=== PATIENT | female | born 1940 | race Caucasian/White ===

== ENCOUNTER 2016-07-16 18:25 | Inpatient (IN) | payer OTHER ==
[2016-07-16 19:30] LABS: MANUAL DIFF NEEDED? NO
[2016-07-16 19:38] LABS: BASO% 0.2 % (0.0-0.8); EOS# 0.35 X1000 (0.0-0.7); EOS% 3.1 % (0.0-10.0); HEMATOCRIT 31.9 % (37.0-47.0); HEMOGLOBIN 10.5 g/dL (12.0-16.0); IMM GRAN# 0.06 X1000 (0.0-0.04); IMM GRAN% 0.5 % (0.0-0.5); LYMPH# 1.29 X1000 (1.2-3.4); LYMPH% 11.4 % (20.5-51.1); MCH 28.9 PG (27-31); MCHC 32.9 g/dL (33-37); MCV 87.9 FL (81-99); MONO# 1.62 X1000 (0.11-0.59); MONO% 14.3 % (1.7-9.3); MPV 9.4 FL (7.4-10.4); NEUT% 70.5 % (42.2-75.2); PLT 456 X1000 (130-400); RBC 3.63 XMIL (4.2-5.4)
--- NOTE | 2016-07-16 19:38 | PROVIDER DOCUMENTATION ---
HPI-Rash/Wound/ReCheck - General Chief Complaint: Post Op Complaint Stated Complaint: LT LEG POSS. BLOOD CLOT Time Seen by Provider: 07/16/16 19:06 Source: patient Allergies/Adverse Reactions: Allergies Allergy/AdvReac Type Severity Reaction Status Date / Time Iodinated Contrast Media - Allergy RASH Verified 07/16/16 19:31 Oral and [IV Dye] Home Medications: Home Medication List Medication Instructions Recorded Confirmed Last Taken Type Potassium Chloride [Klor-Con M20] 20 meq PO DAILY 07/04/16 07/16/16 07/15/16 History Tramadol [Ultram] 50 - 100 mg PO Q4H PRN PRN #30 07/13/16 07/16/16 07/09/16 Rx tablet - History of Present Illness-Dermatology Nature of Presenting Problem: Pt is a 75 yof who presents to ER with CC of LLE pain. Pt reports that she recently had a spleenectomy performed, due to complications from prior incident , and reports that she was put on Home Health until she recovers completely. Pt reports that today her home health nurse came over, and pt told her nurse about having pain in her LLE, posterior L knee. Pt's nurse told pt that her LLE looked swollen and was warm and became worried that pt may have a DVT, so she sent pt to hospital. Location: reports: lower extremity (LLE) Quality: reports: painful Severity: reports: moderate Onset/Duration: reports: unsure, this morning Timing: reports: still present Context/Associated Symptoms: reports: tender area (LLE). denies: stab wound, burn, edema, fever, headache, lesion, numbness, paresthesia, rash, sore throat Review of Systems - Adult - REVIEW OF SYSTEMS - ADULT Constitutional: denies: chills, fever, fatique, night sweats Eyes: reports: no symptoms reported Ears, Nose, Mouth & Throat: reports: no symptoms reported Cardiovascular: denies: chest pain, heart murmur, irregular heart rate, palpitations, poor circulation, syncope Respiratory: denies: cough, dyspnea on exertion, excessive sputum production, hemoptysis, pleurisy, shortness of breath, wheezing Gastrointestinal: reports: no symptoms reported Genitourinary: reports: no symptoms reported Musculoskeletal: reports: frequent leg cramps, joint pain, joint swelling, muscle aches, muscle weakness. denies: bone pain, back pain, neck pain Integumentary: reports: no symptoms reported Neurological: reports: no symptoms reported Psychiatric: reports: no symptoms reported Endocrine: reports: no symptoms reported Hematologic/Lymphatic: reports: no symptoms reported Allergic/Immunologic: reports: no symptoms reported All Other Systems: Reviewed and Negative Past History - Adult - PAST MEDICAL HISTORY-ADULT Review of Records: reports: Nursing Assessment Review, Medications Reviewed - IMMUNIZATION STATUS Childhood Immunizations: See Nurse Assessment Flu Vaccine: See Nurse Assessment Physical Exam-General - PHYSICAL EXAM-ADULT Initial Vital Signs Reviewed: Yes - CONSTITUTIONAL General Appearance: appears well, alert, moderate distress - RESPIRATORY Respiratory: chest non-tender, lungs clear, normal breath sounds. negative: respiratory distress, decreased breath sounds, accessory muscle use, crackles, rhonchi, wheezing - CARDIOVASCULAR Cardiovascular: normal peripheral pulses, regular rate, rhythm. negative: bradycardia, tachycardia, irregularly irregular - LYMPHATIC Lymphatic: no adenopathy - MUSCULOSKELETAL Back Exam: no CVA tenderness, no vertebral tenderness Extremity: calf tenderness (L), inflammation, pedal edema (+1 LLE), swelling, tenderness. negative: no pedal edema, no calf tenderness, deformity, erythema, pulse deficit - SKIN Integumentary: normal color, normal turgor, warm/dry, swelling, tenderness, warm - NEUROLOGIC Neurologic: grossly normal, no motor/sensory deficits - PSYCHIATRIC Psych/Mental Status: normal thought content, normal thought process, oriented x 3, anxious Progress - PLAN OF CARE/RESULTS Progress/Plan/Lab Results: POC: Ultrasound of LLE for possible DVT. Vital Signs - 24 hr 07/16/16 18:53 Temperature 99.5 F Pulse Rate 79 Respiratory 18 Rate Blood Pressure 147/49 O2 Sat by Pulse 98 Oximetry Orders Category Date Time Status Admit - [facility] Routine AdmDCTranf 07/16/16 20:10 Ordered Activity - Bed Rest with BRP ORDERED Care 07/16/16 20:10 Active Vital Signs Order ARRIVAL TO ROOM Care 07/16/16 20:10 Active Regular Diet Diet 07/16/16 20:10 Active CBC WITH ELECTRONIC DIFF [HEME] Stat Lab 07/16/16 19:05 Completed CMP [COMPREHENSIVE METABOLIC PANEL] [CHEM] Stat Lab 07/16/16 19:05 Received Ddimer [D-DIMER] [CHEM] Stat Lab 07/16/16 19:05 Completed Heparin 25,000 Units/D5w 250 ml Med 07/16/16 20:15 Ordered IV 12 unit/kg/hr Venous U/S Left Leg [CV] Stat Ther 07/16/16 19:10 Ordered Transfer/Admit Order [TRANSFER] Routine Transfer 07/16/16 20:11 Ordered Laboratory Tests 07/16/16 07/16/16 19:05 19:05 WBC 11.32 H RBC 3.63 L Hgb 10.5 L Hct 31.9 L MCV 87.9 MCH 28.9 MCHC 32.9 L RDW Std Deviation 13.7 Plt Count 456 H MPV 9.4 Immature Gran % (Auto) 0.5 Neut % (Auto) 70.5 Lymph % (Auto) 11.4 L [place] % (Auto) 14.3 H Eos % (Auto) 3.1 Baso % (Auto) 0.2 Immature Gran # (Auto) 0.06 H Neut # (Auto) 7.98 H Lymph # (Auto) 1.29 [place] # (Auto) 1.62 H Eos # (Auto) 0.35 Baso # (Auto) 0.02 D-Dimer 5.03 H - CONSULTS/PCP/HOSPITALIST Notification #1 *Consult/PCP/Hospitalist*: Anthony Soto (Hospitalist PA) Time Discussed: 20:16 Consult Disposition: Admit Departure - Departure Time of Disposition Order: 20:14 DIAGNOSIS: DVT (deep venous thrombosis) Qualifiers: DVT location: lower extremity Affected thrombotic vein of extremity: unspecified vein of extremity Laterality: left Chronicity: acute Qualified Code( s): I82.402 - Acute embolism and thrombosis of unspecified deep veins of left lower extremity Disposition: ADMITTED INPATIENT 09 Certified Medical Emergency: Emergent Condition: Stable Additional Instructions: ED Follow Up Instructions: You have been treated by a care provider in the Emergency Department. These instructions are being provided to you so you can have an understanding of how to care for yourself upon discharge. Upon discharge from the Emergency Department, you are responsible for making arrangements for follow-up care by a physician of your choice. Take all prescribed medications as directed. Return to the Emergency Department immediately for any new or worsening symptoms. You may call the Physician Referral phone number at [phone] to obtain a list of Physicians who are taking new patients. Referrals: Catalina Novoa CRNP [Primary Care Provider] - Attestation - Scribe Verification/Attestation Scribe:: Jose Antonio Law Acting as Scribe for:: Kale Pool Scribe documention review:: This chart was documented by a scribe and accurately reflects the service the provider performed and the decisions made by the provider.
[2016-07-16 20:15] LABS: AGAP 13; ALBUMIN 2.5 g/dL (3.5-5.0); ALKALINE PHOSPHATASE 110 U/L (32-104); BUN 8 mg/dL (8-22); CALCIUM 8.4 mg/dL (8.8-10.2); CHLORIDE 98 mmol/L (98-107); COSMO 274; GOT 25 U/L (10-30); GPT 18 U/L (10-36); POTASSIUM 3.1 mmol/L (3.5-5.1); SODIUM 138 mmol/L (136-145); TCO2 27 mmol/L (25-35); TOTAL BILIRUBIN 0.61 mg/dL (0.20-1.00)
[2016-07-16] MEDS ORDERED: HEPARIN 25,000 UNITS/D5W 250 ML IV SCH ×2 (20:15→21:45)
[2016-07-16] MEDS ORDERED: ULTRAM PO PRN (21:29)
[2016-07-16] MEDS ORDERED: ZOFRAN IV PRN (22:05)
[2016-07-16] MEDS ORDERED: TYLENOL PO PRN (22:05)
[2016-07-16] MEDS ORDERED: KLOR-CON PO ONE (22:07)
[2016-07-17 03:09] LABS: MANUAL DIFF NEEDED? NO
[2016-07-17 03:12] LABS: BASO% 0.2 % (0.0-0.8); EOS# 0.51 X1000 (0.0-0.7); EOS% 4.5 % (0.0-10.0); HEMATOCRIT 30.2 % (37.0-47.0); IMM GRAN# 0.04 X1000 (0.0-0.04); IMM GRAN% 0.4 % (0.0-0.5); LYMPH# 1.37 X1000 (1.2-3.4); LYMPH% 12.1 % (20.5-51.1); MCH 29.2 PG (27-31); MCHC 33.1 g/dL (33-37); MONO# 1.44 X1000 (0.11-0.59); MONO% 12.7 % (1.7-9.3); MPV 9.3 FL (7.4-10.4); NEUT% 70.1 % (42.2-75.2); PLT 434 X1000 (130-400); RBC 3.43 XMIL (4.2-5.4)
[2016-07-17] MEDS ORDERED: HEPARIN 25,000 UNITS/D5W 250 ML IV SCH ×2 (05:46→16:40)
[2016-07-17] MEDS: HEPARIN IV PRN ×2 (06:25→16:35)
[2016-07-17] MEDS: KLOR-CON PO SCH (08:35)
[2016-07-17 09:42] LABS: AGAP 12; BUN 8 mg/dL (8-22); CALCIUM 8.4 mg/dL (8.8-10.2); CHLORIDE 101 mmol/L (98-107); COSMO 280; POTASSIUM 3.3 mmol/L (3.5-5.1); SODIUM 140 mmol/L (136-145); TCO2 27 mmol/L (25-35)
--- NOTE | 2016-07-17 09:53 | CONSULTATION ---
DATE OF CONSULTATION: 07/16/2016 HISTORY OF PRESENT ILLNESS: Briefly, this is a patient Dr. Acosta. She is a 75-year-old female status post 1 week ago an open splenectomy to facilitate diagnosis of presumed lymphoma. She recovered well following surgery and is at rehab. She developed acute pain and swelling in the last 24 hours of left lower extremity. Prior to her presentation in the emergency department, lower extremity venous ultrasound examination showed DVT of the tibial vessels at the left lower extremity. She does have a history of DVT approximately 50 years ago peripartum, but was not on any anticoagulants prior to this surgery. Denies any chest pain, shortness of breath. PHYSICAL EXAMINATION: Vital Signs: Temperature is 99.5 degrees, pulse 79, blood pressure 147/49, oxygen saturation 98% on room air. She is 108 pounds. General: She is alert, in no acute distress. HEENT: No scleral icterus. Cardiovascular: Normal rate, regular rhythm. Abdomen: Soft, nontender, nondistended. Integument: Warm and dry. Incision is clean, dry, and intact. Extremities: Left calf is tender and slightly swollen. No significant redness. Her right leg is normal with no pain there. REVIEWED LABS: White count is 11, hematocrit is 3 (it has been stable from her previous admission), platelets 456. Creatinine is normal at 0.9. D-dimer is elevated at 5.03. Platelets are appropriate post splenectomy at 456. ASSESSMENT/PLAN: A 75-year-old female status post splenectomy. Final pathology did show a B-cell lymphoma. She admits now with her second episode of deep vein thrombosis in her left lower extremity in a perioperative setting in the setting of a recent diagnosis of lymphoma. Given the constellation of these clinical findings, recent malignancy, recent surgery and recurrent deep vein thrombosis, I have recommended her be admitted to hospitalist service and gentle titration up with therapeutic anticoagulation with a heparin drip. 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 Need to monitor hematocrit closely. We will have contacted the hospitalist service to discuss this matter with them regarding future care. Otherwise, she can eat and appears to be doing very well from a surgical standpoint, having normal bowel function.
--- NOTE | 2016-07-17 10:00 | HISTORY AND PHYSICAL ---
CHIEF COMPLAINT: Left lower extremity edema and pain. HISTORY OF PRESENTING ILLNESS: This is a 75-year-old female with a history of hypertension, who underwent a recent splenectomy about a week ago, and started developing left lower extremity swelling and edema. She was evaluated in the ER and she was found to have a DVT and due to her presenting symptoms, it was thought that she would need hospitalization for further management. At the time of my examination, she denied any headaches, visual changes, nausea, vomiting, diarrhea, fever, chills, chest pain, shortness of breath, hemoptysis, or weight changes. Complained of left lower extremity pain. PAST MEDICAL HISTORY: Includes hypertension. PAST SURGICAL HISTORY: Splenectomy, cataract surgery, back surgery. ALLERGIES: IVP dye. CURRENT MEDICATIONS: List in the MAR. SOCIAL HISTORY: Denies any history of smoking, alcohol, or illicit drug use. Lives with her and daughter. FAMILY HISTORY: No history of coronary disease. REVIEW OF SYSTEMS: Twelve point systems listed as in HPI. Other systems negative. PHYSICAL EXAMINATION: GENERAL: Cooperative, friendly female. She is resting comfortably now. VITAL SIGNS: Temperature 99.5 degrees, pulse 79, respiration 18, blood pressure 147/49, she is saturating 98%. HEENT: Atraumatic, normocephalic. Extraocular movements intact. PERRLA. NECK: Supple. CHEST: Clear to auscultation. CARDIOVASCULAR: Regular rhythm. ABDOMEN: Soft, nontender. Positive bowel sounds. EXTREMITIES: Left lower extremity edema and tenderness. NEUROLOGIC: She is awake, alert, oriented x3. : No bladder distention. SKIN: Warm. LABORATORIES AND STUDIES: Sodium 138, potassium 3.1, chloride 90, CO2 27, BUN is 8, creatinine 0.9, glucose is 105. WBC 11.32, hemoglobin 10.5, hematocrit 31.9, platelets 456,000. ASSESSMENT: This is a 75-year-old female with a history of hypertension, who underwent recent splenectomy about a week ago and developed a left lower extremity edema and tenderness. She was found to have a DVT and she will need hospitalization for further management. 1. Left lower extremity deep vein thrombosis. 2. Status post splenectomy. 3. Hypertension. 4. Mild hypokalemia. PLAN: 1. We will admit the patient to the medical floor with telemetry. 2. Start patient on a heparin drip without any bolus. 3. We will consult surgery to follow along as she had a recent splenectomy and postop care. 4. We will monitor blood pressure closely and resume antihypertensive agents. 5. We will replace her electrolytes and continue to monitor potassium. 6. We will continue to follow and reassess.
[2016-07-17] MEDS ORDERED: KLOR-CON PO ONE (16:01)
--- NOTE | 2016-07-17 17:16 | PROGRESS NOTE ---
DATE: 07/17/2016 SUBJECTIVE: The patient says she is feeling a little better. She has some mild abdominal pain and nausea and poor appetite. Her left leg is still hurting some. OBJECTIVE: Vital Signs: She is afebrile. Vital signs are stable. General: She is alert and oriented x4. No acute distress. CV: Regular rate and rhythm. Respiratory: Bilateral breath sounds. No work of breathing. GI: Soft. Minimal tenderness. Incision in the left upper quadrant is clean dry and intact. There is some mild bruising, but no erythema or drainage. Extremities: Bilateral lower extremities were examined. There is mild edema and obesity. No definite laterality is appreciated. I could not palpate any palpable cords in her popliteal fossa or calf. LABORATORY: White blood cell count 11,000, hemoglobin 10, hematocrit 30, platelet count 434. Electrolyte panel reviewed and unremarkable. ASSESSMENT AND PLAN: A 75-year-old female, status post recent open splenectomy for what is now known to be a B-cell lymphoma. She has now also developed a left lower extremity DVT I believe below the knee. The report on that study is pending. Dr. Cindi Koroma has been consulted for the lymphoma, as well as management of her DVT. This is a recurrent DVT. She had one about 50 years ago in her peripartum period. She currently is on a heparin drip and the plan is to transition her to Xarelto.
--- NOTE | 2016-07-17 17:39 | PROGRESS NOTE ---
DATE: 07/17/2016 SUBJECTIVE: This patient states that she has been having left lower extremity discomfort. She denies nausea, vomiting, diarrhea, constipation. She is not complaining of abdominal pain, just mild discomfort around the surgical scar. No fever, no chills. OBJECTIVE: Vital Signs: Temperature 98.2 degrees, pulse 94, respiratory rate 20, blood pressure 136/64, oxygen saturation 99% on room air. HEENT: Head normocephalic. No trauma. PERRLA. Neck: Supple. No JVD. No masses. Central trachea. Chest: Clear to auscultation. No wheezing. No rales. Cardiovascular: Regular rhythm and rate. No murmurs. Abdomen: Soft, nontender, positive bowel sounds. Extremity: Left lower extremity edema and mild tenderness. Neurological: This patient is alert and oriented x3. No focal neurological deficits. LABORATORY: WBC 11.3, hemoglobin 10, hematocrit 30.2, platelets 434,000. Sodium 140, potassium 3.3, chloride 101, bicarbonate 27, BUN 8, creatinine 0.9, glucose 145, calcium 8.4. ASSESSMENT AND PLAN: 1. Left lower extremity deep venous thrombosis, Hematology/Oncology has been consulted. We will continue with the anticoagulation for now. Probably we will switch prior to discharge the heparin drip to one of oral anticoagulation. 2. Spleen mass status post splenectomy done on 07/09/2016. 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 Because of this, I called Hematology/Oncology, they have evaluated this patient already. I am waiting for the report for recommendations. For now, we will continue with the same management. 3. Hypertension. The blood pressure has been stable. Continue to monitor. 4. Hypokalemia. I will replace the potassium today. She has been getting potassium daily as well. 5. Normocytic anemia. Stable. We will monitor.
--- NOTE | 2016-07-17 22:18 | Extremity Venous Study ---
PROCEDURE NAME: Venous U/S Left Leg - 07/16/2016 REFERRING PHYSICIAN: Howard Velazco M.D. and READING PHYSICIAN: Jose Acosta M.D. LIME BOILER: Jm. INDICATION: Left leg swelling. Recent history of splenectomy. FINDINGS: Deep and superficial veins of the left lower extremity were imaged throughout their course. The superficial veins were compressible and patent. The left common femoral, superficial femoral, greater saphenous, deep femoral, and popliteal veins were imaged satisfactorily. They were compressible and patent and without thrombus. However the posterior tibial and peroneal veins were noted to be containing thrombus. They were decreased in compressibility. In addition, the left lesser saphenous vein had thrombus and was noncompressible. INTERPRETATION: Acute deep vein thrombosis was present involving the left posterior tibial and peroneal veins. There is also acute superficial venous thrombosis of the lesser saphenous vein on the left. These results were called to the referring physicians.
[2016-07-18] MEDS ORDERED: HEPARIN 25,000 UNITS/D5W 250 ML IV SCH (01:20)
[2016-07-18 06:10] LABS: MANUAL DIFF NEEDED? NO
[2016-07-18 06:23] LABS: BASO% 0.2 % (0.0-0.8); EOS# 0.57 X1000 (0.0-0.7); EOS% 4.4 % (0.0-10.0); HEMOGLOBIN 10.2 g/dL (12.0-16.0); IMM GRAN# 0.06 X1000 (0.0-0.04); IMM GRAN% 0.5 % (0.0-0.5); LYMPH# 1.33 X1000 (1.2-3.4); LYMPH% 10.2 % (20.5-51.1); MCH 29.3 PG (27-31); MCHC 32.9 g/dL (33-37); MCV 89.1 FL (81-99); MONO# 1.62 X1000 (0.11-0.59); MONO% 12.4 % (1.7-9.3); MPV 9.2 FL (7.4-10.4); NEUT% 72.3 % (42.2-75.2); PLT 498 X1000 (130-400); RBC 3.48 XMIL (4.2-5.4)
[2016-07-18 06:34] LABS: AGAP 11; BUN 10 mg/dL (8-22); CALCIUM 8.2 mg/dL (8.8-10.2); CHLORIDE 101 mmol/L (98-107); COSMO 280; POTASSIUM 3.6 mmol/L (3.5-5.1); SODIUM 140 mmol/L (136-145); TCO2 28 mmol/L (25-35)
[2016-07-18] MEDS: HEPARIN 25,000 UNITS/D5W 250 ML IV SCH ×2 (10:15→23:28)
[2016-07-18] MEDS: KLOR-CON PO SCH (10:16)
[2016-07-18] MEDS ORDERED: XARELTO PO SCH (14:15)
--- NOTE | 2016-07-18 16:08 | PROGRESS NOTE ---
DATE: 07/18/2016 SUBJECTIVE: This patient states that she is feeling a little bit better. She is still complaining of left lower extremity discomfort/pain. She is not complaining of abdominal pain, just mild discomfort around the surgical scar. No fever. No chills. OBJECTIVE: Vital Signs: Temperature 99 degrees, pulse 76, respiratory rate 14, blood pressure 126/57, oxygen saturation 100% on 2 L of nasal cannula. HEENT: Head normocephalic. No trauma. PERRLA. Neck: Supple. No JVD. No masses. Central trachea. Chest: Clear to auscultation. No wheezing. No rales. Cardiovascular: RRR. No murmurs. Abdomen: Soft, nontender. Positive bowel sounds. Mild tenderness to palpation around the surgical scar that looks clean and dry. Extremities: Left lower extremity edema and mild tenderness at the level of the calf. Neurological: The patient is alert and oriented x3. No focal neurological deficits. LABORATORY: WBC 13, hemoglobin 10.2, hematocrit 31, platelets 498,000. Sodium 140, potassium 3.6, chloride 101, bicarbonate 28, BUN 10, creatinine 0.9, glucose 126, calcium 8.2. ASSESSMENT AND PLAN: 1. Left lower extremity deep vein thrombosis. She has been on heparin drip and will switch this patient to Xarelto. We will start the treatment at 7 p.m. and we will stop the heparin drip. 2. Spleen mass status post splenectomy done on 07/09/2016. We have a positive pathology result that showed diffuse large B cell lymphoma, germinal center subtype. Because of this hematology/oncology is following this patient. They will need some studies done as an outpatient like a PET scan. Once this patient is better they will monitor this patient in the clinic. 3. Hypertension. The blood pressure has been stable. Continue to monitor. 4. Hypokalemia, stable. The potassium today is normal. Continue to monitor.
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
--- NOTE | 2016-07-18 18:24 | PROGRESS NOTE ---
DATE: 07/18/2016 SUBJECTIVE: The patient says she feels okay. No significant pain. She is still sore in her abdomen. Her appetite is still low. She has not moved out of bed at all since admission. OBJECTIVE: Vital signs: She is afebrile. Vital signs are stable. General: Alert and oriented x4. No acute distress. Gastrointestinal: Soft, nondistended. Appropriately tender. Her incision is clean, dry, and intact without redness or drainage. I removed every other staple. IMAGING: Her ultrasound report shows DVT in the calf veins on the left. Her lab work is stable. ASSESSMENT AND PLAN: She is status post open splenectomy with a new diagnosis of B-cell lymphoma and now has been readmitted with a new left calf DVT. She is being transitioned from heparin drip to Xarelto tonight. I will consult physical therapy to help her with mobility. Hopefully she can be discharged tomorrow.
[2016-07-18] MEDS: XARELTO PO SCH (18:57)
[2016-07-19 04:38] VITALS: BP 125/46
[2016-07-19 06:37] LABS: MANUAL DIFF NEEDED? NO
[2016-07-19 06:44] LABS: BASO% 0.3 % (0.0-0.8); EOS# 0.73 X1000 (0.0-0.7); EOS% 6.5 % (0.0-10.0); HEMATOCRIT 31.6 % (37.0-47.0); HEMOGLOBIN 10.2 g/dL (12.0-16.0); IMM GRAN# 0.07 X1000 (0.0-0.04); IMM GRAN% 0.6 % (0.0-0.5); LYMPH# 1.21 X1000 (1.2-3.4); LYMPH% 10.8 % (20.5-51.1); MCH 29.2 PG (27-31); MCHC 32.3 g/dL (33-37); MCV 90.5 FL (81-99); MONO# 1.47 X1000 (0.11-0.59); MONO% 13.1 % (1.7-9.3); MPV 9.4 FL (7.4-10.4); NEUT% 68.7 % (42.2-75.2); PLT 514 X1000 (130-400); RBC 3.49 XMIL (4.2-5.4)
[2016-07-19 07:06] LABS: AGAP 8; BUN 11 mg/dL (8-22); CALCIUM 8.3 mg/dL (8.8-10.2); CHLORIDE 102 mmol/L (98-107); COSMO 278; POTASSIUM 3.7 mmol/L (3.5-5.1); SODIUM 139 mmol/L (136-145); TCO2 29 mmol/L (25-35)
[2016-07-19] MEDS: XARELTO PO SCH (07:12)
[2016-07-19] MEDS: KLOR-CON PO SCH (08:39)
--- NOTE | 2016-07-19 13:12 | PROGRESS NOTE ---
DATE: 07/19/2016 SUBJECTIVE: The patient is feeling better. She is eating a little and has walked with physical therapy today. She is hopeful to go home. OBJECTIVE: Vital signs: She is afebrile. Vital signs are stable. General: She is alert and oriented x4. No acute distress. Gastrointestinal: Soft, nondistended. Appropriately tender. The incisions is clean, dry, and intact. LABORATORY: White blood cell count 11,000, hemoglobin 10, platelet count 514,000. Electrolyte panel reviewed and unremarkable. ASSESSMENT AND PLAN: This is a 75-year-old female status post splenectomy with a diagnosis of B- cell lymphoma and now a newly discovered left calf DVT. She is being transition from IV heparin to p.o. anticoagulation. I believe she is set to go home with Xarelto. She is safe for discharge from a surgical standpoint and can follow up with me next week.
--- NOTE | 2016-07-19 13:29 | ECHO REPORT ---
ORDER DATE: 07/18/2016 INTERPRETING PHYSICIAN: Dr. Magdaleno Albright ECHOCARDIOGRAPHIC MEASUREMENTS: Interventricular septum: 1.0 cm. Left ventricular posterior wall: 1.0 cm. Diastolic diameter: 4.6 cm. Left atrium: 3.4 cm. Aortic root: 3.1 cm. SUMMARY OF THE 2-DIMENSIONAL IMAGIN. Aortic valve leaflets are trileaflet. Pulmonic valve was normal. Tricuspid valve was normal. There was trace pulmonary regurgitation. Mitral valve was normal. 2. Normal left ventricular cavity size. Estimated ejection fraction of 60%.. 3. There is mild mitral regurgitation. 4. Peak velocity across the aortic valve less than 2 m/sec. There is no aortic stenosis or regurgitation. There is mild tricuspid regurgitation. Peak velocity across the tricuspid valve was 3 m/sec. Pulmonary artery systolic pressure 46 mmHg. 5. There is no pericardial effusion or obvious intracardiac mass or thrombus seen.
--- NOTE | 2016-07-19 17:24 | DISCHARGE SUMMARY ---
ADMISSION DATE: 07/16/2016 DISCHARGE DATE: 07/19/2016 CONSULTATIONS: 1. Cindi Koroma M.D., Oncology. 2. Mendoza Velazco M.D., General Surgery. PERTINENT PROCEDURES: Left leg venous Dopplers showed acute DVT that was present involving the left posterior tibial and peroneal veins. Also acute superficial venous thrombosis of the lesser saphenous vein on the left. DISCHARGE DIAGNOSES: 1. Left lower extremity DVT. Patient was initially on a heparin drip. She has been transitioned to p.o. Xarelto. She will be going home with home health as well as physical therapy. 2. 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 3. Diffuse large B-cell lymphoma [facility] subtype. Patient being followed by Oncology. They would like a PET scan on an outpatient basis. 4. Hypertension stable. 5. Hypokalemia stable. HOSPITAL COURSE: Ms. Fatima is a 75-year-old, female with a history of hypertension who recently underwent a splenectomy a week ago. Also diagnosed with B-cell lymphoma by pathology. She started developing some left lower extremity swelling and edema. She was evaluated in the ED and found to have a left lower extremity deep venous thrombosis. The patient was admitted to the hospital and heparin drip without bolus was initiated. Hematology, Dr. Cindi Koroma, did see the patient. Patient will need chemotherapy. This will be done on an outpatient basis. As well she is to get a PET scan on an outpatient basis. Patient was transitioned off the heparin drip to oral Xarelto and patient will be going home on 15 mg p.o. b.i.d. for 21 days and then [address] daily [address] Acosta did consult Physical Therapy for the patient to help with her mobility. Dr. Gardner does feel that the patient is appropriate for discharge home today. 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 Rehabilitation was offered to her. 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 Patient does have home health as well as physical therapy set up. VITAL SIGNS AT TIME OF DISCHARGE: Temperature is 98.2 degrees, heart rate 77, respirations 20, blood pressure is 125/46, O2 is 100% on 2 L nasal cannula. DISCHARGE DIET: Regular with Boost supplement. DISCHARGE MEDICATIONS: 1. Klor-Con 20 mEq p.o. daily. 2. Ultram 50 to 100 mg p.o. daily. 3. Xarelto 50 mg p.o. b.i.d. for the first 21 days and then patient will start Xarelto 20 mg p.o. daily. FOLLOWUP: 1. The patient is being discharged home with home health. 2. She is to follow up with her oncologist where she will need an outpatient PET scan as well as initiation of chemotherapy. 3. She can follow up with Dr. Mendoza Velazco as indicated for postop splenectomy. 4. She can follow up with her primary care physician, KANCHAN Allen. 5. Patient has also be given instructions on her new medication, Xarelto. There is a risk for bleeding and signs to watch out for. DISCHARGE TIME: 30 minutes. Dictated by KANCHAN Foreman for Art Shah MD
== END 2016-07-19 14:15 | disposition home health service (06) | DRG 300 ==
LOC: ED 18:25 → EDIPHOLD 20:52 → 4N 20:53
PROVIDERS: ATTEND Internal Medicine
DX: I82.442 Acute embolism and thrombosis of left tibial vein (principal); C83.37 Diffuse large B-cell lymphoma, spleen; I82.492 Acute embolism and thrombosis of other specified deep vein of left lower extremity; I82.812 Embolism and thrombosis of superficial veins of left lower extremity; I10 Essential (primary) hypertension; E87.6 Hypokalemia; D64.9 Anemia, unspecified; K21.9 Gastro-esophageal reflux disease without esophagitis; Z90.81 Acquired absence of spleen; Z86.718 Personal history of other venous thrombosis and embolism; Z80.9 Family history of malignant neoplasm, unspecified; Z79.899 Other long term (current) drug therapy
CPT/HCPCS: 80048; 80053; 83615; 85025; 85379; 85730; 93306; 93971; 96374; J1644; 97110-GP; 97116-GP

== ENCOUNTER 2016-08-10 09:06 | Day surgery (SDC) ==
[2016-08-10] MEDS ORDERED: LR 1,000 ML ONE (09:43)
[2016-08-10] MEDS ORDERED: KEFZOL 1 GM/D5W 50 ML ONE (09:44)
[2016-08-10 09:53] LABS: MANUAL DIFF NEEDED? NO
[2016-08-10 09:59] LABS: BASO% 0.4 % (0.0-0.8); EOS# 0.06 X1000 (0.0-0.7); EOS% 0.7 % (0.0-10.0); HEMATOCRIT 35.8 % (37.0-47.0); HEMOGLOBIN 11.2 g/dL (12.0-16.0); LYMPH# 1.54 X1000 (1.2-3.4); LYMPH% 19.1 % (20.5-51.1); MCH 28.1 PG (27-31); MCHC 31.3 g/dL (33-37); MCV 89.9 FL (81-99); MONO# 1.25 X1000 (0.11-0.59); MONO% 15.5 % (1.7-9.3); MPV 10.2 FL (7.4-10.4); NEUT% 64.3 % (42.2-75.2); PLT 347 X1000 (130-400); RBC 3.98 XMIL (4.2-5.4)
[2016-08-10] MEDS ORDERED: HEPARIN ONE (11:05)
[2016-08-10] MEDS ORDERED: NS 250 ML ONE (11:05)
[2016-08-10] MEDS ORDERED: MARCAINE 0.25% PF/EPI 1:200,000 ONE (11:05)
[2016-08-10] MEDS ORDERED: XYLOCAINE 1%/EPI 1:100,000 ONE (11:05)
[2016-08-10 12:30] LABS: BANDS 4 % (0-1); LYMPHS 20 % (21-51); MONO 14 % (1-9)
[2016-08-10] MEDS ORDERED: DIPRIVAN 1% ONE (12:32)
[2016-08-10 12:45] LABS: FLOW CYTOMETERY SOURCE BONE MARROW; LEUKEMIA LYMPHOMA BY FLOW REFERRED FOR TESTING
[2016-08-10] MEDS ORDERED: ZOFRAN IV PRN (13:06)
[2016-08-10] MEDS ORDERED: BUPRENEX IV PRN (13:06)
[2016-08-10] MEDS ORDERED: NORCO-7.5 PO PRN (13:06)
--- NOTE | 2016-08-10 13:20 | Diag Imaging Result Document ---
PROCEDURE NAME: CHEST-PORTABLE - 08/10/2016 SINGLE FRONTAL RADIOGRAPH OF THE CHEST: COMPARISON: 05/30/2016. FINDINGS: There is a newly placed right chest port. The tip projects over the lower SVC in the expected position just superior to the atriocaval junction. There is no evidence of pneumothorax post placement. Inspiration is suboptimal. The lungs appear to be grossly clear. Cardiac silhouette and central vasculature are grossly unremarkable. IMPRESSION: Interval placement of right chest port in the expected position as described with no evidence of pneumothorax post placement.
[2016-08-10 13:26] VITALS: BP 141/60
[2016-08-10] MEDS ORDERED: XYLOCAINE-MPF 2% ONE (13:41)
--- NOTE | 2016-08-10 14:51 | OPERATIVE NOTE ---
PROCEDURE DATE: 08/10/2016 PREOPERATIVE DIAGNOSIS: Lymphoma. POSTOPERATIVE DIAGNOSIS: Lymphoma. PROCEDURE PERFORMED: Insertion of Port-A-Cath with fluoroscopic and ultrasound guidance. SURGEON: Jose Acosta MD ANESTHESIA: Local, MAC. ESTIMATED BLOOD LOSS: 5 mL. COMPLICATIONS: None apparent. SPECIMENS: None. FINDINGS: The right internal jugular vein was visualized with the Site-Rite ultrasound. It was compressible and patent and without thrombus. Fluoroscopic imaging revealed the wire passing into the right atrium and the tip of the catheter positioning to the superior vena cava-right atrial junction. TECHNIQUE: She was brought to the operating room and placed supine on the table. She was prepped and draped in the usual sterile fashion. IV sedation was induced. Lidocaine 1% was used to anesthetize the skin and subcutaneous tissues below the right clavicle, where an incision was made with a 15 blade. Dissection was carried down through the subcutaneous tissue with cautery. A pocket was created anterior to the fascia with cautery and blunt finger dissection. She was then placed in Trendelenburg. The right internal jugular vein was found with the ultrasound. The skin over the vein was anesthetized with lidocaine. An incision was made in the skin over the vein with an 11 blade. The vein was then accessed with the syringe and needle under ultrasound guidance. The wire passed through the needle into the vein and was confirmed to be in the right atrium with fluoroscopy. The subcutaneous tissues between the 2 incisions was anesthetized with lidocaine and the catheter was tunneled subcutaneously from the lower incision out through the neck incision. The sheath and dilator were then passed over the wire into the jugular vein. The wire and dilator were removed. The catheter was passed into the sheath. The sheath was removed. The tip of the catheter was positioned at the appropriate junction with fluoroscopy. The catheter was cut to size and fixed to the port. The port was anchored to the chest fascia with 2-0 Surgipro at 2 o'clock, 6 o'clock, and 10 o'clock. The port was accessed and martínez back blood easily. It was flushed with heparinized saline easily. The incisions were closed with interrupted subcutaneous 3-0 Polysorb and a running 4-0 subcuticular Monocryl and Steri-Strips. There were no apparent complications. I turned her over to Dr. Marcano for bone marrow biopsy at this point.
== END 2016-08-10 13:30 | disposition home or self-care (01) ==
LOC: OR 09:06
PROVIDERS: ATTEND Surgery
DX: C83.37 Diffuse large B-cell lymphoma, spleen (principal); D63.0 Anemia in neoplastic disease; I10 Essential (primary) hypertension; Z90.81 Acquired absence of spleen; K21.9 Gastro-esophageal reflux disease without esophagitis; Z85.828 Personal history of other malignant neoplasm of skin; Z86.718 Personal history of other venous thrombosis and embolism; Z79.899 Other long term (current) drug therapy; Z79.01 Long term (current) use of anticoagulants; Z82.49 Family history of ischemic heart disease and other diseases of the circulatory system
CPT/HCPCS: 71010; 77001; 85025; 85999; 88305; 88311; 88313; C1788; J0690; J7050; J7120

== ENCOUNTER 2016-11-19 12:21 | Inpatient (IN) ==
[2016-11-19] MEDS ORDERED: TYLENOL PO ONE (15:00)
[2016-11-19] MEDS ORDERED: BENADRYL PO ONE (15:00)
[2016-11-19] MEDS ORDERED: INVANZ 1 GM/NS 1 GM/50 ML IVPB IV ONE (15:00)
[2016-11-19] MEDS ORDERED: NS 500 ML IV ONE (15:00)
--- NOTE | 2016-11-19 15:07 | Diag Imaging Result Doc PS360 ---
EXAM: CHEST-2 VIEWS INDICATION: neutropenic fever TECHNIQUE: 2 views COMPARISON: 08/10/2016 FINDINGS: A right chest port is in stable position. There is suggestion of minimal subsegmental atelectasis at the left lung base. The lungs are grossly clear otherwise. There is no discrete pleural fluid collection or pneumothorax. The cardiomediastinal silhouette and central vasculature are grossly unremarkable. IMPRESSION: Suggestion of minimal subsegmental atelectasis at the left lung base. No definite acute pathology, otherwise. Electronically signed by Milton Scanlon 11/19/2016 3:05 PM
[2016-11-19] MEDS ORDERED: ZOFRAN IV PRN (15:21)
[2016-11-19] MEDS ORDERED: DUONEB (A & A) INH PRN (15:21)
[2016-11-19] MEDS ORDERED: ZOSYN 3.375 GM/NS 3.375 GM/50 ML IVPB IV SCH (15:30)
[2016-11-19] MEDS: DUONEB (A & A) INH SCH ×3 (16:00→22:35)
[2016-11-19 16:02] LABS: INR 1.2; PROTIME 12.7 Seconds (9.2-11.7); PTT 32.2 Seconds (22.0-36.0)
[2016-11-19 16:17] LABS: AGAP 12; ALBUMIN 3.1 g/dL (3.5-5.0); ALKALINE PHOSPHATASE 75 U/L (32-104); BUN 19 mg/dL (8-22); CALCIUM 8.7 mg/dL (8.8-10.2); CHLORIDE 100 mmol/L (98-107); COSMO 282; GOT 12 U/L (10-30); GPT 13 U/L (10-36); MAGNESIUM 1.9 mg/dL (1.5-2.7); POTASSIUM 3.4 mmol/L (3.5-5.1); SODIUM 140 mmol/L (136-145); TCO2 28 mmol/L (25-35); TOTAL BILIRUBIN 1.34 mg/dL (0.20-1.00); TOTAL PROTEIN 5.5 g/dL (6.3-8.3)
[2016-11-19 16:27] LABS: HEMATOCRIT 25.1 % (37.0-47.0); HEMOGLOBIN 8.4 g/dL (12.0-16.0); LYMPH# 0.13 X1000 (1.2-3.4); MCH 33.6 PG (27-31); MCHC 33.5 g/dL (33-37); MCV 100.4 FL (81-99); MONO# 0.13 X1000 (0.11-0.59); PLT < 6 X1000 (130-400)
[2016-11-19] MEDS ORDERED: VANCOMYCIN IV PER PHARMACY MISC SCH (16:30)
[2016-11-19 16:38] LABS: MANUAL DIFF NEEDED? NO
[2016-11-19] MEDS: NS 1,000 ML IV SCH (16:39)
[2016-11-19] MEDS: MYCOSTATIN SUSP PO SCH ×2 (16:45→22:32)
[2016-11-19] MEDS ORDERED: VANCOMYCIN 1,400 MG in NS 250 ML IV ONE ×2 (18:00→21:00)
--- NOTE | 2016-11-19 18:15 | HISTORY AND PHYSICAL ---
ONCOLOGIST: Cindi Koroma MD PRIMARY CARE PROVIDER: KANCHAN Allen CHIEF COMPLAINT: Generalized weakness, abdominal pain, and abnormal labs. HISTORY OF PRESENT ILLNESS: Ms. Fatima is a 76-year-old female with a history of diffuse B-cell lymphoma, status post splenectomy in July 2016. She has been on chemotherapy under the direction of Dr. Koroma an received her last dose on 11/12/2016. Over the past few days, she has had worsening fatigue, abdominal pain, some mild diarrhea with hematochezia, and a fever. The pain is described in the right upper and lower quadrant. She denies any vomiting, but does have some cough and has been having some yellowish nasal discharge. Fevers reached a T-max of 100.5 degrees Fahrenheit. She came in to see Dr. Koroma today who martínez blood work and saw that she was neutropenic and ultimately recommended the patient be directly admitted to our service. She is currently on the floor, hemodynamically stable, and labs are pending. PAST MEDICAL HISTORY: 1. Diffuse B-cell lymphoma. 2. Hypertension. 3. History of DVT. 4. Active chemotherapy. 5. GERD. 6. Chronic anemia. PAST SURGICAL HISTORY: She has had a splenectomy, back surgery, cataract surgery, and right breast biopsy. SOCIAL HISTORY: The patient lives with her . She has no history of tobacco, alcohol, or drug use. FAMILY HISTORY: Noncontributory at this time. REVIEW OF SYSTEMS: A 14-point review of systems was obtained and found to be negative with the exception of the HPI. HOME MEDICATIONS: Currently being compiled. ALLERGIES: IV and oral contrast dye. PHYSICAL EXAMINATION: VITAL SIGNS: Pending. GENERAL: This is a chronically ill- and weak-appearing 76-year-old female, lying in the hospital bed. No acute distress. NEUROLOGIC: The patient is awake, alert, oriented. She follows commands without focal deficits. HEENT: Head is atraumatic, normocephalic. Her pupils are equal, round, and reactive to light. Oral mucosa is dry. Trachea is midline. No JVD. No carotid bruits. CHEST: Clear to auscultation bilaterally. CARDIOVASCULAR: Regular rate and rhythm. S1 and S2 are noted. GASTROINTESTINAL: Right upper quadrant tenderness to palpation. Belly is soft with hypoactive bowel sounds. No distention or rigidity. EXTREMITIES: Trace edema bilaterally. Pulses palpable, but diminished. DIAGNOSTIC DATA: Pending. ASSESSMENT AND PLAN: 1. Neutropenic fever: We are getting a repeat set of labs. In the mean time, we will order blood cultures, urine cultures, sputum cultures, and start the patient on Merrem. We will order a chest x-ray, abdomen and pelvis CT, complete blood work, and urinalysis. 2. Abdominal pain with mild hematochezia: Unclear of the significance, but we are going to check a CT. Unfortunately, we cannot do this with contrast as she is allergic to both oral and IV. We are checking a complete metabolic profile, and continue merrem. If she has any type of surgical indication we will consult Dr. Acosta. 3. Hypertension, stable. All of her oral medications are on hold. We will treat as needed if necessary. 4. Diffuse B-cell lymphoma: Will defer any management to Dr. Koroma's team.. 5. Deep vein thrombosis prophylaxis: We will put a sequential compression device on the unaffected leg without the history of deep vein thrombosis. No anticoagulation as she had some gastrointestinal bleeding, and no extremity sequential compression device on the leg that has a history of recent deep vein thrombosis. 6. Further recommendations to follow. Dictated by KANCHAN Paulino for Eber Becerra MD cc: KANCHAN Paulino MD Heather Shah, MD MTDD
[2016-11-19] MEDS: MERREM 1 GM in NS 50 ML IV SCH (18:52)
[2016-11-20] MEDS: MERREM 1 GM in NS 50 ML IV SCH ×3 (01:03→16:38)
--- NOTE | 2016-11-20 03:43 | PROGRESS NOTE ---
DATE: 11/19/2016 ADDENDUM REPORT After discussing the case I am going to put her on meropenem 1 g q.8 hours. We will not start the vancomycin. Her labs came back. She has 0 neutrophils, total white count is 260, she has 6 platelets, so we will defer to Dr. Koroma whether we need to consider. She is not having any bleeding or bruising that I can recognize. I am not sure if we need to transfuse any platelets at this point. We will get a CT of her abdomen and pelvis. cc: Eber Becerra MD
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
[2016-11-20] MEDS: DUONEB (A & A) INH SCH ×6 (03:45→23:25)
[2016-11-20] MEDS: NS 1,000 ML IV SCH ×2 (05:58→10:20)
[2016-11-20 07:37] LABS: HEMATOCRIT 20.4 % (37.0-47.0); HEMOGLOBIN 6.7 g/dL (12.0-16.0); MCH 33.2 PG (27-31); MCHC 32.8 g/dL (33-37); RBC 2.02 XMIL (4.2-5.4)
[2016-11-20 07:55] LABS: AGAP 8; BUN 15 mg/dL (8-22); CALCIUM 8.4 mg/dL (8.8-10.2); CHLORIDE 105 mmol/L (98-107); COSMO 288; POTASSIUM 2.9 mmol/L (3.5-5.1); SODIUM 144 mmol/L (136-145); TCO2 31 mmol/L (25-35)
--- NOTE | 2016-11-20 08:13 | Diag Imaging Result Doc PS360 ---
EXAM: ABDOMEN/PELVIS W/O CONTRAST HISTORY: neutropenic fever, abd pain, hematochezia TECHNIQUE: CT urogram without contrast COMMENT: There is some apparent fibrosis in the left lower lobe and lingula. This was also the case at the time the previous study of 06/18/2016. Since the previous study the spleen has been resected. There is enlargement of the left adrenal gland which was also present at the time the previous study and there is enlargement of the lateral lobe of the right adrenal gland possibly due to a adenoma which was also present at the time of the previous examination. There appears to be small stones and possibly sediment within the gallbladder. No para cholecystic fluid is identified. There is some stranding in the mesenteric fat anterolaterally in the left upper quadrant which was not present previously. There is retained food particles in the stomach. There is some stool throughout the colon. The small bowel is not distended. There is some mild mesenteric panniculitis which is actually somewhat improved since the previous study. There is no evidence of hydronephrosis or stones in the kidneys. There is at least one cyst present on the right side. The appendix is normal in appearance. The small bowel is not distended. There is no significant free fluid. There is some sclerosis around the left sacroiliac joint particularly on the iliac side, this has not changed appreciably since 05/30/2016. There are some spondylotic changes in the lumbar spine. IMPRESSION: Interval splenectomy. Mild mesenteric panniculitis which apparently is stable. Nonspecific inflammatory changes in the mesenteric fat in the left upper quadrant which may be a result of the splenectomy. Electronically signed by Brian Hidalgo 11/20/2016 8:11 AM
[2016-11-20] MEDS: MYCOSTATIN SUSP PO SCH ×2 (08:27→23:15)
[2016-11-20] MEDS ORDERED: POTASSIUM CHLORIDE 40 MEQ/SWI 40 MEQ/100 ML IVPB IV ONE (08:30)
--- NOTE | 2016-11-20 11:03 | PROGRESS NOTE ---
DATE: 11/20/2016 SUBJECTIVE: This patient states that she is feeling much better. She is not complaining of any specific pain. No nausea, no vomiting, no diarrhea. Last bowel movement was yesterday and apparently she saw some blood on it. OBJECTIVE: Vital Signs: Temperature 98.8 degrees, pulse 96, respiratory rate 14, blood pressure 112/62, oxygen saturation 93 on room air. HEENT: Head normocephalic. No trauma. PERRLA. Neck: Supple. No JVD. No masses. Central trachea. Abdomen: Mild pain at the level of the right upper and epigastric area. Extremities: No edema. No clubbing. No cyanosis. Neurological examination: The patient is alert and oriented x3. No focal deficits. LABORATORY: WBC 0.6, hemoglobin 6.7, hematocrit 20.4, platelets 36. Sodium 144, potassium 2.9, chloride 105, bicarbonate 31, BUN 15, creatinine 0.6, glucose 104, calcium 8.4. ASSESSMENT AND PLAN: 1. Febrile neutropenia. CT of the abdomen done yesterday showed instead about interval splenomegaly, mild mesenteric panniculitis which apparently was stable. Nonspecific inflammatory changes in the mesenteric fat in the left upper quadrant, which may be result of the splenomegaly. Today this patient is feeling much better. We will continue with the same management for now pending Dr. Koroma's recommendation. 2. 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 Hematology/Oncology is following this patient. 3. History of hypertension, aware. 4. Lower gastrointestinal bleed. As per the patient, she has been having this kind of problem. Yesterday, she had a bowel movement and apparently she saw some blood on it. She states that she never had problems with this before, but after the chemotherapy and radiotherapy she started having some blood in the stool probably related to hemorrhoids. I will ask for gastroenterology evaluation. 5. Severe anemia. I will transfuse today 1 packet of red blood cells. 6. Hypokalemia. I will replace the potassium. 7. Gastroesophageal reflux disease. I will put this patient on pantoprazole. cc: Art Shah MD
[2016-11-20] MEDS: GRANIX SUBQ SCH (13:28)
--- NOTE | 2016-11-20 14:46 | CONSULTATION ---
DATE OF CONSULTATION: 11/20/2016 REASON FOR REFERRAL: Rectal bleeding, abdominal pain. HISTORY OF PRESENT ILLNESS: This is a 76-year-old, white female, who was diagnosed with B-cell lymphoma in June status post splenectomy. She has been following with Dr. Cindi Koroma for chemotherapy. Last chemotherapy treatment was on 11/12/2016. Patient states over the last several days she had been feeling increased fatigue, abdominal pain, some mild diarrhea versus constipation, and has noticed some blood when she wipes. She has also reported a fever. She had followed with Dr. Koroma and was admitted for neutropenia, pancytopenia. We were asked to see in consultation for her rectal bleeding. Patient states since her chemotherapy was started back in June she has had off and on issues with bright red blood when she wipes. She had reported some rectal pain and irritation. She does have some problems with constipation at times and she usually takes Colace 2 every day. She usually has a bowel movement daily. She complains of rectal irritation and soreness. From our records her last colonoscopy was in 2005 that showed colon polyps and hemorrhoids. PAST MEDICAL HISTORY: For B-cell lymphoma, hypertension, history of DVT, GERD, chronic anemia. PAST SURGICAL HISTORY: Splenectomy, back surgery, cataract surgery, right breast biopsy. ALLERGIES: To IV dye, causing a rash. HOME MEDICATIONS: 1. Xarelto 15 mg daily. 2. Potassium daily. 3. Magnolia 7.5 every 6 hours as needed. 4. Colace 100 mg twice daily. 5. Zofran 4 mg every hour 8 hours as needed. 6. Omeprazole 20 mg daily. 7. Zyrtec D daily. SOCIAL HISTORY: Lives with her . No reported tobacco or alcohol use. REVIEW OF SYSTEMS: Per HPI. PHYSICAL EXAMINATION: Vital Signs: Temperature 98.7 degrees, pulse 82, respiration 18, blood pressure 133/65. General: Patient is awake and alert, in no acute distress. HEENT: Normocephalic, atraumatic. Pupils equal, round, reactive to light. Sclerae nonicteric. Respiratory: Lung sounds essentially clear. Abdomen: Some pain in the epigastric area. She has a scar from splenectomy. DIAGNOSTIC RESULTS: Laboratory: Hematology; white count 0.63, hemoglobin 6.7, hematocrit 20.4, MCV 101.0, platelets 36,000. Chemistry; sodium 144, potassium 2.9, chloride 105, CO2 31, BUN 15, creatinine 0.6, glucose 104, total bilirubin 1.34, AST 12, ALT 13, alkaline phosphatase 75, total protein 5.5, albumin 3.1. ASSESSMENT: 1. Febrile neutropenia, following with Dr. Koroma. 2. Diffuse large B-cell lymphoma status post splenectomy. 3. Rectal bleeding. She has noticed blood when she wipes since her chemotherapy. She does have a history of hemorrhoids. She does report occasional constipation. Continue stool softeners. 4. Severe anemia. She is receiving packed red blood cells. PLAN: Continue supportive care. Continue to monitor H/H and monitor for active bleeding. Her last colonoscopy by our record was in 2005. She did have history of polyps and hemorrhoids. We will wait until her blood levels have improved before proceding with colonoscopy. It can be done as an oupatient unless needed urgently. I have discussed this case with Dr. Waller. Other plans will be made by him. We will continue to follow and further plans to be made as needed. Thank you for this consultation. Dictated by KANCHAN Oliver for Angelito Waller MD cc: KANCHAN Wilkins MD [facility]
[2016-11-21] MEDS: NS 1,000 ML IV SCH ×2 (01:09→13:49)
[2016-11-21] MEDS: MERREM 1 GM in NS 50 ML IV SCH ×3 (01:09→16:21)
[2016-11-21] MEDS: DUONEB (A & A) INH SCH ×6 (03:39→23:10)
[2016-11-21] MEDS ORDERED: VANCOMYCIN 1,200 MG in NS 250 ML IV ONE (06:00)
[2016-11-21] MEDS: PROTONIX PO SCH (06:15)
[2016-11-21 06:59] LABS: MCHC 33.3 g/dL (33-37); MPV 12.7 FL (7.4-10.4); RBC 2.5 XMIL (4.2-5.4)
[2016-11-21 07:48] LABS: AGAP 8; BUN 11 mg/dL (8-22); CALCIUM 7.9 mg/dL (8.8-10.2); CHLORIDE 107 mmol/L (98-107); COSMO 287; POTASSIUM 3.3 mmol/L (3.5-5.1); SODIUM 144 mmol/L (136-145); TCO2 29 mmol/L (25-35)
[2016-11-21] MEDS ORDERED: POTASSIUM CHLORIDE 40 MEQ/SWI 40 MEQ/100 ML IVPB IV ONE (08:10)
[2016-11-21] MEDS: MYCOSTATIN SUSP PO SCH ×2 (08:38→23:22)
[2016-11-21] MEDS: VANCOMYCIN 1,200 MG in NS 250 ML IV SCH (09:13)
[2016-11-21] MEDS: GRANIX SUBQ SCH (10:21)
[2016-11-21 12:41] LABS: BASO% 0.3 % (0.0-0.8); EOS# 0.02 X1000 (0.0-0.7); EOS% 0.5 % (0.0-10.0); HEMATOCRIT 24.4 % (37.0-47.0); HEMOGLOBIN 8.1 g/dL (12.0-16.0); LYMPH# 0.86 X1000 (1.2-3.4); LYMPH% 22.5 % (20.5-51.1); MANUAL DIFF NEEDED? YES; MCHC 33.2 g/dL (33-37); MCV 96.4 FL (81-99); MONO# 0.69 X1000 (0.11-0.59); MONO% 18.1 % (1.7-9.3); MPV 10.2 FL (7.4-10.4); NEUT% 58.6 % (42.2-75.2); PLT 79 X1000 (130-400); RBC 2.53 XMIL (4.2-5.4)
[2016-11-21 13:25] LABS: LYMPHS 34 % (21-51); MONO 10 % (1-9); NRBC 2 % (0-0)
--- NOTE | 2016-11-21 14:57 | PROGRESS NOTE ---
DATE: 11/21/2016 SUBJECTIVE: Patient states she does not feel well. She is tired and fatigued. She has received packed red blood cells and platelets. OBJECTIVE: Vital Signs: Temperature 98.6 degrees, pulse 95, respiration 14, blood pressure 158/64. LABORATORY: Hematology: White count 3.82, hemoglobin 8.1, hematocrit 24.4, MCV 96.4, platelets 79,000. Yesterday her platelets were 36. On admission her platelets were 6. Chemistry: Sodium 144, potassium 3.3, chloride 107, CO2 29, BUN 11, creatinine 0.6, glucose 111, calcium 7.9. ASSESSMENT AND PLAN: 1. B-cell lymphoma status post splenectomy, followed by Dr. Koroma. 2. Febrile neutropenia. Dr. Koroma has seen in the hospital. 3. Rectal bleeding. She reports having bleeding when she wipes off and on since her chemotherapy. She does have a history of hemorrhoids. Her last colonoscopy was in 2005 that showed polyps and hemorrhoids. 4. Anemia. She has received packed red blood cells and platelets. We will continue supportive care, monitor hemoglobin and hematocrit, monitor for active bleeding. Her last colonoscopy was in 2005 that showed colon polyps and hemorrhoids. She will need to have repeat colonoscopy when she is stable enough to go through colon preparation and sedation. This may need to be done as an outpatient. 5. We will continue to follow along in the hospital and further plans will be made as needed. I have discussed this case with Dr. Waller. Dictated by KANCHAN Oliver for Angelito Waller MD cc: KANCHAN Wilkins MD [facility]
--- NOTE | 2016-11-21 15:24 | PROGRESS NOTE ---
DATE: 11/21/2016 SUBJECTIVE: This patient states that she is feeling about the same. She is not complaining of any specific pain right now. She feels weak. Gastroenterology Department evaluated this patient. They are not going to do any kind of procedure at this moment since this patient's hemoglobin, hematocrit, and platelets are unstable. Probably, they will do everything as an outpatient. OBJECTIVE: Vital Signs: Temperature 98.6 degrees, pulse 88, respiratory rate 14, blood pressure 158/64, oxygen saturation 94% on room air. HEENT: Head normocephalic. No trauma. PERRLA. Neck supple. No JVD. No masses. Central trachea. Chest clear to auscultation. No wheezing. No rales. Abdomen: Mild pain at the level of the right upper and epigastric area. Extremities: No edema. No clubbing. No cyanosis. Neurologic: The patient is alert, oriented x3. No focal deficits. LABORATORY: WBC 2.2, hemoglobin 8, hematocrit 24, platelet 20,000. Sodium 144, potassium 3.3, chloride 107, bicarbonate 29. BUN 11, creatinine 0.6, glucose 111. Calcium 7.9. Magnesium 1.8. ASSESSMENT AND PLAN: 1. Febrile neutropenia. CT of the abdomen done 2 days ago showed splenomegaly, mild mesenteric panniculitis which apparently was stable, nonspecific inflammatory changes in the mesenteric fat in the left upper quadrant which may be the result of the splenomegaly. 2. 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 Hematology/Oncology is following this patient. I will continue following their recommendations. 3. History of hypertension, aware. Continue to monitor. 4. Lower gastrointestinal bleed likely related to hemorrhoids. Slip Tender on board. Once this patient is more stable, probably they will scope this patient as an outpatient. 5. Severe anemia. Hemoglobin and hematocrit are stable. Continue to monitor. 6. Thrombocytopenia. I will transfuse this patient today. 7. Hypokalemia. I will replace the potassium. 8. Gastroesophageal reflux disease. Continue with proton pump inhibitor. cc: Art Shah MD
--- NOTE | 2016-11-21 15:49 | PROGRESS NOTE ---
DATE: 11/21/2016 SUBJECTIVE: Ms. Fatima reports that she is having issues with sleeping. She reports this has been going on for some time. She is also reporting some burning in her feet. OBJECTIVE: Vital Signs: Temperature is 98.6 degrees, heart rate 95, respirations 16, blood pressure 158/64, O2 saturation is 94% on room air. LABORATORY STUDIES: White blood cells are 2.25. Hemoglobin is 8.1, platelet count 20,000. Sodium 144, potassium 3.3, chloride 107, CO2 is 29. BUN is 11, creatinine 0.6, glucose 111. PHYSICAL EXAMINATION: CV: S1-S2 heard. No murmurs, gallops, rubs appreciated. Regular rate and rhythm. Respiratory: Clear to auscultation. Gastrointestinal: Abdomen is soft , nontender, nondistended. Positive bowel sounds. Musculoskeletal: No bony abnormalities. Extremities: Pedal edema bilaterally. ASSESSMENT AND PLAN: 1. Neutropenic fever, improving. Afebrile since her admission, so for about 48 hours. The patient did not have a differential CBC ordered today. We will order the differential to see where her ANC count is. I will continue Granix as long as she continues to be neutropenic. Patient is no longer neutropenic. I will discontinue Granix. 2. Diffuse large B-cell lymphoma, status post 5 cycles R chop. 3. Thrombocytopenia. Patient is receiving platelets today. 4. Continue to monitor and transfuse p.r.n. 5. Hypokalemia. The patient is receiving repletion. Continue to monitor. 6. Insomnia, new problem. 7. Patient has a history of some depression/anxiety. She is not particularly interested in anything too strong. I talked with the patient and we trial a low dose of Ativan at night. Make alterations as needed. Dictated by DALILA Duncan for Cindi Koroma MD cc: Cindi Koroma MD I have seen and examined the patient and agree with above A/P MTDD
--- NOTE | 2016-11-21 16:24 | CONSULTATION ---
DATE OF CONSULTATION: 11/20/2016 REASON FOR CONSULTATION: Lymphoma, patient known. HISTORY OF PRESENT ILLNESS: Ms. Fatima is a 76-year-old female who is known to us as we are currently treating her for diffuse large B-cell lymphoma of the spleen. The patient was actually at our office on 11/19 for lab check. She presented with complaints of fever as well as cough and green sputum production. Labs were drawn and found the patient to be neutropenic with an ANC of 0.0. Patient also had a platelet count of 6000. The patient was admitted to the hospital at that time for further evaluation and treatment. The patient has most recently completed her 5th cycle of R-CHOP which was on 11/12/2016. She did receive Neulasta on 11/13/2016. PAST MEDICAL HISTORY: 1. Hypertension. 2. History of previous DVT in the postoperative setting in the lower extremity. 3. Gastroesophageal reflux disease. 4. History of hyperkalemia. 5. Anemia. SURGICAL HISTORY: 1. L5-S1 surgery 2013. 2. Splenectomy. 3. Cataract surgery. 4. Breast biopsy on the right several years ago. SOCIAL HISTORY: Patient lives with her . Her has dementia. She denies any alcohol, tobacco or illicit drug use. FAMILY HISTORY: She has is 1 sibling who of lymphoma at the age of 62. Another sibling that of melanoma at the age of 55. She also had a cousin that at the age of 18 with bone cancer and another one at 72 with colon cancer. REVIEW OF SYSTEMS: As per the HPI. All else is negative or noncontributory. PHYSICAL EXAMINATION: Vital Signs: Temperature 98.8 degrees, heart rate 92, respirations 18, blood pressure 112/62, O2 saturation 97% on room air. General: female lying in hospital bed in no acute distress. Family at bedside. Head: Normocephalic, atraumatic. Eyes: Pupils equal, round, reactive. Ears, nose, throat, neck, and mouth: Oral mucosa appears to be normal. Trachea is midline. Cardiovascular: S1-S2 heard. No murmurs, gallops , rubs appreciated. Respiratory: Some coarse breath sounds bilaterally, but essentially clear to auscultation. Normal respiratory effort. Abdomen: Soft, nontender, nondistended. Positive bowel sounds. Musculoskeletal: No bony abnormalities. Extremities: Patient has trace edema x4. Neurologic: Patient is alert and oriented x2. No focal or motor deficits. LABORATORY STUDIES: White blood cells 0.63, hemoglobin 6.7, hematocrit 20.4, platelets 36,000. Sodium 144, potassium 2.9, chloride 105, CO2 31, BUN 15, creatinine 0.6, glucose is 104. IMAGING: Chest x-ray has subsegmental atelectasis in the left lung base. CT of the abdomen and pelvis without contrast does not show any acute findings. ASSESSMENT AND PLAN: 1. Neutropenic fever. Continue broad-spectrum IV antibiotics. Patient is currently on neutropenic precautions which should be continued as well. We will go ahead and add Granix daily. Monitor closely for fever. 2. Diffuse large B-cell lymphoma. Patient is status post 5 cycles of R-CHOP. There are no plans for her to receive any further treatment. 3. Thrombocytopenia, severe. Secondary to chemotherapy. Patient is was transfused platelets yesterday. Continue to monitor and continue to transfuse as needed. 4. Anemia, profound. Also related to treatment. Patient will receive packed red blood cells today. Continue to monitor and transfuse p.r.n. 5. History of DVT. Xarelto is currently on hold due to the patient's platelet counts. Continue to monitor platelet count and consider reinitiating later in this hospitalization as able. 6. Hypokalemia. As already been repleted at this time. Continue to monitor and continue repletion p.r.n. We want to thank you for allowing us to participate in Ms. Fatima's care while she is here at [facility]. We will continue to follow along and adjust our treatment plan per her hospital course. Dictated by DALILA Duncan for Cindi Koroma MD cc: Cindi Koroma MD I have seen and examined the patient and agree with above A/P. MTDD
[2016-11-21] MEDS: ATIVAN PO SCH (23:22)
[2016-11-22] MEDS: MERREM 1 GM in NS 50 ML IV SCH ×3 (01:09→16:42)
[2016-11-22] MEDS: DUONEB (A & A) INH SCH ×6 (03:10→22:52)
[2016-11-22] MEDS: PROTONIX PO SCH (06:53)
[2016-11-22 07:30] LABS: BASO% 0.5 % (0.0-0.8); EOS# 0.02 X1000 (0.0-0.7); EOS% 0.2 % (0.0-10.0); HEMATOCRIT 24.6 % (37.0-47.0); HEMOGLOBIN 8.3 g/dL (12.0-16.0); IMM GRAN# 0.11 X1000 (0.0-0.04); IMM GRAN% 1.3 % (0.0-0.5); LYMPH% 9.5 % (20.5-51.1); MANUAL DIFF NEEDED? YES; MCH 32.7 PG (27-31); MCHC 33.7 g/dL (33-37); MCV 96.9 FL (81-99); MONO# 1.11 X1000 (0.11-0.59); MONO% 13.1 % (1.7-9.3); MPV 11.4 FL (7.4-10.4); NEUT% 75.4 % (42.2-75.2); PLT 44 X1000 (130-400); RBC 2.54 XMIL (4.2-5.4)
[2016-11-22 07:33] LABS: AGAP 7; BUN 7 mg/dL (8-22); CALCIUM 8.7 mg/dL (8.8-10.2); CHLORIDE 106 mmol/L (98-107); COSMO 281; POTASSIUM 3.8 mmol/L (3.5-5.1); SODIUM 142 mmol/L (136-145); TCO2 29 mmol/L (25-35)
[2016-11-22 07:56] LABS: BANDS 10 % (0-1); LYMPHS 8 % (21-51); MONO 4 % (1-9); NRBC 1 % (0-0)
[2016-11-22] MEDS: NS 1,000 ML IV SCH ×4 (08:30→20:03)
[2016-11-22] MEDS: MYCOSTATIN SUSP PO SCH ×2 (08:35→21:31)
--- NOTE | 2016-11-22 13:22 | PROGRESS NOTE ---
DATE: 11/22/2016 SUBJECTIVE: Patient reports that she feels "great." She slept well last night with the addition of Ativan. VITAL SIGNS: Afebrile since 11/19/2016. All other vital signs are stable. LABORATORY: White blood cells 8.46, hemoglobin 8.3, platelets 44,000. Sodium 3.8. The patient is doing quite well. As long as she remains afebrile and her lab counts are stable in the morning, we would agree for her to be discharged home. She will need to follow up with us as an outpatient. We can arrange for that appointment through our office. Please call with any questions or concerns. Dictated by DALILA Duncan for Cindi Koroma MD cc: Cindi Koroma MD
--- NOTE | 2016-11-22 14:48 | PROGRESS NOTE ---
DATE: 11/22/2016 SUBJECTIVE: This patient states that she is feeling much better. She slept during the night. Hematology Oncology department evaluated this patient and they state if this patient is about the same tomorrow and her lab work is acceptable she has she can be discharged. I will follow with them. OBJECTIVE: Vital Signs: Temperature 99 degrees, pulse 82, respiratory rate 14, blood pressure 145/50, O2 saturation 95% on room air. HEENT: Head normocephalic. No trauma. PERRLA. Neck: Supple. No JVD. No masses. Central trachea. Chest: Clear to auscultation. No wheezing. No rales. Abdomen: Soft, mild tenderness to palpation at the level of the epigastric area. Extremities: No edema. No clubbing. No cyanosis. Neurological: The patient is alert and oriented x3. No focal deficits. LABORATORY: WBC 8.4, hemoglobin 8.3, hematocrit 24.6, platelets 44,000. Sodium 142, potassium 3.8, chloride 106, bicarbonate 29. BUN 7, creatinine 0.6, glucose 100, calcium 8.7. ASSESSMENT AND PLAN: 1. Febrile neutropenia. This is getting much better, she is not longer neutropenic. Probably will discharge this patient tomorrow. 2. 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 Hematology Oncology is following this patient closely. I will continue following their recommendations. 3. History of hypertension. Aware. Continue to monitor. 4. Lower GI bleed likely related to hemorrhoids. Gastroenterology on board. Once the patient is more stable probably they will scope this patient as an outpatient. 5. Severe anemia. Hemoglobin and hematocrit have been stable. Continue to monitor. 6. Thrombocytopenia. This patient has been transfused multiple times. Today the platelets are normal. 7. Hypokalemia. Resolved. 8. GERD. Continue with PPIs. cc: Art Shah MD
[2016-11-22] MEDS: ATIVAN PO SCH (21:31)
[2016-11-22] MEDS: VANCOMYCIN 1,200 MG in NS 250 ML IV SCH (21:31)
[2016-11-23] MEDS: MERREM 1 GM in NS 50 ML IV SCH ×3 (01:36→17:27)
[2016-11-23] MEDS: DUONEB (A & A) INH SCH ×4 (03:57→16:06)
[2016-11-23] MEDS: PROTONIX PO SCH (06:24)
[2016-11-23 07:28] LABS: BASO% 0.3 % (0.0-0.8); EOS# 0.03 X1000 (0.0-0.7); EOS% 0.3 % (0.0-10.0); HEMATOCRIT 23.9 % (37.0-47.0); HEMOGLOBIN 7.9 g/dL (12.0-16.0); IMM GRAN# 0.25 X1000 (0.0-0.04); IMM GRAN% 2.5 % (0.0-0.5); LYMPH% 10.8 % (20.5-51.1); MANUAL DIFF NEEDED? YES; MCH 32.1 PG (27-31); MCHC 33.1 g/dL (33-37); MCV 97.2 FL (81-99); MONO# 1.21 X1000 (0.11-0.59); MONO% 11.9 % (1.7-9.3); MPV 11.8 FL (7.4-10.4); NEUT% 74.2 % (42.2-75.2); PLT 43 X1000 (130-400); RBC 2.46 XMIL (4.2-5.4)
[2016-11-23 07:45] LABS: BANDS 18 % (0-1); LYMPHS 16 % (21-51); MONO 10 % (1-9); NRBC 7 % (0-0)
[2016-11-23 07:51] LABS: AGAP 12; BUN 8 mg/dL (8-22); CALCIUM 8.3 mg/dL (8.8-10.2); CHLORIDE 106 mmol/L (98-107); COSMO 286; POTASSIUM 3.5 mmol/L (3.5-5.1); SODIUM 144 mmol/L (136-145); TCO2 26 mmol/L (25-35)
[2016-11-23] MEDS: NS 1,000 ML IV SCH ×2 (08:50→17:54)
[2016-11-23] MEDS: MYCOSTATIN SUSP PO SCH (08:50)
[2016-11-23 09:35] VITALS: BP 164/62
--- NOTE | 2016-11-23 12:42 | PROGRESS NOTE ---
DATE: 11/23/2016 SUBJECTIVE: The patient states she is feeling better. She is hoping to go home today. VITAL SIGNS: Temperature 98.9 degrees, pulse 96, respirations 16, blood pressure 164/62. LABORATORY: Hematology: White count 10.14, hemoglobin 7.9, hematocrit 23.9, MCV 97.2, platelets 43,000. Chemistry: Sodium 144, potassium 3.5, chloride 106, CO2 of 26. BUN 8, creatinine 0.6, glucose 111. ASSESSMENT AND PLAN: 1. Anemia. 2. Thrombocytopenia, improving. 3. B-cell lymphoma. 4. Rectal bleeding most likely related to hemorrhoids. She has not had any more bleeding over the last several days. We will continue to follow. Her last colonoscopy was in 2005 that showed colon polyps and hemorrhoids. She most likely will need a colonoscopy, but this can be done on an outpatient basis once she is more stable to go through colon preparation and procedure. I have given her an office card to call and make an appointment once she is discharged. Patient voices understanding. Dictated by KANCHAN Oliver for Angelito Waller MD cc: KANCHAN Wilkins MD
[2016-11-23] MEDS ORDERED: HEPARIN ONE (17:45)
--- NOTE | 2016-11-24 15:12 | DISCHARGE SUMMARY ---
ADMISSION DATE: 11/19/2016 DISCHARGE DATE: 11/23/2016 DISCHARGE DIAGNOSES: 1. Febrile neutropenia. 2. 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 3. History of hypertension. 4. Lower gastrointestinal bleed likely related to hemorrhoids. 5. Severe anemia. 6. Thrombocytopenia. 7. Hypokalemia/resolved. 8. Gastroesophageal reflux disease. CONSULTATIONS: 1. Gastroenterology Department Dr. Waller. 2. Hematology/Oncology Department Dr. Cindi Koroma. HOSPITAL COURSE: A 76-year-old, female with a history of diffuse B-cell lymphoma status post splenectomy in July 2016, hypertension, history of DVT, active chemotherapy, GERD, chronic anemia. Her last chemotherapy was on 11/12/2016. She presented to the emergency department and was admitted on 11/19/2016 secondary to worsening fatigue, abdominal pain, diarrhea with hematochezia and fever. She denies any nausea, vomiting. She was neutropenic, so she was admitted with a diagnosis of febrile neutropenia. This patient was placed on antibiotics. Hematology/oncology was consulted, as well as Gastroenterology Department. Gastroenterology Department followed this patient up closely and they believed that this kind of bleed was related to her hemorrhoids. At some point that has to be checked, but since she is hospitalized with neutropenia and has history of DVT with Xarelto, they just monitored the patient. She was doing better on a daily basis. Hematology/Oncology Department put this patient on Granix daily. This patient stopped having fever and since date of admission she has been always afebrile. So, this is why we decided to discharge this patient home with followup with home health and follow up by her primary care doctor and by Dr. Koroma. Gastroenterology Department talked to the patient and she received a card; she will need to call them to set up an appointment once she is better. OBJECTIVE: Vital Signs: Temperature 98.1 degrees, pulse 101, respiratory rate 18, blood pressure 167/51, oxygen saturation 95% on room air. HEENT: Head normocephalic. No trauma. PERRLA. Neck: Supple. No JVD. No masses. Central trachea. Chest: Clear to auscultation. No wheezing. No rales. Abdomen: Soft, nontender, nondistended. No hepatosplenomegaly. Cardiovascular: RRR. No murmurs. Mild tachycardia. Extremities: No edema. No clubbing. No cyanosis. Neurological examination: The patient is alert and oriented x3. No focal neurological deficits. LABORATORY: WBC 10.1, hemoglobin 7.9, hematocrit 23.9, platelets 43. Sodium 144, potassium 3.5, chloride 106, bicarbonate 26, BUN 8, creatinine 0.6, glucose 111, calcium 8.3, magnesium 1.8. DISCHARGE MEDICATIONS: 1. Xarelto 50 mg p.o. daily, but this patient will not be restarted on Xarelto right now. She is thrombocytopenic. She will need to set up an appointment with Dr. Koroma in 1 week, repeat lab work, and hopefully they can restart the Xarelto at that time. 2. Potassium chloride 20 mg p.o. daily. 3. Docusate 100 mg p.o. b.i.d. 4. Omeprazole 20 mg p.o. daily. 5. Cetirizine pseudoephedrine 1 tablet p.o. daily. 6. Ondansetron 4 mg p.o. q. 8 hours p.r.n. 7. Nystatin suspension 5 mL p.o. b.i.d. 8. Lorazepam 0.5 mg p.o. at bedtime. 9. [place] 7.5 one tablet p.o. q. 6 hours p.r.n. cc: Art Shah MD
== END 2016-11-23 18:16 | disposition home health service (06) ==
LOC: DIRADM 12:21 → SUATTDRO 12:21 → 3N 13:40
PROVIDERS: ATTEND Internal Medicine

== ENCOUNTER 2019-04-16 12:48 | Day surgery (SDC) ==
[~2019-04-16 12:48] MED LIST: COMPAZINE PO PRN; GOLYTELY PO ONE; TYLENOL PO PRN
[2019-04-16] MEDS ORDERED: COMPAZINE PO PRN (13:43)
[2019-04-16] MEDS ORDERED: TYLENOL PO PRN (13:43)
[2019-04-16] MEDS ORDERED: GOLYTELY PO ONE (13:44)
--- NOTE | 2019-04-16 14:36 | Diag Imaging Result Doc PS360 ---
EXAM: CT ABD/PELVIS W/ORAL CONT ONLY HISTORY: ABD. PAIN, CONSTIPATION TECHNIQUE: CT abdomen and pelvis without intravenous contrast COMPARISON: 10/28/2018 FINDINGS: Trace left pleural fluid. There are calcified subcarinal lymph nodes. The gallbladder has been removed. No focal hepatic abnormality identified on this noncontrasted study. The spleen has likely been removed. No inflammation about the pancreas. There are stable adrenal nodules/thickening. No aortic aneurysm. No renal stone. No hydronephrosis. Right renal nodules are unchanged and may be cysts. There is stool throughout the colon. There are scattered colonic diverticula. No bowel obstruction. No inflammation about the cecum. No abscess. Urinary bladder is distended and is normal. Normal uterus. IMPRESSION: 1.Cholecystectomy and splenectomy 2.Constipation 3.Colonic diverticulosis 4.Stable adrenal glands and kidneys This exam was performed using automated exposure control, adjustment of mA or kV according to patient size, and/or use of iterative reconstruction technique. Electronically signed by Ha Guan 04/16/2019 2:34 PM
[2019-04-16] MEDS ORDERED: PATIENT'S OWN MED PO SCH ×2 (15:30→19:30)
[2019-04-16] MEDS: PAXIL PO SCH (16:55)
[2019-04-16] MEDS: TAPAZOLE PO SCH (16:55)
[2019-04-16] MEDS: KLOR-CON PO SCH (16:56)
[2019-04-16] MEDS: ZOFRAN ODT PO SCH (16:56)
[2019-04-16] MEDS: VITAMIN D PO SCH (16:56)
[2019-04-16] MEDS: LEVAQUIN PO SCH (16:56)
[2019-04-16] MEDS: VITAMIN B-12 PO SCH (16:56)
[2019-04-16] MEDS ORDERED: TYLENOL PO ONE (20:17)
[2019-04-16] MEDS ORDERED: BENADRYL PO ONE (20:19)
[2019-04-16] MEDS: ZYLOPRIM PO SCH (20:57)
[2019-04-16] MEDS: ZOVIRAX PO SCH (20:58)
[2019-04-16] MEDS ORDERED: REMERON PO SCH (21:00)
[2019-04-16] MEDS: NS 500 ML IV SCH (21:03)
[2019-04-17] MEDS ORDERED: GOLYTELY PO ONE (04:00)
[2019-04-17 07:24] VITALS: BP 109/49
[2019-04-17] MEDS: ZOVIRAX PO SCH (11:20)
[2019-04-17] MEDS: VITAMIN D PO SCH (11:20)
[2019-04-17] MEDS: KLOR-CON PO SCH (11:20)
[2019-04-17] MEDS: ZYLOPRIM PO SCH (11:20)
[2019-04-17] MEDS: PAXIL PO SCH (11:21)
[2019-04-17] MEDS: VITAMIN B-12 PO SCH (11:21)
[2019-04-17] MEDS: ZOFRAN ODT PO SCH (11:21)
[2019-04-17] MEDS: TAPAZOLE PO SCH (11:21)
[2019-04-17] MEDS: LEVAQUIN PO SCH (11:22)
[2019-04-17] MEDS: NS 500 ML IV SCH (11:22)
== END 2019-04-17 11:45 | disposition home or self-care (01) ==
LOC: P.MEDSURG 12:48 → OPS 12:48 → INTOOBSV 12:48 → OPS 04-17 11:45
PROVIDERS: ATTEND Internal Medicine

== ENCOUNTER 2019-05-07 11:20 | Inpatient (IN) ==
--- NOTE | 2019-05-07 12:33 | Diag Imaging Result Doc PS360 ---
EXAM: CT HEAD/C-SPINE W/O CONTRAST INDICATION: fall/head injury TECHNIQUE: This exam was performed using automated exposure control, adjustment of mA or kV according to patient size, and/or use of iterative reconstruction technique. COMPARISON: CT head dated 04/25/2016 FINDINGS: Head: There is patchy low attenuation in the periventricular and subcortical white matter suggesting advanced microangiopathy. However, it is approximately stable. There is no definite acute infarct given the limited sensitivity of CT versus MRI. There is right maxillary, right ethmoid, and milder left ethmoid and left sphenoid sinus mucosal thickening suggesting sinusitis. The surrounding soft tissues are essentially unremarkable, otherwise. The calvaria is intact. C-spine: There is multilevel mild to moderate degenerative disc disease throughout the cervical spine with small marginal osteophyte formation and loss of disc space height. This is causing varying degrees of mild and moderate central canal and neuroforaminal narrowing at several levels. Otherwise, there is no discrete fracture, subluxation, or intrinsic osseous lesion. The surrounding soft tissues are essentially unremarkable. IMPRESSION: 1.Stable extensive chronic white matter changes but no evidence of acute intracranial pathology. 2.Multilevel degenerative arthropathy as described. No evidence of fracture or other definite acute C-spine injury. Electronically signed by Milton Scanlon 05/07/2019 12:31 PM
--- NOTE | 2019-05-07 12:35 | Diag Imaging Result Doc PS360 ---
EXAM: CHEST-1 VIEW HISTORY: possible sepsis TECHNIQUE: Single view COMPARISON: 01/30/2019 FINDINGS: The lungs are well expanded. The heart is not enlarged. There is a left-sided PICC line. Tip overlies the mid to distal superior vena cava. The vessels are not distended. There are no infiltrates. No effusion identified. IMPRESSION: No pneumonia Electronically signed by Ha Guan 05/07/2019 12:33 PM
[2019-05-07 12:39] LABS: INR 1.14; PROTIME 14.8 Seconds (11.0-16.0)
[2019-05-07 12:40] LABS: PTT 38.9 Seconds (22.3-41.8)
[2019-05-07] MEDS ORDERED: VANCOMYCIN 1 GM/NS 1 GM/250 ML IVPB IV ONE (12:44)
[2019-05-07] MEDS ORDERED: TAZIDIME 1 GM in NS 50 ML IV ONE (12:44)
[2019-05-07] MEDS ORDERED: NS 1,000 ML IV ONE ×2 (12:44→15:47)
[2019-05-07] MEDS ORDERED: DIFLUCAN 400 MG/NS 400 MG/200 ML IVPB IV ONE (12:45)
[2019-05-07 13:04] LABS: HEMATOCRIT 24.7 % (37.0-47.0); HEMOGLOBIN 7.9 g/dL (12.0-16.0); LYMPH# 0.16 X1000 (1.2-3.4); LYMPH% 94.1 % (20.5-51.1); MCH 26.8 PG (27-31); MCV 83.7 FL (81-99); NEUT# 0.01 X1000 (1.4-6.5); NEUT% 5.9 % (42.2-75.2); PLT 16 X1000 (130-400); RBC 2.95 XMIL (4.2-5.4); RDW 15.3 % (11.5-14.5); WBC < 0.20 X1000 (4.8-10.8)
[2019-05-07 13:22] LABS: LYMPHS 100 % (21-51)
[2019-05-07 13:23] LABS: HYPOCHROM 1+; POIKILOCYTOSIS 1+
[2019-05-07 13:42] LABS: ALB/GLOB RATIO 1.2; CALCIUM 8.9 mg/dL (8.8-10.2); CREATININE 0.9 mg/dL (0.5-0.9); TOTAL BILIRUBIN 0.55 mg/dL (0.20-1.00); TOTAL PROTEIN 5.6 g/dL (6.3-8.3)
--- NOTE | 2019-05-07 14:52 | PROVIDER DOCUMENTATION ---
This chart was entered by Jess Francisco Scribe, acting as scribe for Boris Ro MD. HPI-Head Injury - General Chief Complaint: Head Injury Stated Complaint: fall/ head injury Time Seen by Provider: 05/07/19 12:12 Source: patient, family (sister) Allergies/Adverse Reactions: Patient Allergies Allergy/AdvReac Type Severity Reaction Status Date / Time Iodinated Contrast Media Allergy RASH Verified 05/07/19 12:08 [IV Dye] Home Medications: Home Medication List Medication Instructions Recorded Confirmed Last Taken Type Cholecalciferol (Vitamin D3) 5,000 units PO DAILY 05/01/18 05/07/19 05/07/19 History [Vitamin D3] Ondansetron [Zofran] 8 mg PO TID 03/24/19 05/07/19 05/06/19 History Allopurinol [Zyloprim] 1 tab PO BID 04/16/19 05/07/19 05/07/19 History Levofloxacin 1 tab PO DAILY 04/16/19 05/07/19 05/07/19 History Methimazole [Tapazole] 1.5 tab PO DAILY 04/16/19 05/07/19 05/07/19 History Mirtazapine [Remeron] 30 mg PO HS 04/16/19 05/07/19 Unknown History Paroxetine [Paxil] 20 mg PO DAILY 04/16/19 05/07/19 05/07/19 History Potassium Chloride 1 tab PO DAILY 04/16/19 05/07/19 05/07/19 History Prochlorperazine [Compazine] 10 mg PO TID PRN PRN 04/16/19 05/07/19 Unknown History Venetoclax [Venclexta] 4 tab PO DAILY 04/16/19 05/07/19 05/07/19 History - History of Present Illness-Head Injury Nature of Presenting Problem: Patient is a 78 year old female who presents to the ED after having a head injury. Sister states patient fell last night hitting the right side of her face. Sister reports patient does not know why she fell. History of acute leukemia and receives chemo. Last chemo was May 01. Denies abdominal pain, nausea, and vomiting. Sister states patient is currently on Levaquin to prevent infection of PICC line. Head Injury Location: reports: other (right side face) Quality of Pain: reports: aching Severity: reports: mild Onset/Duration: reports: last night Timing: reports: still present Method of Injury: reports: fell Locality of Occurance: Home Similar Symptoms Previously?: Yes Recently seen or treated by another doctor?: Yes Review of Systems - Adult - REVIEW OF SYSTEMS - ADULT Constitutional: reports: no symptoms reported Eyes: reports: no symptoms reported Ears, Nose, Mouth & Throat: reports: no symptoms reported Cardiovascular: reports: no symptoms reported Respiratory: reports: no symptoms reported Gastrointestinal: reports: no symptoms reported. denies: abdominal pain, nausea, vomiting Genitourinary: reports: no symptoms reported Musculoskeletal: reports: no symptoms reported Integumentary: reports: no symptoms reported Neurological: reports: see HPI, other (head injury). denies: headache/migraines Psychiatric: reports: no symptoms reported Endocrine: reports: no symptoms reported Hematologic/Lymphatic: reports: no symptoms reported Allergic/Immunologic: reports: no symptoms reported All Other Systems: Reviewed and Negative Past History - Adult - PAST MEDICAL HISTORY-ADULT Review of Records: reports: Old Records Reviewed, Nursing Assessment Review, Medications Reviewed, Social history reviewed & non-contributory. Major Childhood Illnesses: reports: denies history Cardiovascular: reports: HTN Respiratory: reports: denies history Gastrointestinal: reports: denies history Obstetrical/Gynecological: reports: denies history Genitourinary: reports: denies history Musculoskeletal: reports: denies history Neurological: reports: denies history Endocrine/Immune: reports: cancer, thyroid disorder Other Conditions: reports: denies history - PRIOR SURGERIES/PROCEDURES Surgical/Procedure History: reports: reviewed, not pertinent, cholecystectomy - IMMUNIZATION STATUS Childhood Immunizations: See Nurse Assessment Flu Vaccine: See Nurse Assessment - FAMILY HISTORY Family History: reviewed, not pertinent - SOCIAL HISTORY Smoking: denies Substance Use: denies Physical Exam- Neurological - Physical Exam-Neuro Initial Vital Signs Reviewed: Yes General Appearance: alert, no apparent distress. negative: lethargic HENMT: dental decay, other (thrush present to tongue. dry mucous membranes). negative: moist mucous membranes, angioedema Head Injury: no evidence of injury. negative: active bleeding, ecchymosis, lacerations Respiratory: chest non-tender, lungs clear, normal breath sounds. negative: crackles, stridor, wheezing Cardiovascular: tachycardia. negative: regular rate, rhythm, systolic murmur Abdominal Exam: normal bowel sounds, non tender, soft. negative: rigid Extremity: non-tender, other (PICC line present to left medial upper arm). 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 negative: facial droop Neurologic: grossly normal. negative: aphasia, facial droop Integumentary: normal color, normal turgor, warm/dry. negative: ecchymosis, laceration(s) Psych/Mental Status: normal mood/affect, oriented x 3. negative: anxious Progress - PLAN OF CARE/RESULTS Progress/Plan/Lab Results: Vital Signs - 8 hr 05/07/19 11:24 Temperature 98.9 F Pulse Rate 121 H Respiratory Rate 22 Blood Pressure 108/53 O2 Sat by Pulse Oximetry 99 05/07/19 12:58 Influenza Screen - Final Nasopharyngeal 05/07/19 12:56 Group A Strep Rapid Antigen - Final Throat Laboratory Results - last 24 hr 05/07/19 05/07/19 05/07/19 12:20 12:20 12:20 WBC < 0.20 L RBC 2.95 L Hgb 7.9 L Hct 24.7 L MCV 83.7 MCH 26.8 L MCHC 32.0 L RDW Std Deviation 15.3 H Plt Count 16 L* MPV Not Reportable Immature Gran % (Auto) 0.0 Neut % (Auto) 5.9 L Lymph % (Auto) 94.1 H Person % (Auto) 0.0 L Eos % (Auto) 0.0 Baso % (Auto) 0.0 Immature Gran # (Auto) 0.00 Neut # (Auto) 0.01 L* Lymph # (Auto) 0.16 L Person # (Auto) 0.00 L Eos # (Auto) 0.00 Baso # (Auto) 0.00 Segmented Neutrophils Not Reportable Lymphocytes 100 H Hypochromia 1+ Poikilocytosis 1+ PT INR PTT (Actin FS) Sodium 139 Potassium 4.0 Chloride 98 Carbon Dioxide 25 Anion Gap 16 BUN 24 H Creatinine 0.9 Estimated GFR/1.73 m2 60 BUN/Creatinine Ratio 27 Glucose 224 H Calculated Osmolality 289 Calcium 8.9 Total Bilirubin 0.55 AST 12 ALT 13 Alkaline Phosphatase 142 H Creatine Kinase 18 L Troponin T Total Protein 5.6 L Albumin 3.0 L Globulin 2.6 Albumin/Globulin Ratio 1.2 Plasma Lactate 1.9 05/07/19 05/07/19 12:20 12:20 WBC RBC Hgb Hct MCV MCH MCHC RDW Std Deviation Plt Count MPV Immature Gran % (Auto) Neut % (Auto) Lymph % (Auto) Person % (Auto) Eos % (Auto) Baso % (Auto) Immature Gran # (Auto) Neut # (Auto) Lymph # (Auto) Person # (Auto) Eos # (Auto) Baso # (Auto) Segmented Neutrophils Lymphocytes Hypochromia Poikilocytosis PT 14.8 INR 1.14 PTT (Actin FS) 38.9 Sodium Potassium Chloride Carbon Dioxide Anion Gap BUN Creatinine Estimated GFR/1.73 m2 BUN/Creatinine Ratio Glucose Calculated Osmolality Calcium Total Bilirubin AST ALT Alkaline Phosphatase Creatine Kinase Troponin T 0.028 Total Protein Albumin Globulin Albumin/Globulin Ratio Plasma Lactate Orders Category Date Time Status Cardiac Monitoring DIRECTED Care 05/07/19 11:29 Active IV Insertion ORDERED Care 05/07/19 11:29 Active Notify MD of + Sepsis Screen NOW Care 05/07/19 11:29 Active Notify Physician As Ordered Care 05/07/19 11:29 Active CHEST-1 VIEW [RAD] Stat Exams 05/07/19 11:[address] HEAD/C-SPINE W/O CONTRAST [CT] Stat Exams 05/07/19 11:42 Completed BLOOD CULTURE [BLDCUL] Stat Lab 05/07/19 12:55 Received CBC WITH DIFF [HEME] Stat Lab 05/07/19 12:20 Completed CK PROFILE [SP CHEM] Stat Lab 05/07/19 12:20 Completed COMPREHENSIVE METABOLIC PANEL [CHEM] Stat Lab 05/07/19 12:20 Completed DIRECT STREP Stat Lab 05/07/19 12:56 Completed INFLUENZA SCREEN A/B Stat Lab 05/07/19 12:58 Completed LACTATE, PLASMA [CHEM] Lab 05/07/19 14:30 Uncollected LACTATE, PLASMA [CHEM] Lab 05/07/19 17:30 Uncollected LACTATE, PLASMA [CHEM] Q3H Lab 05/07/19 12:20 Completed PROTIME WITH INR [COAG] Stat Lab 05/07/19 12:20 Completed PTT [COAG] Stat Lab 05/07/19 12:20 Completed TROPONIN T Stat Lab 05/07/19 12:20 Completed URINALYSIS W/POSS RFLX CULT [URINALYSIS] Stat Lab 05/07/19 11:29 Uncollected 0.9% Sodium Chloride Inj [Ns] 1,000 ml Med 05/07/19 12:44 Discontinued IV 999 mls/hr CefTAZIDIME [Tazidime] 1 gm Med 05/07/19 12:44 Discontinued 0.9% Sodium Chloride Inj [Ns] 50 ml IV NOW Fluconazole 400 mg/Ns [Diflucan 400 mg/Ns] Med 05/07/19 12:45 Discontinued 400 mg in 200 ml IV NOW Vancomycin 1 gm/Ns Med 05/07/19 12:44 Discontinued 1 gm in 250 ml IV NOW Oxygen Device Stat Oth 05/07/19 11:29 Active Result Diagrams: 05/07/19 12:20 05/07/19 12:20 - REASSESSMENT Reassessment #1 Time Reassessed: 14:45 Status: improving (States feels better after IVF. Patient with neutopenia, weakness, and 2 SIRS criteria with thrush and a sore throat. Will treat for sepsis in neutropenic patient with Vanc/Fortaz and add Fulconazole d/t thrush) - XRAY 1 XRAY Study: Chest Impression: See EMR Report (Signed EXAM: CHEST-1 VIEW HISTORY: possible sepsis TECHNIQUE: Single view COMPARISON: 01/30/2019 FINDINGS: The lungs are well expanded. The heart is not enlarged. There is a left-sided PICC line. Tip overlies the mid to distal superior vena cava. The vessels are not distended. There are no infiltrates. No effusion identified. IMPRESSION: No pneumonia Electronically signed by Ha Guan 05/07/2019 12:33 PM 05/07/19 1233 Interpreting Physician: Ha Guan MD Dictated Date/Time: 05/07/19 1232 cc: Boris Ro MD; None,PCP) - CT/MRI 1 CT Study: Cervical Spine, Head Impression: See EMR Report (Signed EXAM: CT HEAD/C-SPINE W/O CONTRAST INDICATION: fall/head injury TECHNIQUE: This exam was performed using automated exposure control, adjustment of mA or kV according to patient size, and/or use of iterative reconstruction technique. COMPARISON: CT head dated 04/25/2016 FINDINGS: Head: There is patchy low attenuation in the periventricular and subcortical white matter suggesting advanced microangiopathy. However, it is approximately stable. There is no definite acute infarct given the limited sensitivity of CT versus MRI. There is right maxillary, right ethmoid, and milder left ethmoid and left sphenoid sinus mucosal thickening suggesting sinusitis. The surrounding soft tissues are essentially unremarkable, otherwise. The calvaria is intact. C-spine: There is multilevel mild to moderate degenerative disc disease throughout the cervical spine with small marginal osteophyte formation and loss of disc space height. This is causing varying degrees of mild and moderate central canal and neuroforaminal narrowing at several levels. Otherwise, there is no discrete fracture, subluxation, or intrinsic osseous lesion. The surrounding soft tissues are essentially unremarkable. IMPRESSION: 1.Stable extensive chronic white matter changes but no evidence of acute intracranial pathology. 2.Multilevel degenerative arthropathy as described. No evidence of fracture or other definite acute C-spine injury. Electronically signed by Milton Scanlon 05/07/2019 12:31 PM 05/07/19 1231 Interpreting Physician: Milton Scanlon MD Dictated Date/Time: 05/07/19 1224 cc: Boris Ro MD; None,PCP) - CONSULTS/PCP/HOSPITALIST Notification #1 *Consult/PCP/Hospitalist*: KANCHAN Mckee for Hospitalist paged [phone] Time Discussed: 14:43 Reason/Comments: Dr. Ro consulted with Rylee about patient Consult Disposition: Will see in ED, Admit Departure - Departure Date of Disposition Decision: 05/07/19 Time of Disposition Decision: 14:44 DIAGNOSIS: Malignant neutropenia, Weakness, Thrush of mouth and esophagus, Subacute leukemia Sepsis without acute organ dysfunction Qualifiers: Sepsis type: sepsis due to unspecified organism Qualified Code(s): A41.9 - Sepsis, unspecified organism Disposition: ADMITTED INPATIENT 09 Certified Medical Emergency: Emergent Condition: Fair Referrals and Follow-Ups: None,PCP [Primary Care Provider] - - Critical Care Note This patient required my direct & personal management of CC.: Yes Total Time (mins): 40 Critical Care Statement: This patient required my direct personal management to treat or rule out processes, the absence of which, could potentiallly result in sudden, clinically significant life or limb threatening deterioration. Attestation - Physician/ EMILY Attestation Patient care was provided by Advanced Practice Provider:: No The physician spent face to face time with patient:: Yes Advanced Practice Provider documentation review:: Supervising physician onsite and consulted in the evaluation and care of this patient. The physician did have a face to face encounter with the patient. This chart was documented by the indicated scribe, (Jess Francisco Scribe) and accurately reflects the services I performed and decisions made by me, Boris Ro MD, as attested by the provider's signature.
[2019-05-07] MEDS ORDERED: COMPAZINE PO PRN (15:00)
[2019-05-07] MEDS ORDERED: VANCOMYCIN IV PER PHARMACY MISC SCH (15:00)
[2019-05-07] MEDS ORDERED: NS 500 ML IV ONE (15:07)
[2019-05-07] MEDS: MYCELEX TROCHE PO SCH ×3 (16:28→20:08)
[2019-05-07] MEDS: TYLENOL PO PRN ×2 (17:20→22:45)
[2019-05-07] MEDS: PROTONIX IV SCH (20:07)
[2019-05-07] MEDS: MAXIPIME 2 GM/NS 2 GM/100 ML IVPB IV SCH (20:07)
[2019-05-07] MEDS: REMERON PO SCH (20:08)
[2019-05-07] MEDS: ZYLOPRIM PO SCH (20:08)
--- NOTE | 2019-05-07 21:32 | HISTORY AND PHYSICAL ---
CHIEF COMPLAINT: Fall, head injury. HISTORY OF PRESENT ILLNESS: This is a 78-year-old female with a history of diffuse B-cell lymphoma, hypertension and gastroesophageal reflux disease. She is on active chemotherapy. presents to the emergency room with her sister. They state that the patient fell last night, hitting the right side of her face. She does not know why she fell. She was just walking across the floor and fell. She denied any loss of consciousness, any seizure activity, any vomiting, any loss of bowel or bladder control. She does report some aching to the right side of her face. She has had no change in vision. No nausea or vomiting. CT of the head and cervical spine revealed stable extensive chronic white matter changes but no evidence of acute pathology and no definite evidence of fracture or acute C-spine injury. PAST MEDICAL HISTORY: 1. Diffuse B-cell lymphoma. 2. Gastroesophageal reflux disease. 3. Hypertension. 4. Pancytopenia, chronic. PAST SURGICAL HISTORY: Splenectomy, back surgery, cataract surgery, right breast biopsy. SOCIAL HISTORY: She lives with her daughter. She denies alcohol, tobacco, or illicit drug use. FAMILY HISTORY: Positive for hypertension and coronary artery disease. ALLERGIES: Iodinated contrast media, which gives a rash. HOME MEDICATIONS: A list will be obtained by the nursing staff, and once verified, we will review and restart as appropriate. REVIEW OF SYSTEMS: Discussed with patient with pertinent positives stated in the HPI. She denied any syncope or dizziness any chest pain or palpitations, shortness of breath, cough, fevers, chills, any generalized body aches, any nausea, vomiting, diarrhea, constipation, black or bloody vomitus or stools, any hematuria, dysuria, frequency, urgency. PHYSICAL EXAMINATION: GENERAL: This is a 78-year-old female who is lying on the stretcher in the emergency room in no distress. VITAL SIGNS: Blood pressure is 108/53 with a heart rate of 121, respirations are 20, temperature is 98.9 degrees with room air saturations 99%. EYES: Pupils equal, round, react to light. EOMs are intact. Sclerae are anicteric. HEENT: Head is normocephalic, atraumatic. Mucous membranes are dry. Radha is noted to her mouth and throat. NECK: Supple with trachea midline. CARDIOVASCULAR: Regular rate and rhythm. S1 and S2 appreciated. She has no lower extremity edema. Calves are nontender with peripheral pulses palpable x4 extremities. PULMONARY: Breath sounds are clear with no increased work of breathing noted. Chest rises and falls symmetric with respiration. Chest wall is nontender to palpation. GASTROINTESTINAL: Abdomen is soft, nontender, nondistended with bowel sounds in all 4 quadrants. GENITOURINARY: No CVA or suprapubic tenderness. NEUROLOGIC: She is alert and oriented x3. SKIN: Warm and dry. LABORATORY DATA: WBC is less than 0.20, with a hemoglobin of 7.9, hematocrit 24.7, and platelets of 16,000. Neutrophil percent is 5.9. INR is 1.14. Sodium 139, potassium 4, BUN 24, creatinine 0.9 with a glucose of 224. CT of the head and C-spine as stated above. IMAGING: Chest x-ray: No pneumonia. There is a left-sided PICC line. ASSESSMENT AND PLAN: 1. Sepsis. Blood and urine cultures have been obtained. Will start IV fluids and broad spectrum antibiotics. The chest x ray is unremarkable. Will order a CT of the chest, abdomen and pelvis. 2. Neutopenic fever. The patient will be started on neutropenic precautions and broad spectrum antibiotics. Will consult and . 3. Pancytopenia. We will type and cross and give a unit of packed cells, a unit of platelets and recheck labs in the morning. 4. Oral candidiasis. The patient was given 400 mg of Diflucan in the emergency room. We will continue with 200mg IV daily. Add Mycelex troches 5 times a day. 5. AML. Aware. 6. B-cell lymphoma. She is followed by Dr. Cindi Koroma. I did speak with Dr. Koroma. We will hold her Venetoclax, and Dr. Koroma will follow while in the hospital. 7. Gastroesophageal reflux disease. Protonix IV. 8. Further treatments pending hospital course. Patient was discussed with Dr. Keating. Dictated by KANCHAN Senior for Sapphire Keating MD cc: KANCHAN Senior MD I performed a face to face encounter on the patient. I reviewed all labs and imaging on the patient. I agree with the H&P as dictated. is a 78 year old female with a history of AML and B cell lymphoma who presented to the hospital with a complaint of fever. In the ER, the patient was noted to be alert and oriented x 4. Her heart sounds were regular. Her lungs were diminished in the bases. The patient is currently neutropenic with an ANC of 0. The patient will be admitted with a diagnosis of sepsis and neutropenic fever. The initial chest x ray is negative so a CT of the chest, abdomen and pelvis will be ordered to find a source of infection. Blood, urine and sputum cultures will be obtained and the patient will be started on broad spectrum antibiotics, IV fluids, and neutropenic precautions. Will consult oncology and ID for further assistance. FANY
[2019-05-07] MEDS: NS 1,000 ML IV SCH (22:45)
[2019-05-08 00:34] LABS: URINE SOURCE CLEAN CATCH
[2019-05-08 00:36] LABS: BILIRUBIN URINE NEGATIVE (NEGATIVE); BLOOD URINE NEGATIVE (NEGATIVE); COLOR YELLOW; GLUCOSE URINE NEGATIVE (NEGATIVE); KETONE URINE NEGATIVE (NEGATIVE); LEUKOCYTES URINE NEGATIVE (NEGATIVE); NITRITE URINE NEGATIVE (NEGATIVE); PH URINE 6.5; PROTEIN URINE 30 mg/dL (NEGATIVE); SP GRAVITY URINE 1.024; TURBIDITY URINE CLEAR (CLEAR); UR EPITHELIAL CELLS <10 /HPF (<10); URINE BACTERIA NEGATIVE /HPF; URINE RBC <10 /HPF (<10); URINE WBC <10 /HPF (<10); UROBILINOGEN URINE NORMAL (NORMAL)
[2019-05-08 07:01] LABS: HEMATOCRIT 21.8 % (37.0-47.0); HEMOGLOBIN 7.2 g/dL (12.0-16.0); MCH 27.8 PG (27-31); MCV 84.2 FL (81-99); MPV 9.7 FL (7.4-10.4); PLT 105 X1000 (130-400); RBC 2.59 XMIL (4.2-5.4); RDW 14.7 % (11.5-14.5)
[2019-05-08 07:08] LABS: AGAP 11; BUN 17 mg/dL (8-22); CALCIUM 8.2 mg/dL (8.8-10.2); CHLORIDE 104 mmol/L (98-107); COSMO 278; CREATININE 0.7 mg/dL (0.5-0.9); ESTIMATED GFR > 60; GLUCOSE 113 mg/dL (70-104); POTASSIUM 3.8 mmol/L (3.5-5.1); SODIUM 138 mmol/L (136-145); TCO2 23 mmol/L (25-35)
[2019-05-08] MEDS: MAXIPIME 2 GM/NS 2 GM/100 ML IVPB IV SCH ×2 (08:44→20:05)
[2019-05-08] MEDS: PAXIL PO SCH (08:45)
[2019-05-08] MEDS: MYCELEX TROCHE PO SCH ×5 (08:45→20:07)
[2019-05-08] MEDS: ZYLOPRIM PO SCH ×2 (08:45→20:07)
[2019-05-08] MEDS: TAPAZOLE PO SCH (08:45)
[2019-05-08 08:46] LABS: HEMATOCRIT 22.6 % (37.0-47.0); HEMOGLOBIN 7.4 g/dL (12.0-16.0)
[2019-05-08] MEDS: VITAMIN D PO SCH (08:46)
[2019-05-08] MEDS: TYLENOL PO PRN ×2 (08:47→16:34)
[2019-05-08] MEDS ORDERED: KLOR-CON PO SCH (09:00)
[2019-05-08] MEDS: NS 1,000 ML IV SCH ×2 (11:09→13:18)
--- NOTE | 2019-05-08 12:02 | Diag Imaging Result Doc PS360 ---
EXAM: CT THORAX W/O CONTRAST 05/08/2019 HISTORY: pneumonia TECHNIQUE: This exam was performed using automated exposure control, adjustment of mA or kV according to patient size, and/or use of iterative reconstruction technique. COMMENT: There are no previous thoracic studies available for comparison. There is bilateral pleural fluid. There is some consolidation with air bronchograms in the left lower lobe. There are patchy opacities in the posterior costophrenic sulcus of the right lower lobe. There are subcarinal and left hilar calcified nodes. The CT density in the aorta is less than 32 Hounsfield units suggesting the possibility of anemia. The regional skeleton appears to be intact. IMPRESSION: Bronchopneumonia. Bilateral pleural effusions more so on the left than the right. Possible anemia. Electronically signed by Brian Hidalgo 05/08/2019 11:59 AM
--- NOTE | 2019-05-08 12:04 | Diag Imaging Result Doc PS360 ---
EXAM: CT ABD/PELVIS W/ORAL CONT ONLY 05/08/2019 HISTORY: neutropenic fever TECHNIQUE: This exam was performed using automated exposure control, adjustment of mA or kV according to patient size, and/or use of iterative reconstruction technique. COMMENT: The findings in the chest have been previously described. This is worse than on the previous abdominal study of 04/16/2019. There is a fairly large amount of stool present in the colon. The small bowel is not distended. There is no evidence of hydronephrosis. There are apparent cortical cysts bilaterally. No stones are demonstrated. There has been previous cholecystectomy. The aorta is not distended. There is no significant adenopathy. Pelvis: The appendix is not distended. There is diverticulosis in the sigmoid colon without evidence of diverticulitis. There is a fairly large amount of stool present in the rectum. The urinary bladder is not distended. There is no evidence of free fluid. There are no masses and there is no significant adenopathy. The regional skeleton is intact. IMPRESSION: Worsened pleural effusions and left lower lobe atelectasis versus pneumonia. Constipation. Electronically signed by Brian Hidalgo 05/08/2019 12:02 PM
[2019-05-08] MEDS: GRANIX SUBQ SCH (14:54)
[2019-05-08] MEDS: DIFLUCAN 200 MG/NS 200 MG/100 ML IVPB IV SCH (14:55)
--- NOTE | 2019-05-08 19:35 | INFECTIOUS DISEASE CONSULT REP ---
DATE: 05/08/2019 CONCLUSION: I agree with Dr. Keating the patient has neutropenic fever. Patient also has oral candidiasis. RECOMMENDATIONS: I agree with giving the patient vancomycin, cefepime and fluconazole. DISCUSSION: The patient has developed acute leukemia and she was admitted to the hospital. She was weak, febrile, anorectic and she had not had a bowel movement either. The laboratory studies thus far show a CBC with a white count of 200, hemoglobin 7.4, and platelet count 105,000. Creatinine is 0.7. GFR is greater than 60. Urinalysis showed no white cells or bacteria. Swab for influenza was negative. Blood and urine cultures are pending. CT scan of the chest showed no pneumonia. CT scan of the head showed white matter changes. PAST MEDICAL HISTORY/REVIEW OF SYSTEMS: Eyes and ears: Vision and hearing are good. Neck: No stiffness. Respiratory: No cough or shortness of breath. Cardiac: No chest pain or palpitations. GI: No nausea, vomiting, or diarrhea. : No dysuria. Neurologic: No seizures. The patient has generalized weakness. 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 PREVIOUS HOSPITALIZATIONS AND OPERATIONS: She has had labor and deliveries, laminectomy, surgery on her left leg veins, placement of a Port-A-Cath and then it subsequently was removed. The patient has had a splenectomy. 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 It was removed surgically. 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 She also had hypertension but recently her blood pressure has not been elevated. INFECTIOUS DISEASE HISTORY: Positive for pneumonia. Negative for UTI. FAMILY HISTORY: Positive for diabetes mellitus, hypertension, myocardial infarction and cancer. SOCIAL HISTORY[place] . Her daughter lives with her. She does not have any pets at home. She does not smoke cigarettes, drink alcoholic beverages or abuse drugs. PHYSICAL EXAMINATION: Vital Signs: Temperature is 100.3 degrees, pulse 90, respirations 25, blood pressure is 127/57, patient is 159 pounds. General: This is an ill-appearing elderly female. She is in no acute distress. Head/eyes/ears/nose/throat: She can hear my spoken words and see near objects. She has a white coating of her tongue. Neck: No meningismus. Lungs: Clear to auscultation. Cardiovascular: Heart rate is regular. Abdomen: Soft and nontender. Integument: The patient has some ecchymoses present. Neurologic: Patient is alert. She can move her extremities. There is no tremor. Her sensation is intact to touch. Thank you for the consult. cc: Juan Gardner MD
[2019-05-08] MEDS ORDERED: OFIRMEV 1000 MG/ISOTONIC SOLN 1,000 MG/100 ML BOTTLE IV ONE (19:44)
[2019-05-08] MEDS: MIRALAX PO SCH (20:06)
[2019-05-08] MEDS: REMERON PO SCH (20:07)
[2019-05-08] MEDS: SODIUM CHLORIDE 0.9% INJ SCH (20:08)
[2019-05-08] MEDS: PROTONIX IV SCH (20:08)
[2019-05-08] MEDS: COLACE PO SCH (21:16)
--- NOTE | 2019-05-08 21:32 | PROGRESS NOTE ---
DATE: 05/08/2019 SUBJECTIVE: The patient is resting comfortably in bed. She states that she does not feel good. OBJECTIVE: Vital Signs: Temperature 99 degrees, blood pressure 131/55, heart rate 86, respirations 18, O2 saturation 97% on room air. General: This is a chronically ill-appearing, elderly female lying in bed in no acute distress. Heart: S1, S2 normal. Regular rate and rhythm. Lungs: Clear to auscultation bilaterally. No wheezing. No rales. Abdomen: Positive bowel sounds. Soft, nontender, nondistended. Extremities: No edema. No cyanosis. No calf tenderness. Neurologic: The patient is alert and oriented x3. LABORATORY DATA: White blood cell count 0.27, hemoglobin 7.4, hematocrit 22, platelets 105,000. ANC 0. Sodium 138, potassium 3.8, chloride 104, CO2 23, BUN 17, creatinine 0.7, glucose 113. RADIOLOGIC STUDIES: CT of the chest shows bronchial pneumonia and bilateral pleural effusions. ASSESSMENT AND PLAN: 1. Bilateral lobe pneumonia. Continue with broad-spectrum antibiotics, supplemental oxygen, and bronchodilator therapy. 2. Neutropenic fever likely secondary to underlying pneumonia. Continue with treatment of the underlying infection. 3. Neutropenia. Continue with neutropenic precautions. The patient has been started on Granix by the oncologist. 4. Constipation. We will start the patient on MiraLAX. 5. Pancytopenia. Aware. Transfuse p.r.n. 6. Diffuse B cell lymphoma. Aware. cc: Sapphire Keating MD [facility]
[2019-05-08] MEDS: VANCOMYCIN 1,150 MG in NS 250 ML IV SCH (23:07)
[2019-05-09] MEDS: NS 1,000 ML IV SCH ×3 (04:02→14:24)
[2019-05-09] MEDS: TYLENOL PO PRN ×3 (04:42→13:53)
--- NOTE | 2019-05-09 06:04 | HEMO/ONC CONSULTATION ---
DATE: 05/08/2019 CONSULTATION REQUESTED BY: Hospitalist Service. REASON FOR CONSULTATION: AML, neutropenia, patient known. HISTORY OF PRESENT ILLNESS: Ms. Fatima is a 78-year-old female, who is known to us as we are currently following her and treating her for AML that is secondary to her prior chemo for her diffuse large B-cell lymphoma. The patient is currently taking Dacogen and daily Venetoclax. She actually has been complaining of a headache for the last several days. She is in our clinic earlier this week, and we advised for her to go ahead and get a head CT as she chronically has thrombocytopenia related to both her disease and treatment. However, she actually fell, striking her head and the right side of her face. She came to our office after that fall and reports that she is having difficulty ambulating. We advised her to go to the emergency department for evaluation in order to get a head CT more urgently. She was evaluated there, and a CT of the head and cervical spine revealed stable extensive chronic white matter changes, but no evidence of any acute pathology or any fractures. She did though have signs and symptoms of sepsis, as well as rather extensive oral candidiasis and presumed esophageal candidiasis, and has now been admitted to the hospital for evaluation and treatment. The patient reports that she may have had low-grade fevers possibly at home, but she cannot tell me the exact temperature. She usually is taken care of by her sister, but her sister is not at bedside; rather, another family member is who does not know all the details. The patient is arousable, but is resting comfortably. PAST MEDICAL HISTORY: 1. Diffuse large B-cell lymphoma. She previously received R-CHOP completing her last dose October of 2016. She has been in remission since that time. 2. AML, currently receiving treatment. She is taking daily Venetoclax, as well as Dacogen. She is status post 4 cycles of Dacogen with her next cycle not due until the end of April. 3. GERD. 4. Hypertension. PAST SURGICAL HISTORY: 1. Splenectomy. 2. Back surgery. 3. Cataract removal. 4. Right breast biopsy. SOCIAL HISTORY: Patient lives with her daughter. She denies any alcohol, tobacco or illicit drug use. FAMILY HISTORY: Positive for hypertension, coronary artery disease. REVIEW OF SYSTEMS: Twelve point review of systems appears to be negative, except for what is expressed above. Again, the patient is resting comfortably, but is hard to have her answer all the questions fully. PHYSICAL EXAMINATION: Vital Signs: Temperature is 99.4 currently, heart rate 78, respirations 18, blood pressure 115/52, O2 saturation 95% on room air. General: This is a female lying in the hospital bed. She is in no acute distress. Head: Head normocephalic, atraumatic. Eyes: The patient will open her eyes. Her pupils are equal, round and reactive. Ears, nose, throat, neck, mouth: Oral mucosa appears to be normal. Gross auditory acuity is intact. Cardiovascular: S1, S2 heard. Respiratory: Chest is essentially clear. She has coarse breath sounds. Gastrointestinal: Abdomen is soft and nondistended. Musculoskeletal: No obvious bony abnormalities. Extremities: Some trace edema. Neurologic: Patient is arousable and does not seem to have any focal motor deficits. LABS AND STUDIES: White blood cells today are 0.20, hemoglobin 7.4, platelet count 105 after a unit of platelets yesterday. Absolute neutrophil count was 0.[address] and cervical spine CT as per the HPI, which were both found to be negative. ASSESSMENT AND PLAN: 1. 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 Patient is now currently receiving Dacogen and Venetoclax. She is status post 4 cycles of Dacogen. We are going to go ahead and have her hold her Venetoclax for the time being. She is not due for another round of Dacogen until 05/25/2019. 2. Neutropenia, secondary to treatment as well as her underlying disease. The patient is now acutely ill. We are going to go ahead and start her on Granix 580 mcg subcutaneous daily. Monitor counts. 3. Sepsis. Continue broad-spectrum antibiotics. Follow cultures. Follow also on ordered scans. Treat any infectious etiology as it presents itself. 4. Fall with strike to the head. No evidence of any bleeding currently. She is now status post a unit of platelets, and her count has improved to 105, which is more than adequate. Continue to monitor closely. 5. Pancytopenia again secondary to treatment. Continue to transfuse p.r.n. Granix as per above. Continue neutropenic precautions as well. Thank you for consulting us. We will be available as needed over the weekend. Will resume regular followup on Saturday. We will continue to follow along closely and adjust our treatment plan per the patient's hospital course. Dictated by DALILA Duncan for Cindi Koroma MD cc: Cindi Koroma MD I have seen and examined the patient and the above note reflects my history, physical exam and assessment and plan. Cindi Koroma MD [facility]
[2019-05-09 08:07] LABS: HEMATOCRIT 18.7 % (37.0-47.0); LYMPH# 0.22 X1000 (1.2-3.4); LYMPH% 95.7 % (20.5-51.1); MCH 27.1 PG (27-31); MCHC 32.1 g/dL (33-37); MCV 84.6 FL (81-99); MONO# 0.01 X1000 (0.11-0.59); MONO% 4.3 % (1.7-9.3); PLT 51 X1000 (130-400); RBC 2.21 XMIL (4.2-5.4); RDW 15.4 % (11.5-14.5); WBC 0.23 X1000 (4.8-10.8)
[2019-05-09] MEDS ORDERED: NS 500 ML IV ONE (08:20)
[2019-05-09 08:22] LABS: AGAP 12; ALB/GLOB RATIO 0.7; ALKALINE PHOSPHATASE 128 U/L (32-104); BUN 14 mg/dL (8-22); CALCIUM 7.2 mg/dL (8.8-10.2); CHLORIDE 107 mmol/L (98-107); COSMO 279; CREATININE 0.6 mg/dL (0.5-0.9); ESTIMATED GFR > 60; GLUCOSE 112 mg/dL (70-104); GOT 13 U/L (10-30); GPT 16 U/L (10-36); POTASSIUM 3.2 mmol/L (3.5-5.1); SODIUM 139 mmol/L (136-145); TCO2 20 mmol/L (25-35); TOTAL BILIRUBIN 0.47 mg/dL (0.20-1.00); TOTAL PROTEIN 4.8 g/dL (6.3-8.3)
[2019-05-09] MEDS ORDERED: POTASSIUM CHLORIDE 60 MEQ in NS 500 ML IV ONE (08:29)
[2019-05-09] MEDS: GRANIX SUBQ SCH (08:56)
[2019-05-09] MEDS: MIRALAX PO SCH ×2 (08:56→21:33)
[2019-05-09] MEDS: MEGACE LIQUID PO SCH ×2 (08:56→21:33)
[2019-05-09] MEDS: MAXIPIME 2 GM/NS 2 GM/100 ML IVPB IV SCH ×2 (08:58→23:11)
[2019-05-09] MEDS: ZYLOPRIM PO SCH ×2 (08:58→21:33)
[2019-05-09] MEDS: TAPAZOLE PO SCH (08:59)
[2019-05-09] MEDS: COLACE PO SCH ×2 (08:59→21:32)
[2019-05-09] MEDS: VITAMIN D PO SCH (08:59)
[2019-05-09] MEDS: PAXIL PO SCH (08:59)
[2019-05-09] MEDS: MYCELEX TROCHE PO SCH ×5 (08:59→21:32)
[2019-05-09] MEDS: NORCO-5 PO PRN ×2 (12:19→21:33)
[2019-05-09] MEDS: DIFLUCAN 200 MG/NS 200 MG/100 ML IVPB IV SCH (15:16)
[2019-05-09] MEDS ORDERED: LASIX IV ONE (18:19)
[2019-05-09] MEDS ORDERED: CALMOSEPTINE OINTMENT TOP PRN (19:01)
[2019-05-09] MEDS: PROTONIX IV SCH (21:33)
[2019-05-09] MEDS: REMERON PO SCH (21:34)
[2019-05-09] MEDS: SYSTANE EYE DROPS BOTH EYES SCH (21:35)
--- NOTE | 2019-05-09 23:29 | PROGRESS NOTE ---
DATE: 05/09/2019 SUBJECTIVE: The patient is resting comfortably in bed. No acute events noted overnight. OBJECTIVE: Vital Signs: T-max 99.4 degrees, blood pressure 120/63, heart rate 80, respirations 20, O2 saturation is 98% on room air. General: This is a chronically ill- appearing elderly female lying in bed in no acute distress. Heart: S1, S2 normal. Regular rate and rhythm. Lungs: Equal air entry bilaterally. No wheezing. No rales. No rhonchi. Abdomen: Positive bowel sounds. Soft, nontender, nondistended. Extremities: No edema. No cyanosis. Neurologic: The patient is alert and oriented x3. LABORATORY DATA: White blood cell count is 0.2, hemoglobin is 6, hematocrit is 18, platelets 51,000. Sodium is 139, potassium is 3.2, chloride is 107, CO2 is 20, BUN is 14, creatinine is 0.6, glucose is 112, albumin is 2. ASSESSMENT AND PLAN: 1. Bilateral lobe pneumonia. Continue with broad-spectrum antibiotics. Infectious Disease is following. 2. Neutropenic fever. Continue with neutropenic precautions and antibiotic therapy to treat the underlying infection. The patient is also on Granix. 3. Pancytopenia. The patient will receive 2 units of packed red blood cells today. The patient's platelet count is acceptable. 4. Constipation. Continue on MiraLAX and Colace. 5. Severe protein calorie malnutrition. We will add Megace and Ensure. 6. Hyperthyroidism. Continue on Tapazole. 7. Diffuse large B cell lymphoma. Aware. cc: Sapphire Keating MD [facility]
[2019-05-10] MEDS: SYSTANE EYE DROPS BOTH EYES SCH ×6 (00:04→20:32)
[2019-05-10] MEDS: NORCO-5 PO PRN ×4 (04:49→21:30)
[2019-05-10 09:11] LABS: HEMATOCRIT 31.7 % (37.0-47.0); HEMOGLOBIN 10.6 g/dL (12.0-16.0); LYMPH# 0.27 X1000 (1.2-3.4); MCH 27.5 PG (27-31); MCHC 33.4 g/dL (33-37); MCV 82.1 FL (81-99); MPV 9.6 FL (7.4-10.4); RBC 3.86 XMIL (4.2-5.4); RDW 14.9 % (11.5-14.5); WBC 0.27 X1000 (4.8-10.8)
[2019-05-10 09:15] LABS: PLT 25 X1000 (130-400)
[2019-05-10 09:32] LABS: AGAP 13; BUN 19 mg/dL (8-22); CALCIUM 8.5 mg/dL (8.8-10.2); CHLORIDE 100 mmol/L (98-107); COSMO 283; CREATININE 0.7 mg/dL (0.5-0.9); ESTIMATED GFR > 60; GLUCOSE 128 mg/dL (70-104); POTASSIUM 3.5 mmol/L (3.5-5.1); SODIUM 140 mmol/L (136-145); TCO2 27 mmol/L (25-35)
[2019-05-10] MEDS: PAXIL PO SCH (09:34)
[2019-05-10] MEDS: MIRALAX PO SCH ×2 (09:34→21:30)
[2019-05-10] MEDS: GRANIX SUBQ SCH (09:34)
[2019-05-10] MEDS: VITAMIN D PO SCH (09:34)
[2019-05-10] MEDS: MAXIPIME 2 GM/NS 2 GM/100 ML IVPB IV SCH ×2 (09:34→20:33)
[2019-05-10] MEDS: MYCELEX TROCHE PO SCH ×5 (09:34→21:29)
[2019-05-10] MEDS: COLACE PO SCH ×2 (09:35→21:30)
[2019-05-10] MEDS: TAPAZOLE PO SCH (09:35)
[2019-05-10] MEDS: MEGACE LIQUID PO SCH ×2 (09:35→21:30)
[2019-05-10] MEDS: ZYLOPRIM PO SCH ×2 (09:35→21:30)
--- NOTE | 2019-05-10 10:43 | Diag Imaging Result Doc PS360 ---
EXAM: CT HEAD W/O CONTRAST 05/10/2019 HISTORY: headache/thrombocytopenia/recent fall at home TECHNIQUE: This exam was performed using automated exposure control, adjustment of mA or kV according to patient size, and/or use of iterative reconstruction technique. COMMENT: There is patchy lucency throughout the white matter of both hemispheres particularly around the atria of the lateral ventricles and frontal horns. There is no evidence of mass effect, bleed, or abnormal extra-axial fluid collection. There is marked mucosal thickening in the right maxillary and throughout multiple ethmoid air cells as well as the right sphenoid sinus. There is mild mucosal thickening in the left sphenoid sinus and right frontal sinus. Most of these findings were present on 05/07/2019. IMPRESSION: Extensive sinusitis particularly in the right maxillary and ethmoid air cells. Chronic ischemic microvascular white matter changes. No definite evidence of acute disease. Given the chronic findings, further evaluation with MRI may be desirable if clinically indicated. Electronically signed by Brian Hidalgo 05/10/2019 10:41 AM
[2019-05-10] MEDS: VANCOMYCIN 1,150 MG in NS 250 ML IV SCH (12:58)
--- NOTE | 2019-05-10 13:05 | INFECTIOUS DISEASE PROGRESS NO ---
DATE: 05/10/2019 PRESENT ILLNESS: The patient has a bibasilar pneumonia and oral candidiasis. She also is neutropenic from chemotherapy for acute leukemia. MEDICATIONS: The patient is day #3 for treatment with cefepime and vancomycin, and day #2 for treatment with fluconazole and Mycelex. PHYSICAL EXAMINATION: Vital Signs: Temperature is 98.6 degrees, pulse 83, respirations 21, blood pressure 140/68. General: This is an ill-appearing, elderly female. She is slightly lethargic, but she is in no acute distress. HEENT: The patient is losing a lot of her hair. She still has some white patches on her tongue, but not as many as she had 2 days ago. Neck: No pain with movement. Lungs: Clear to auscultation. Cardiovascular: Heart rate is regular. Abdomen: Soft and nontender. Neurologic: The patient is slightly lethargic, but she is coherent and is oriented. She can move her extremities. There is no tremor. Integument: No rash noted. IMAGING AND LABORATORY DATA: CT scan of the chest shows bilateral basilar opacity. CT scan of the head shows no acute disease. The patient's CBC shows a white count of 230, hemoglobin 6, and platelet count 51,000. Creatinine is 0.6. GFR is greater than 60. The patient's IgG level is 758, and IgA is 157. Both of these amounts are within normal limits. ASSESSMENT AND PLAN: The patient has neutropenic fever due to bibasilar pneumonia. She also has oral candidiasis. The plan is to continue her with cefepime and vancomycin, as well as PO fluconazole and Mycelex troches. COMORBIDITIES: The patient is elderly and unfortunately, she has had a lymphoma, and now she has acute leukemia. The patient also has had a splenectomy. cc: Juan Gardner MD [facility]
[2019-05-10] MEDS: DIFLUCAN 200 MG/NS 200 MG/100 ML IVPB IV SCH (15:36)
[2019-05-10] MEDS: ZOFRAN PO PRN (15:44)
[2019-05-10] MEDS: TYLENOL PO PRN (17:59)
[2019-05-10] MEDS: SODIUM CHLORIDE 0.9% INJ SCH (20:32)
[2019-05-10] MEDS: PROTONIX IV SCH (20:32)
--- NOTE | 2019-05-10 21:02 | PROGRESS NOTE ---
DATE: 05/10/2019 SUBJECTIVE: The patient is resting comfortably in bed. No acute events noted overnight. She does complain of a headache on the side where she fell. OBJECTIVE: Vital Signs: Temperature 98.4 degrees, blood pressure 142/63, heart rate 95, respirations 17, O2 saturation 95% on room air. General: This is an elderly female lying in bed in no acute distress. Heart: S1, S2 normal. Regular rate and rhythm. Lungs: Equal air entry bilaterally. No wheezing. No rales. Abdomen: Positive bowel sounds. Soft, nontender, nondistended. Extremities: 1+ edema. Neurologic: The patient is alert and oriented x3. LABS: White blood cell count 0.2, hemoglobin 10, hematocrit 31, platelets 25,000, ANC 0. Sodium 140, potassium 3.5, chloride 100, CO2 27, BUN 19, creatinine 0.7, glucose 128. Head CT reveals extensive sinusitis in the right maxillary and ethmoid air cells. ASSESSMENT AND PLAN: 1. Bilateral lobe pneumonia. Continue with broad-spectrum antibiotics as directed by Dr. Gardner. 2. Extensive acute sinusitis. Continue with antibiotic therapy. 3. Thrush. Continue on Diflucan and Mycelex troches. 4. Neutropenic fever secondary to the underlying pneumonia. Continue to treat the underlying infection. 5. Neutropenia. Continue with neutropenic precautions. The patient is on Granix. 6. Pancytopenia. The hemoglobin and hematocrit are stable today. The platelet count did drop. We will continue to monitor and transfuse as necessary. 7. Constipation. Improved. Continue with laxative therapy. 8. Severe protein-calorie malnutrition. Continue with Megace and Ensure. 9. Hypothyroidism. Continue on Tapazole. 10. Diffuse large B-cell lymphoma. Aware. 11. We will consult physical therapy. cc: Sapphire Keating MD
[2019-05-10] MEDS: REMERON PO SCH (21:30)
[2019-05-11] MEDS: SYSTANE EYE DROPS BOTH EYES SCH ×6 (05:26→21:01)
[2019-05-11 06:08] LABS: AGAP 9; BUN 25 mg/dL (8-22); CALCIUM 8.3 mg/dL (8.8-10.2); CHLORIDE 96 mmol/L (98-107); COSMO 277; CREATININE 0.6 mg/dL (0.5-0.9); ESTIMATED GFR > 60; GLUCOSE 171 mg/dL (70-104); POTASSIUM 3.4 mmol/L (3.5-5.1); SODIUM 134 mmol/L (136-145); TCO2 29 mmol/L (25-35)
[2019-05-11 06:16] LABS: HEMATOCRIT 31.7 % (37.0-47.0); HEMOGLOBIN 10.9 g/dL (12.0-16.0); LYMPH# 0.18 X1000 (1.2-3.4); LYMPH% 94.7 % (20.5-51.1); MCH 28.3 PG (27-31); MCHC 34.4 g/dL (33-37); MCV 82.3 FL (81-99); MONO# 0.01 X1000 (0.11-0.59); MONO% 5.3 % (1.7-9.3); RBC 3.85 XMIL (4.2-5.4); WBC < 0.20 X1000 (4.8-10.8)
[2019-05-11 06:17] LABS: PLT 12 X1000 (130-400)
[2019-05-11 07:16] LABS: MAGNESIUM 1.5 mg/dL (1.5-2.7)
[2019-05-11] MEDS ORDERED: SODIUM PHOSPHATE 40 MMOL in NS 250 ML IV ONE (08:37)
[2019-05-11] MEDS ORDERED: MAGNESIUM SULFATE 2 GM/S.W.I. 2 GM/50 ML IVPB IV ONE (08:37)
[2019-05-11] MEDS ORDERED: KLOR-CON PO ONE (08:38)
[2019-05-11] MEDS ORDERED: CITRATE OF MAGNESIA PO ONE (08:52)
[2019-05-11] MEDS ORDERED: FIORICET PO ONE (08:52)
[2019-05-11] MEDS: MEGACE LIQUID PO SCH ×2 (08:59→21:00)
[2019-05-11] MEDS: MIRALAX PO SCH ×2 (08:59→21:00)
[2019-05-11] MEDS: MYCELEX TROCHE PO SCH ×5 (08:59→21:02)
[2019-05-11] MEDS: GRANIX SUBQ SCH (08:59)
[2019-05-11] MEDS: COLACE PO SCH ×2 (09:00→21:01)
[2019-05-11] MEDS: TAPAZOLE PO SCH (09:00)
[2019-05-11] MEDS: PAXIL PO SCH (09:00)
[2019-05-11] MEDS: VITAMIN D PO SCH (09:01)
[2019-05-11] MEDS: ZYLOPRIM PO SCH ×2 (09:01→21:02)
[2019-05-11] MEDS: MAXIPIME 2 GM/NS 2 GM/100 ML IVPB IV SCH ×2 (09:14→21:00)
[2019-05-11] MEDS: CILOXAN OPHTH SOLN RIGHT EYE SCH ×4 (10:00→21:01)
[2019-05-11] MEDS ORDERED: NS 500 ML ONE (11:34)
--- NOTE | 2019-05-11 14:17 | INFECTIOUS DISEASE PROGRESS NO ---
DATE: 05/11/2019 PRESENT ILLNESS: The patient has a bibasilar pneumonia, oral candidiasis, and most recently conjunctivitis. The patient is pancytopenic following chemotherapy for acute leukemia. MEDICATIONS: This is day 4 of treatment with cefepime and vancomycin. The patient also is receiving Mycelex troches and IV fluconazole and ciprofloxacin eyedrops. PHYSICAL EXAMINATION: Vital Signs: Temperature is 98.8 degrees, pulse 93, respirations 18, blood pressure 138/70. General: This is an ill-appearing elderly female. She is slightly lethargic. She is in no acute distress. Head/eyes/ears/nose/throat: There is some swelling around the eyes and some injection of the eyes also. There is no drainage from the nose or ears. The patient still has some white patches on her tongue. Neck: No pain with movement. Lungs: Clear to auscultation. Cardiovascular: The heart rate is regular. Abdomen: Soft and not tender. Neurologic: The patient is lethargic. She does talk in a coherent fashion. She can move her extremities. She does not have any tremor. Integument: No rash noted. LABORATORY AND RADIOLOGY: The patient's CBC shows a white count of less than 0.2, a hemoglobin of 10.9, and a platelet count of 12,000. Creatinine is 0.6. GFR is greater than 60. Procalcitonin is 0.5 which translates into the patient likely having pneumonia. A CT scan of the head showed maxillary and ethmoid sinusitis. ASSESSMENT AND PLAN: The patient has a bibasilar pneumonia, sinusitis, oral candidiasis, and conjunctivitis. My plan is to continue the current antimicrobial agents. COMORBIDITIES: The patient is elderly. She has a lymphoma and now acute leukemia. 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 cc: Juan Gardner MD
[2019-05-11] MEDS: NORCO-5 PO PRN (15:50)
[2019-05-11] MEDS: DIFLUCAN 200 MG/NS 200 MG/100 ML IVPB IV SCH (15:58)
[2019-05-11] MEDS: PROTONIX IV SCH (21:01)
[2019-05-11] MEDS: REMERON PO SCH (21:02)
[2019-05-11] MEDS: TYLENOL PO PRN (21:12)
--- NOTE | 2019-05-11 21:30 | HEMO/ONC PROGRESS NOTE ---
DATE: 05/11/2019 SUBJECTIVE: Ms. Fatima is lying in her hospital bed. Her sister is at bedside. Ms. Fatima reports that she feels weak and does not feel well but has no other new complaints. OBJECTIVE: Vital Signs: Temperature 98.8 degrees, heart rate 93 respirations 18, blood pressure 138/70, O2 saturation 96% on room air. LABS AND STUDIES: White blood cells today are less than 0.20, hemoglobin is 10.9, platelets are 12,000. Absolute neutrophil count is 0.00. Sodium is 134, potassium 3.4, chloride 96, CO2 29, BUN 25, creatinine 0.6, glucose 171, calcium is 8.3, phosphorus 2.0, magnesium 1.5. PHYSICAL EXAMINATION: Cardiovascular: S1, S2 heard. Regular rhythm. Respiratory: Coarse breath sounds noted throughout. Normal respiratory effort. Abdomen: Soft, with normoactive bowel sounds. Extremities: She does have trace edema. Neurologic: Patient is arousable and able to answer questions. ASSESSMENT AND PLAN: 1. Acute myeloid leukemia. Patient has been receiving Dacogen and venetoclax as an outpatient. Venetoclax is on hold. Her next Dacogen is not due for a week or so, but will not be initiated until she has recovered from her acute illness. 2. Pneumonia, sinusitis and oral thrush. All these are being treated by Dr. Gardner with Infectious Disease. Discussed with the patient and her sister today that it is going to be challenging considering that her neutrophil count is 0.0 and not really improving. Continue antibiotic coverage and continue to follow cultures and monitor closely. 3. Neutropenia. This is secondary to her treatment as well as her underlying disease. We have started Granix 480 mcg subcutaneously daily. Continue. Absolute neutrophil count is still 0.00 though today. Continue neutropenic precautions. 4. Thrombocytopenia, severe. Secondary to her underlying disease. Agree with platelet transfusion. Continue to transfuse platelets for counts less than 20,000 or if there is active bleeding or high fever. Monitor closely. 5. Anemia. Secondary to underlying disease. Hemoglobin is actually pretty good today at 10.9. Continue to monitor and transfuse p.r.n. DISPOSITION: The patient is quite ill. Again, we discussed how challenging it can be to treat infection with such low white blood cell counts and low immune system. We will continue to follow closely throughout this hospitalization. We will continue to communicate too with the patient and her family. Dictated by DALILA Duncan for Cindi Koroma MD cc: Cindi Koroma MD I have seen and examined the patient. The above note reflects my history, physical examination, assessment and plan. Cindi SOARES
--- NOTE | 2019-05-11 21:34 | PROGRESS NOTE ---
DATE: 05/11/2019 SUBJECTIVE: The patient complains of redness in her right eye as well as dry eyes. She also complains of a sinus headache. OBJECTIVE: Vital Signs: Temperature 98.6 degrees, blood pressure 141/67, heart rate 86, respirations 19, O2 saturation 96% on room air. General: This is a chronically ill-appearing elderly female lying in bed in no acute distress. Heart: S1, S2 normal. Regular rate and rhythm. Lungs: Equal air entry bilaterally. No wheezing. No rales. Abdomen: Positive bowel sounds. Soft, nontender, nondistended. Extremities: No edema. No cyanosis. Neurologic: The patient is alert and oriented x4. LABORATORY DATA: White blood cell count 0.2, hemoglobin 10, hematocrit 31, platelets 12,000. Sodium 134, potassium 3.4, chloride 96, CO2 25, BUN 25, creatinine 0.6, glucose 171, phosphorus 2, magnesium 1.5. ASSESSMENT AND PLAN: 1. Bilateral lobe pneumonia. Today is day #4 of antibiotic therapy with cefepime and vancomycin. 2. Extensive acute sinusitis. Continue with antibiotic therapy. 3. Thrush. Continue on Diflucan and Mycelex troches. 4. Neutropenic fever secondary to pneumonia. Continue to treat the underlying infection. 5. Neutropenia. The patient's counts have not recovered yet. The patient is currently on Granix. Continue on neutropenic precautions. 6. Hypothyroidism. Continue on Tapazole. 7. Pancytopenia. The patient will receive a platelet transfusion today. The hemoglobin and hematocrit remain stable. 8. Constipation. Improved. Continue with laxative therapy. 9. Diffuse large B-cell lymphoma. Aware. Oncology is following. 10. Severe protein-calorie malnutrition. Continue on Megace and Ensure. cc: Sapphire Keating MD [facility]
[2019-05-12] MEDS: SYSTANE EYE DROPS BOTH EYES SCH ×5 (01:11→16:20)
[2019-05-12] MEDS: CILOXAN OPHTH SOLN RIGHT EYE SCH ×6 (01:11→21:40)
[2019-05-12] MEDS: VANCOMYCIN 1,150 MG in NS 250 ML IV SCH (02:08)
[2019-05-12] MEDS: FIORICET PO PRN ×2 (02:20→21:40)
--- NOTE | 2019-05-12 06:54 | Diag Imaging Result Doc PS360 ---
CHEST-1 VIEW - 05/12/2019 INDICATION: pneumonia COMPARISON: 05/07/2019 FINDINGS: Stable left PICC line in good position. There is worsening hazy infiltrate in the left lower lobe. Heart size and pulmonary vascularity is top normal. Lung volumes remain low. IMPRESSION: Worsening left lower lobe infiltrate compatible with bronchopneumonia or atelectasis. Electronically signed by Tyler Babin 05/12/2019 6:52 AM
[2019-05-12 08:25] LABS: HEMOGLOBIN 10.2 g/dL (12.0-16.0); LYMPH# 0.16 X1000 (1.2-3.4); LYMPH% 94.1 % (20.5-51.1); MCH 27.5 PG (27-31); MCHC 32.9 g/dL (33-37); MCV 83.6 FL (81-99); MPV 10.3 FL (7.4-10.4); NEUT# 0.01 X1000 (1.4-6.5); NEUT% 5.9 % (42.2-75.2); PLT 81 X1000 (130-400); RBC 3.71 XMIL (4.2-5.4); RDW 15.5 % (11.5-14.5); WBC < 0.20 X1000 (4.8-10.8)
[2019-05-12] MEDS: MAXIPIME 2 GM/NS 2 GM/100 ML IVPB IV SCH (08:51)
[2019-05-12] MEDS: GRANIX SUBQ SCH (08:51)
[2019-05-12] MEDS: MIRALAX PO SCH ×2 (08:55→21:42)
[2019-05-12] MEDS: TYLENOL PO PRN ×2 (08:55→18:03)
[2019-05-12] MEDS: MYCELEX TROCHE PO SCH ×5 (08:55→21:41)
[2019-05-12] MEDS: TAPAZOLE PO SCH (08:56)
[2019-05-12] MEDS: VITAMIN D PO SCH (08:56)
[2019-05-12] MEDS: PAXIL PO SCH (08:56)
[2019-05-12] MEDS: MEGACE LIQUID PO SCH ×2 (08:56→21:41)
[2019-05-12] MEDS: ZYLOPRIM PO SCH ×2 (08:57→21:41)
[2019-05-12] MEDS: COLACE PO SCH ×2 (08:57→21:41)
[2019-05-12 09:14] LABS: AGAP 11; BUN 19 mg/dL (8-22); CALCIUM 8.4 mg/dL (8.8-10.2); CHLORIDE 97 mmol/L (98-107); COSMO 276; CREATININE 0.5 mg/dL (0.5-0.9); ESTIMATED GFR > 60; GLUCOSE 125 mg/dL (70-104); PHOSPHORUS 2.6 mg/dL (2.7-4.5); POTASSIUM 4.4 mmol/L (3.5-5.1); SODIUM 136 mmol/L (136-145); TCO2 28 mmol/L (25-35)
[2019-05-12] MEDS ORDERED: STERILE WATER INJ. INJ ONE (09:15)
[2019-05-12] MEDS ORDERED: CATHFLO IV ONE (09:15)
[2019-05-12] MEDS: DIFLUCAN 200 MG/NS 200 MG/100 ML IVPB IV SCH (14:51)
[2019-05-12] MEDS: MERREM 2 GM in NS 50 ML IV SCH ×2 (14:56→22:36)
--- NOTE | 2019-05-12 20:38 | PROGRESS NOTE ---
DATE: 05/12/2019 INTERVAL HISTORY: She had a fever of 100.8. SUBJECTIVE: She is still feeling weak. Her sister is at bedside. We discussed about persistent pneumonia, persistent leukopenia, neutropenia, and I answered all of their questions. Ms. Fatima is not sure since how long she has been taking methimazole for her thyrotoxicosis. We discussed about changing antibiotics. CURRENT VITAL SIGNS: She had a fever of 100.2 recently. Pulse of 93, respiratory rate 24, blood pressure 130/60. She is saturating 96% on room air. PHYSICAL EXAMINATION: Not in any acute distress. She has significant oral thrush. Air entry decreased in left infrascapular region with inspiratory crackles. No wheeze or rhonchi. S1, S2 normal. Regular on bedside monitor. No murmur or gallop.Abdomen: Soft, nontender. No lower extremity edema. She is alert and oriented x3. LABORATORY DATA: Labs suggestive of leukopenia, normocytic anemia, thrombocytopenia, normal kidney function. Her electrolytes are within acceptable range. MICROBIOLOGY: No positive data. IMAGING: Chest x-ray suggests worsening left lower lobe infiltrate compatible with bronchopneumonia. The patient does have poor oral intake and has not been eating a lot. ASSESSMENT AND PLAN: 1. Bilateral lower lobe pneumonia. Continue intravenous vancomycin. Infectious Disease team has started the patient on intravenous meropenem as well. Culture data so far is negative. Her pneumonia is likely in the setting of her leukemia and immunosuppressed status. 2. Oral candidiasis with dysphagia with suspicion of esophageal candidiasis. Continue current dose of fluconazole. The patient has also been on megestrol to help increase the appetite. 3. Pancytopenia. Status post 3 units of red blood cells and 2 units of platelet transfusion. Thought to be likely in the setting of acute myeloid leukemia as well as chemotherapy for it. Continue the patient on filgrastim as per Oncology's recommendation. The details of her methimazole in terms of the duration have not been clear, which I will investigate further. 4. Others. Continue home allopurinol for gout prevention, [place] as needed for pain, mirtazapine for insomnia, Zofran for nausea and vomiting, pantoprazole for stress ulcer prophylaxis, paroxetine which is her home medication. 5. I will get TSH and free T4 to see if she really needs methimazole or not, which could potentially contribute to agranulocytosis. I continued to encourage her to take oral medications by mouth. I rejected alteplase order that was placed on my behalf for left arm PICC line considering she has thrombocytopenia. DISPOSITION: Continue to monitor patient under neutropenic precautions on the medical floor. Plan of care discussed with the patient and her sister at bedside. Their questions have been answered. cc: Luiz Hillman MD
--- NOTE | 2019-05-12 21:25 | INFECTIOUS DISEASE PROGRESS NO ---
DATE: 05/12/2019 PRESENT ILLNESS: The patient has a bibasilar pneumonia, oral candidiasis, and conjunctivitis. The patient is pancytopenic following chemotherapy for acute leukemia. The patient also has sinusitis. MEDICATIONS: This is the 5th day of treatment with cefepime and vancomycin. The patient also is receiving Mycelex troches, IV fluconazole and ciprofloxacin eye drops. PHYSICAL EXAMINATION: Vital Signs: Temperature is 99.5 degrees, pulse 99, respirations 22, blood pressure is 142/69. General: This is a ill-appearing elderly female. She is slightly lethargic but she is in no acute distress. Head/eyes/ears/nose/throat: She can hear my spoken words and see near objects. She still has white patches on her tongue. She is not draining anything from her nose or ears. Neck: No pain with movement. Lungs: Clear to auscultation. Cardiovascular: Heart rate is regular. Abdomen: Soft and nontender. Extremities: The patient has a PICC in the left arm. The site is not erythematous or swollen. Neurologic: The patient is lethargic, but she talks in a coherent fashion and she can move her extremities. She does not have a tremor. Integument: No rash noted. LAB AND X-RAY: CBC shows a white count of less than 0.2, hemoglobin of 10.2, and a platelet count of 81,000. Creatinine is 0.5. GFR is greater than 60. Procalcitonin is 0.5 which translates into that it is likely the patient has pneumonia. Chest x-ray shows worsening of the left lower lobe infiltrate. ASSESSMENT AND PLAN: The patient has bibasilar pneumonia, sinusitis, oral candidiasis and conjunctivitis. My plan is to continue with the current antimicrobial agents. COMORBIDITIES: The patient is elderly. She has a lymphoma and now acute leukemia. 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 cc: Juan Gardner MD
[2019-05-12] MEDS: PROTONIX IV SCH (21:40)
[2019-05-12] MEDS: REMERON PO SCH (21:41)
[2019-05-12] MEDS: MERREM 2 GM in NS 100 ML IV SCH (23:22)
--- NOTE | 2019-05-12 23:50 | HEMO/ONC PROGRESS NOTE ---
DATE: 05/12/2019 SUBJECTIVE: Ms. Fatima is lying in the hospital bed. She has new complaints. Her sister is at bedside. OBJECTIVE: Vital Signs: Temperature is 99.5 degrees, heart rate 99, respirations 22, blood pressure 142/69, O2 saturation 97% on room air. Cardiovascular: Tachycardia noted but regular rhythm. Respiratory: Coarse breath sounds noted. Abdomen: Soft, with positive bowel sounds noted. Musculoskeletal: Patient does have some trace pedal edema. Eyes: The patient's right eye with some swelling, noted erythema and matting. LABS AND STUDIES: White blood cells were less than 0.20, hemoglobin is 10.2, platelets are up to 81, absolute neutrophil count 0.01. ASSESSMENT AND PLAN: 1. Acute myelogenous leukemia. The patient has been receiving Dacogen and venetoclax. Both treatments are on hold while she is acutely ill in the hospital. Plan will be to try to reinitiate those treatments at a later date, if able. 2. Pneumonia and sinusitis, oral thrush and now what appears to be right conjunctivitis. Dr. Gardner from Infectious Disease is on board and he is managing all of her antibiotic therapies. We will continue to monitor and follow along. 3. Neutropenia. Secondary to mainly her underlying disease and also her treatment. She is on Granix 480 mcg subcutaneously daily. Her ANC is essentially still the same at 0.01 today. Continue to monitor and continue all neutropenic precautions. 4. Thrombocytopenia. This is improved after receiving transfusion yesterday. 5. Anemia. Hemoglobin is actually remaining stable and adequate. Dictated by DALILA Duncan for Cindi Koroma MD cc: Cindi Koroma MD I have seen and examined the patient. The above note reflects my history, physical examination, assessment and plan. Cindi SOARES
[2019-05-13] MEDS: VANCOMYCIN 1,150 MG in NS 250 ML IV SCH (02:06)
[2019-05-13] MEDS: CILOXAN OPHTH SOLN RIGHT EYE SCH ×3 (02:06→09:30)
[2019-05-13] MEDS: NORCO-5 PO PRN ×2 (04:03→14:39)
[2019-05-13 07:29] LABS: NEUT# 0.01 X1000 (1.4-6.5)
[2019-05-13 08:12] LABS: FREE T4 0.81 ng/dL (0.93-1.70); TSH 1.35 uIUmL (0.27-4.20)
[2019-05-13] MEDS: MEGACE LIQUID PO SCH ×2 (08:30→21:52)
[2019-05-13] MEDS: TAPAZOLE PO SCH (08:30)
[2019-05-13] MEDS: MERREM 2 GM in NS 100 ML IV SCH ×3 (08:30→23:24)
[2019-05-13] MEDS: PAXIL PO SCH (08:31)
[2019-05-13] MEDS: VITAMIN D PO SCH (08:31)
[2019-05-13] MEDS: COLACE PO SCH ×2 (08:31→21:53)
[2019-05-13] MEDS: ZYLOPRIM PO SCH ×2 (08:31→21:53)
[2019-05-13] MEDS: MIRALAX PO SCH ×2 (08:31→21:52)
[2019-05-13] MEDS: MYCELEX TROCHE PO SCH ×5 (08:31→21:53)
[2019-05-13 09:07] LABS: HEMATOCRIT 28.4 % (37.0-47.0); HEMOGLOBIN 9.3 g/dL (12.0-16.0); LYMPH% 76.9 % (20.5-51.1); MCH 27.4 PG (27-31); MCHC 32.7 g/dL (33-37); MCV 83.8 FL (81-99); MONO# 0.02 X1000 (0.11-0.59); MONO% 15.4 % (1.7-9.3); MPV 10.6 FL (7.4-10.4); NEUT% 7.7 % (42.2-75.2); PLT 42 X1000 (130-400); RBC 3.39 XMIL (4.2-5.4); RDW 15.6 % (11.5-14.5); WBC < 0.20 X1000 (4.8-10.8)
[2019-05-13] MEDS: GRANIX SUBQ SCH (14:27)
[2019-05-13] MEDS: TOBRADEX OPH SUSP BOTH EYES SCH ×2 (14:28→21:53)
[2019-05-13] MEDS: DIFLUCAN 200 MG/NS 200 MG/100 ML IVPB IV SCH (15:57)
--- NOTE | 2019-05-13 17:44 | INFECTIOUS DISEASE PROGRESS NO ---
DATE: 05/13/2019 PRESENT ILLNESS: The patient is pancytopenic following chemotherapy for acute leukemia. She is being treated for the following infections: 1. Bibasilar pneumonia. 2. Oral candidiasis. 3. Conjunctivitis. 4. Sinusitis. MEDICATIONS: Yesterday, the patient was changed from cefepime to meropenem. She also is receiving IV vancomycin, IV fluconazole, Mycelex troches, and Cipro eyedrops. PHYSICAL EXAMINATION: Vital Signs: Temperature is 98.7 degrees, pulse 96, respirations 22, blood pressure is 125/54. General: This is an ill-appearing elderly female. She is lethargic, but she does not seem to be in any acute distress. Head/eyes/ears/nose/throat: She can hear my spoken words. The patient's vision is decreasing because of the swelling of the periorbital areas, including the eyelids, and both eyes are having clear fluid drainage. Lungs: Clear to auscultation. Cardiovascular: Heart rate is regular. Abdomen: Soft and nontender. Extremities: The patient has a PICC in the right arm. The site is not erythematous or swollen. Neurologic.: The patient is slightly lethargic, slightly lethargic but she is fully arousable. She can move her extremities to request. She is able to carry on a coherent conversation. Integument: No rash noted. LAB AND X-RAY: There is no new radiographic study. The patient's CBC shows a white blood cell count less than 0.2, hemoglobin is 9.3, and platelet count is 42,000. There is no BMP for today. ASSESSMENT AND PLAN: Patient has bibasilar pneumonia, sinusitis, oral candidiasis, and conjunctivitis. I am going to continue with meropenem and vancomycin. I am going to discontinue Cipro eyedrops and instead start the patient on TobraDex eyedrops every 6 hours in both eyes. COMORBIDITIES: The patient is elderly. She has a lymphoma and now acute leukemia, and she is receiving chemotherapy for it. She has previously had a splenectomy. cc: Juan Gardner MD
--- NOTE | 2019-05-13 20:49 | PROGRESS NOTE ---
DATE: 05/13/2019 INTERVAL HISTORY: Ms Fatima had a fever of 101.2 yesterday. Her ophthalmic eyedrops have been changed by Infectious Disease doctor. SUBJECTIVE: She is more sleepy today. She, however, follows commands. She was able to sit by the edge of the bed. She denies any new complaints. VITALS: Temperature 99.9 degrees, pulse 107, respiratory rate 22, blood pressure 140/68, saturating 96% room air. PHYSICAL EXAMINATION: Chest: She does have tachypnea today on my examination. Air entry otherwise bilaterally equal. No wheeze, rhonchi, crackles. Cardiovascular: S1, S2 normal. Regular. No murmur or gallop. Abdomen: Soft, nontender. Extremity: No lower extremity edema. Neurologic: She is alert oriented x3. Mouth: She does have prominent oral thrush. LABS: Current she continues to have pancytopenia. No positive microbiological findings. IMAGING DATA: Chest x-ray yesterday did have worsening infiltrate in the left lower lobe. ASSESSMENT AND PLAN: 1. Bilateral lower lobe pneumonia. 2. Oral candidiasis with suspected esophageal candidiasis. 3. Pancytopenia. 4. Acute myeloid leukemia. 5. History of suspected thyrotoxicosis, on methimazole. PLAN: I will continue her broad-spectrum intravenous vancomycin and intravenous meropenem as per Infectious Disease team's recommendation and follow up with chest x-ray tomorrow to evaluate for worsening pneumonia. She is also on intravenous fluconazole. She continues to have pancytopenia in the setting of her myeloid leukemia. Nephrology team is on board. I am holding her methimazole for now. The patient's condition is very sick. Plan of care discussed with the sister at bedside. Their questions have been answered. cc: MD FANY Villeda
[2019-05-13] MEDS: PROTONIX IV SCH (21:53)
[2019-05-13] MEDS: REMERON PO SCH (21:53)
--- NOTE | 2019-05-14 02:33 | EMERGENCY ROOM SUMMARY ---
SUBJECTIVE: Ms. Fatima is lying in the hospital bed. She has a family friend at bedside. OBJECTIVE: Vital Signs: Temperature 98.9 degrees, heart rate 100, respirations 20, blood pressure 155/75, O2 saturation 97% on room air, T-max has been 101.2, which was late yesterday evening. Cardiovascular: Tachycardia noted. Respiratory: Essentially clear with some coarse breath sounds. Abdomen: Soft with positive bowel sounds noted. Musculoskeletal: No obvious bony abnormalities. Extremities: She does have some trace bilateral extremity edema. Eyes: She continued to have swelling of her right eye. ASSESSMENT AND PLAN: 1. Acute myelogenous leukemia. Treatment is currently on hold. She was previously on Dacogen and venetoclax. Plan will be to reinitiate treatment once she has recovered from her acute illness. 2. Bibasilar pneumonia, sinusitis, right eye infection and oral thrush. Continue management per Dr. Gardner from Infectious Disease. 3. Neutropenia. We continue to give her Granix daily. Her ANC has not changed, it is 0.01 today. 4. Thrombocytopenia. Patient's platelets are starting to trend downward. This is expected given her underlying disease. Continue to provide platelet transfusions as needed. 5. Anemia. Patient's hemoglobin continues to remain relatively stable at 9.3. We will continue to monitor closely. Dictated by DALILA Duncan for Cindi Koroma MD cc: Cindi Koroma MD I have seen and examined the patient and the above note reflects my history, physical exam, assessment and plan. Cindi Koroma MD [facility]
[2019-05-14] MEDS: TOBRADEX OPH SUSP BOTH EYES SCH ×4 (03:09→22:20)
[2019-05-14] MEDS: VANCOMYCIN 1,150 MG in NS 250 ML IV SCH (03:10)
--- NOTE | 2019-05-14 07:21 | Diag Imaging Result Doc PS360 ---
EXAM: CHEST-PORTABLE 05/14/2019 HISTORY: dyspnea TECHNIQUE: AP portable upright at 0525 COMMENT: There is a PICC line on the left with its tip in the superior vena cava. There is retrocardiac opacity in the left lower lobe. This was also present on 05/12/2019 but is definitely worse than on 05/07/2019. IMPRESSION: Left lower lobe atelectasis versus pneumonia. Electronically signed by Brian Hidalgo 05/14/2019 7:18 AM
[2019-05-14] MEDS: MERREM 2 GM in NS 100 ML IV SCH ×3 (08:38→23:59)
[2019-05-14] MEDS: TYLENOL PO PRN ×2 (08:39→21:21)
[2019-05-14] MEDS: NORCO-5 PO PRN ×2 (08:39→18:08)
[2019-05-14] MEDS: MIRALAX PO SCH ×2 (08:40→22:09)
[2019-05-14] MEDS: PAXIL PO SCH (08:41)
[2019-05-14] MEDS: COLACE PO SCH ×2 (08:41→22:10)
[2019-05-14] MEDS: MYCELEX TROCHE PO SCH ×5 (08:41→22:09)
[2019-05-14] MEDS: MEGACE LIQUID PO SCH ×2 (08:41→22:09)
[2019-05-14] MEDS: ZYLOPRIM PO SCH ×2 (08:41→22:09)
[2019-05-14] MEDS: VITAMIN D PO SCH (08:41)
[2019-05-14 09:07] LABS: HEMATOCRIT 28.3 % (37.0-47.0); HEMOGLOBIN 9.3 g/dL (12.0-16.0); LYMPH# 0.19 X1000 (1.2-3.4); LYMPH% 82.6 % (20.5-51.1); MCH 27.4 PG (27-31); MCHC 32.9 g/dL (33-37); MCV 83.5 FL (81-99); MONO# 0.02 X1000 (0.11-0.59); MONO% 8.7 % (1.7-9.3); MPV 11.2 FL (7.4-10.4); NEUT# 0.02 X1000 (1.4-6.5); NEUT% 8.7 % (42.2-75.2); PLT 21 X1000 (130-400); RBC 3.39 XMIL (4.2-5.4); WBC 0.23 X1000 (4.8-10.8)
[2019-05-14 09:21] LABS: AGAP 10; BUN 23 mg/dL (8-22); CALCIUM 8.8 mg/dL (8.8-10.2); CHLORIDE 96 mmol/L (98-107); COSMO 274; CREATININE 0.5 mg/dL (0.5-0.9); ESTIMATED GFR > 60; GLUCOSE 130 mg/dL (70-104); MAGNESIUM 1.7 mg/dL (1.5-2.7); POTASSIUM 3.7 mmol/L (3.5-5.1); SODIUM 134 mmol/L (136-145); TCO2 28 mmol/L (25-35)
[2019-05-14] MEDS: GRANIX SUBQ SCH (09:53)
[2019-05-14] MEDS: DIFLUCAN 200 MG/NS 200 MG/100 ML IVPB IV SCH (17:26)
--- NOTE | 2019-05-14 20:31 | PROGRESS NOTE ---
DATE: 05/14/2019 INTERVAL HISTORY: No acute events overnight. She has not had any fevers in the last 24 hours. She does have a drop in her platelet count again. The chest x-ray suggests worsening left lower lobe pneumonia. We have held her methimazole. SUBJECTIVE: Ms. Fatima says she is not feeling well because she is having a lot of headache affecting the right side of her head. She appears in mild distress at the moment. Her sister is at bedside. She denies pain in the eye. Yesterday, her ear was hurting, but she is better right now. She is only complaining of temporal headache. VITALS: Temperature of 98.2 degrees, pulse 97, respiratory 17, blood pressure 146/61. She is saturating 97% on room air. PHYSICAL EXAMINATION: General: She is in mild distress. HEENT: Oral cavity is moist. She has some rhinorrhea without any nasal congestion. Her right ear examination suggests wax, but tympanic membrane appears without any perforation, pus or blood. She has significant swelling of the right-side periorbital region with surrounding erythema, which was not evident on my yesterday's examination. However, she is able to open eyes. Her vision is intact. She denies any double vision. She is able to count my fingers. She, on examination, is able to tolerate flash of light. Her pupils are bilaterally equal reacting to light. She is able to move eyeballs both sides of midline; however, the movement area is slightly restricted. She denies pain while moving her eye eyeball. There is no proptosis. Lungs: Air entry bilaterally equal. No wheeze or rhonchi. Mild crackles on left infra-axillary region. Cardiovascular: S1, S2 normal. No murmur, rub, or gallop. Slightly tachycardic. Abdomen: Soft, nontender. Extremity: No lower extremity edema. Neurologic: She is alert and oriented, but appears in distress. LABS: Suggestive of persistent pancytopenia. She does have normal electrolytes, no positive microbiological data. Her oral thrush is improved though there are still some curdy white patches affecting tongue and soft palate. ASSESSMENT AND PLAN: 1. Right facial cellulitis. I will get CT scan of her orbits to evaluate this further. On clinical examination, it looks like preorbital cellulitis; however, orbital cellulitis needs to be ruled out, though she does not have any proptosis or pain with eye movement and her pupils are equally reacting. I will keep her on broad-spectrum antibiotics. Previously, head CT had detected extensive sinusitis of right maxillary ethmoidal air cells. I will sign out to the night team about following up with the results and possibly transfer her to higher level of care for urgent ophthalmology evaluation if there is retroorbital cellulitis or abscess. 2. Bilateral lower lobe pneumonia. Continue intravenous meropenem and intravenous vancomycin and as per Infectious Disease recommendation. 3. Oral thrush and suspected esophageal candidiasis. Continue intravenous fluconazole. 4. 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 She is now developing pancytopenia secondary to acute myelogenous leukemia and chemotherapy for it. Oncology team on board. We will transfuse with a goal platelet of more than 10,000 or more than 20,000 if she was bleeding. 5. History of thyrotoxicosis. I am holding her methimazole for now and we will check a periodic TSH and free T4. DISPOSITION: I will continue to monitor patient inside the hospital. I will follow up with CT scan. If she has any evidence of orbital cellulitis, we may have to consult Ophthalmology. Previously head CT, though was without contrast, did not detect any intracranial extension of infection, which I will monitor her for. In future I may consider consulting neurology. cc: Luiz Hillman MD MTDD
[2019-05-14] MEDS: REMERON PO SCH (22:09)
[2019-05-14] MEDS: PROTONIX IV SCH (22:10)
[2019-05-14] MEDS: SODIUM CHLORIDE 0.9% INJ SCH (22:10)
[2019-05-15] MEDS: TOBRADEX OPH SUSP BOTH EYES SCH ×4 (03:15→20:47)
[2019-05-15 03:46] LABS: HEMATOCRIT 27.4 % (37.0-47.0); LYMPH# 0.19 X1000 (1.2-3.4); LYMPH% 79.2 % (20.5-51.1); MCH 27.4 PG (27-31); MCHC 32.8 g/dL (33-37); MCV 83.5 FL (81-99); MONO# 0.01 X1000 (0.11-0.59); MONO% 4.2 % (1.7-9.3); NEUT% 16.6 % (42.2-75.2); PLT 11 X1000 (130-400); RBC 3.28 XMIL (4.2-5.4); WBC 0.24 X1000 (4.8-10.8)
[2019-05-15 03:47] LABS: NEUT# 0.04 X1000 (1.4-6.5)
[2019-05-15] MEDS ORDERED: VANCOMYCIN 1,500 MG in NS 250 ML IV SCH (05:30)
--- NOTE | 2019-05-15 07:39 | Diag Imaging Result Doc PS360 ---
EXAM: CT ORBIT W/O CONTRAST INDICATION: Rule out orbital cellulitis/preorbital cellulitis TECHNIQUE: This exam was performed using automated exposure control, adjustment of mA or kV according to patient size, and/or use of iterative reconstruction technique. COMPARISON: None. FINDINGS: There is mild preseptal soft tissue edema in the right periorbital region, mainly at the lower lid.. Although nonspecific, this could certainly represent preseptal cellulitis. Although sensitivity is limited by lack of IV contrast, no definite postseptal involvement is appreciated and there is no definite abscess identified. The globes are intact. There is extensive opacification of the ethmoid air cells and the right maxillary sinus indicating sinusitis. There is moderate left maxillary, frontal, and sphenoid sinus disease as well. The mastoid air cells are clear. The surrounding bony structures are grossly intact. IMPRESSION: 1.Mild preseptal soft tissue edema suggesting possible preseptal cellulitis. However, given the limitations of an unenhanced study, no definite abscess or postseptal extension is appreciated. 2.Significant pansinusitis. Electronically signed by Milton Scanlon 05/15/2019 7:37 AM
[2019-05-15] MEDS: MERREM 2 GM in NS 100 ML IV SCH ×2 (08:51→20:46)
[2019-05-15] MEDS: MEGACE LIQUID PO SCH ×2 (08:52→20:47)
[2019-05-15] MEDS: VITAMIN D PO SCH (08:52)
[2019-05-15] MEDS: ZYLOPRIM PO SCH ×2 (08:52→20:47)
[2019-05-15] MEDS: MIRALAX PO SCH ×3 (08:52→23:18)
[2019-05-15] MEDS: COLACE PO SCH ×2 (08:52→20:47)
[2019-05-15] MEDS: MYCELEX TROCHE PO SCH ×6 (08:53→20:46)
[2019-05-15] MEDS: PAXIL PO SCH (08:53)
[2019-05-15] MEDS: GRANIX SUBQ SCH (08:53)
[2019-05-15] MEDS: NORCO-5 PO PRN ×2 (09:04→20:59)
--- NOTE | 2019-05-15 09:44 | PROGRESS NOTE ---
DATE: 05/15/2019 SUBJECTIVE: Overnight, I was informed that the night team tried several times to get the report on the orbital CT but they could not get the report on orbital CT. In the morning time, I called the nurse and asked if a fax report of her orbit CT has been available. However, the nurse states she tried as well. There was no report on her orbit CT. I called the Radiology Department and I talked with the radiologist who quickly looked at the images and suggested that she does have swelling suggestive of preseptal cellulitis but he could not see any abscess or anything like that post septally. PLAN: I will continue to manage her through IV antibiotics. I will wait for the official read. In any case, I may consider calling Ophthalmology. cc: Luiz Hillman MD
[2019-05-15] MEDS: CUBICIN 500 MG in NS 100 ML IV SCH (12:34)
--- NOTE | 2019-05-15 14:27 | PROGRESS NOTE ---
DATE: 05/15/2019 INTERVAL HISTORY: Patient continues to have fever episodes. Her temperature was 100.8 degrees yesterday evening time. SUBJECTIVE: She denies new complaints. She states she is not feeling good and she is feeling very weak. We discussed about her pancytopenia, leukemia. We also discussed about her preseptal cellulitis. Her sister is at bedside. I discussed with her extensively about exam finding. I answered all of her questions. OBJECTIVE: Vital Signs: Current temperature 99.3 degrees, pulse 98, respiratory rate 17, blood pressure 170/70, saturating 97% room air. General: She is in mild distress because of weakness. She also has some discomfort around eyes. HEENT: Oral cavity has Jell-O. I could not see any definitive white plaques. Lungs: Air entry bilaterally equal. No wheeze or rhonchi. Mild crackles in left infrascapular region. Cardiovascular: S1, S2 normal. Tachycardic, regular. No murmur, rub, or gallop on bedside telemetry unit. Abdomen: Soft, nontender. Extremities: No lower extremity edema. Skin: No rash. Neurologic: She is alert and oriented x3. Eye examination: Left pupil equal, reacting to light. No abnormality. She has erythema and edema affecting the right eyelid and right maxillary region. She has conjunctival edema as well. Her right pupil is equal, reacting to light. She is able to count fingers from about 1 meter distance from her right eye. She is able to have extraocular movements both sides of midline and above and down with the right eye, though it is slightly restricted. There is no photophobia. There is no pain on movement of the eyes. LABORATORY DATA: Suggestive of persistent leukopenia, normocytic anemia, thrombocytopenia. She does not have any electrolytes. MICROBIOLOGY: No positive data so far. IMAGING: Chest x-ray performed yesterday had left lower lobe atelectasis versus pneumonia. Orbit CT had mild preseptal soft tissue edema suggestive of possible preseptal cellulitis. No definitive abscess or postseptal extension appreciated on limited examination without contrast. She has significant pansinusitis. ASSESSMENT AND PLAN: 1. Right-sided orbital preseptal cellulitis likely secondary from severe right-sided sinusitis. Continue intravenous vancomycin, intravenous meropenem. I had a discussion with Infectious Disease if we need to change intravenous fluconazole to a broader antifungal coverage to include mucormycosis or Aspergillus. I will also consult ENT. Will appreciate both recommendations. I called the roller mill operator at his office. I initially called [facility] who suggested me to call roller mill operator's office and talk with roller mill operator on the phone, which I did, and I was suggested that considering her preseptal cellulitis, the management would remain broad-spectrum antibiotics. However, suggested that if there is worsening of status, a repeat CT scan could be performed in future. 2. Oral candidiasis and suspected esophageal candidiasis. She is on anti fungal, intravenous fluconazole. 3. 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 Now she is developing pancytopenia secondary to that, secondary to acute myeloid leukemia and chemotherapy related to it. Oncology team on board. She does have a drop in platelet count and we will transfuse her. 4. History of thyrotoxicosis, holding her methimazole for now and follow up with serial thyroid function. 5. Bilateral lower lobe pneumonia. Continue intravenous meropenem and intravenous vancomycin as per Infectious Disease recommendation. 6. Disposition. The patient's condition is sick. I will continue to monitor her in telemetry unit. Plan of care extensively discussed with the patient and her sister at bedside. All of their questions have been answered. cc: Luiz Hillman MD
[2019-05-15] MEDS ORDERED: NS 500 ML ONE (15:08)
[2019-05-15] MEDS: AMBISOME IV SCH (16:12)
[2019-05-15] MEDS: D5W IV SCH (16:12)
[2019-05-15] MEDS: D5W 50 ML IV SCH (16:12)
[2019-05-15] MEDS ORDERED: AFRIN NASAL SPRAY NAS ONE (16:20)
--- NOTE | 2019-05-15 18:38 | INFECTIOUS DISEASE PROGRESS NO ---
DATE: 05/15/2019 PRESENT ILLNESS: The patient is pancytopenic following chemotherapy for leukemia. The patient has the following infections. #1. Bibasilar pneumonia. #2. Oral candidiasis. #3. Conjunctivitis. #4. Sinusitis. Also the patient has had marked periorbital swelling and I agree with Dr. Hillman that the patient could have a orbital cellulitis or a preseptal cellulitis which may be caused by a fungus such as Aspergillus or Mucor. MEDICATIONS: Patient currently is on meropenem, IV vancomycin, IV fluconazole, Mycelex troches and TobraDex eye drops. PHYSICAL EXAMINATION: Vital Signs: Temperature is 99.3 degrees, pulse 98, respirations 17, blood pressure is 171/71. General: This is an ill-appearing elderly female. She is lethargic. She does not seem to be in any acute distress. Head/eyes/ears/nose/throat: The patient's whole right periorbital area is swollen and erythematous. The right eye is draining a clear fluid. There is some injection of the sclera. She is able to see through both eyes. Lungs: Clear to auscultation. Cardiovascular: Heart rate is regular. Abdomen: Soft and nontender. Extremities: The patient has a PICC in the right arm. The site is not erythematous, swollen or tender. Neurologic: The patient is lethargic but she is arousable and she can talk in a coherent fashion. She can move her extremities. LAB AND X-RAY: The patient's CBC today shows a white count of 240, hemoglobin 9, platelet count 11,000. The patient does not have a BMP from today. Yesterday the creatinine was 0.5, GFR was greater than 60. The patient's CT of the orbit showed possible preseptal cellulitis and pansinusitis. ASSESSMENT AND PLAN: The patient has a bibasilar pneumonia, pansinusitis, oral candidiasis and conjunctivitis. As mentioned above, I think Dr. Hillman is right to be concerned that the patient could have a orbital cellulitis or a preseptal cellulitis. Since the patient has very good coverage for most bacterial infections, I think Dr. Hillman's thought of the patient having a fungal infection causing the facial swelling and specifically the 2 fungi he was most concerned about are Aspergillus and Mucor with which I agree. Therefore, I am going to stop vancomycin and put the patient on daptomycin. I am doing this because I am going to also start the patient on AmBisome and by stopping vancomycin there will not be as much nephrotoxicity. As just mentioned, I have also starting today the patient on AmBisome. Some of the side effects of the medications including renal toxicity and electrolyte abnormalities and muscle toxicity have been explained to the patient who agrees with treatment. COMORBIDITIES: The patient is elderly. She has a lymphoma and now she is receiving chemotherapy for acute leukemia. 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 cc: Juan Gardner MD
--- NOTE | 2019-05-15 20:09 | HEMO/ONC PROGRESS NOTE ---
DATE: 05/15/2019 SUBJECTIVE: Ms. Fatima is resting in her hospital bed. She has no new complaints. OBJECTIVE: Vital Signs: Temperature 89.9, heart rate 86, respirations 15, blood pressure 135/49, O2 saturation 91% on room air. LABORATORY: White blood cells today are 0.24, hemoglobin 9.0, platelet count 11,000, ANC 0.04. PHYSICAL EXAMINATION: CV: S1, S2 heard. No murmurs, gallops, rubs appreciated. Respiratory: Some coarse breath sounds. Gastrointestinal: Abdomen is soft. Extremities: She has no edema noted. Orbital CT which was done on 05/14/2019 does show the patient to have some preseptal soft tissue edema suggesting possible preseptal cellulitis. She also has significant pansinusitis. ASSESSMENT: 1. Acute myeloid leukemia. Patient was previously on Dacogen and Venetoclax. These treatments are currently on hold. 2. Pancytopenia secondary to underlying disease as well as treatment. Continue supportive measures for now. The patient's white count has minimally improved but is trending upward at this time. Continue to provide transfusions as needed. Would like to see how things go through the weekend and follow back up on Saturday. We are hopeful that her counts will recover but it could be slightly slow process. She is on Granix daily which we will continue. Continue neutropenic precautions as well. 3. Pneumonia, sinusitis, right eye infection. Dr. Gardner is on board and is managing all the patient's antibiotics. Continue management per his recommendations. Again we would prefer to have the patient go through the weekend and see how things are on Saturday. 4. Thrombocytopenia. We go ahead and order 1 unit of platelets today. Would recommend transfusing for platelet count 15,000 or less or if there is significant bleeding noted. 5. Disposition. Again our hope is that the patient's counts will recover some and she will be able to clear some of these infections. We would prefer waiting through the weekend and see how things are on Saturday. If no improvement at that time, will discuss plans going forward. We will sign off just for the weekend. We will be available though by phone. We will follow up with regular visits on Saturday. Dictated by DALILA Duncan for Ld Pappas MD cc: Ld Pappas MD [facility] HOSPITALHansel
[2019-05-15] MEDS: PROTONIX IV SCH (20:46)
[2019-05-15] MEDS: REMERON PO SCH (20:46)
[2019-05-16] MEDS: TOBRADEX OPH SUSP BOTH EYES SCH ×4 (01:29→20:35)
[2019-05-16] MEDS: MERREM 2 GM in NS 100 ML IV SCH ×3 (04:09→20:34)
[2019-05-16] MEDS: TYLENOL PO PRN ×2 (05:18→20:35)
[2019-05-16 07:35] LABS: HEMATOCRIT 26.3 % (37.0-47.0); HEMOGLOBIN 8.4 g/dL (12.0-16.0); LYMPH# 0.21 X1000 (1.2-3.4); LYMPH% 72.4 % (20.5-51.1); MCH 26.8 PG (27-31); MCHC 31.9 g/dL (33-37); MONO# 0.02 X1000 (0.11-0.59); MONO% 6.9 % (1.7-9.3); MPV 10.9 FL (7.4-10.4); NEUT# 0.06 X1000 (1.4-6.5); NEUT% 20.7 % (42.2-75.2); PLT 52 X1000 (130-400); RBC 3.13 XMIL (4.2-5.4); RDW 16.1 % (11.5-14.5); WBC 0.29 X1000 (4.8-10.8)
[2019-05-16 07:48] LABS: AGAP 10; BUN 28 mg/dL (8-22); CALCIUM 8.8 mg/dL (8.8-10.2); CHLORIDE 97 mmol/L (98-107); COSMO 285; CREATININE 0.5 mg/dL (0.5-0.9); ESTIMATED GFR > 60; GLUCOSE 128 mg/dL (70-104); MAGNESIUM 1.9 mg/dL (1.5-2.7); POTASSIUM 3.5 mmol/L (3.5-5.1); SODIUM 139 mmol/L (136-145); TCO2 32 mmol/L (25-35)
[2019-05-16 07:49] LABS: LYMPHS 90 % (21-51); NRBC 3 % (0-0); SEGS 10 % (42-75)
[2019-05-16] MEDS: GRANIX SUBQ SCH (09:47)
[2019-05-16] MEDS: MEGACE LIQUID PO SCH (09:47)
[2019-05-16] MEDS: ZYLOPRIM PO SCH ×2 (09:47→20:34)
[2019-05-16] MEDS: COLACE PO SCH (09:47)
[2019-05-16] MEDS: MYCELEX TROCHE PO SCH ×5 (09:47→20:35)
[2019-05-16] MEDS: PAXIL PO SCH (09:48)
[2019-05-16] MEDS: MIRALAX PO SCH ×2 (09:48→20:35)
[2019-05-16] MEDS: VITAMIN D PO SCH (09:48)
[2019-05-16] MEDS: LR 1,000 ML IV SCH (12:56)
[2019-05-16] MEDS: CUBICIN 500 MG in NS 100 ML IV SCH (14:05)
[2019-05-16] MEDS: NORCO-5 PO PRN (15:38)
[2019-05-16] MEDS: AMBISOME IV SCH (16:08)
[2019-05-16] MEDS: D5W IV SCH (16:08)
[2019-05-16] MEDS: D5W 50 ML IV SCH (16:09)
--- NOTE | 2019-05-16 19:28 | PROGRESS NOTE ---
DATE: 05/16/2019 INTERVAL HISTORY: She received 1 unit of platelet transfusion yesterday, which she tolerated well and she had appropriate rise in platelet count. ENT physician was consulted considering her acute sinusitis and suspicion of mucormycosis, and a few samples from her nasal middle turbinates were taken and sent to the lab. However, according to his recommendation and review of images, suspicion of invasive aspergillosis or mucormycosis was less. I had a discussion about her clinical condition with an lvn lpn on the phone, and considering the preseptal nature of her cellulitis, conservative management with intravenous antibiotics was recommended. I was advised that in the future if her condition gets worse, then a repeat CT scan could be performed. SUBJECTIVE: Ms. Fatima was able to work with physical therapy today. She has been eating Ensure, but has had poor appetite for solid food. Her family is at bedside. VITALS: She continues to have intermittent fever with temperature of 100 yesterday, pulse 95, respiratory rate 18, blood pressure 150/50, saturating 98% on room air. PHYSICAL EXAMINATION: Not in any acute distress. She appears more comfortable today. Her right orbital cellulitis is improving. She is able to open both of her eyes. She continues to have right conjunctival edema. Pupils are bilaterally equal, reacting to light. Extraocular movements are improved on the right side. She has some epistaxis with clear watery discharge in the right nasal cavity. Continues to have candidiasis affecting tongue. No candidiasis of soft palate or pharynx that I could visualize. Air entry decreased in bilateral infrascapular region with inspiratory crackles. S1, S2 regular. No murmur rub or gallop.Abdomen: Soft, nontender. No lower extremity edema. She is alert and oriented x3. LABORATORY DATA: Suggestive of slight increase in WBC count to 0.29, platelet of 52,000, hemoglobin of 8.4. She has normal electrolytes. MICROBIOLOGY: No positive data. IMAGING: No new data. ASSESSMENT AND PLAN: 1. Right-sided orbital preseptal cellulitis, likely secondary from severe right- sided sinusitis affecting maxillary and ethmoidal air cells. Continue broad-spectrum antibiotics and antifungal. Her antifungal was changed to intravenous amphotericin B liposomal considering suspicion of invasive fungal sinusitis. ENT physician has taken a sample from her nasal cavity. I will follow up with final results of those samples. 2. Neutropenic fever and bilateral lower lobe lung pneumonia. Her antibiotics have been changed to intravenous daptomycin, intravenous meropenem, and currently she is on antifungal medication of amphotericin B. 3. Oral candidiasis and suspected esophageal candidiasis. She has been on intravenous fluconazole which has now changed to amphotericin. Also, her candidiasis has been improving. 4. History of diffuse large B-cell lymphoma, status post R-CHOP in October 2016, and then acute myeloid leukemia, for which she has been on venetoclax as well as Dacogen, and now developing pancytopenia related to myeloleukemia as well as chemotherapy for it. Hematology/Oncology team on board. I will continue her on Granix, and I will follow up with daily blood counts and will transfuse her as necessary. She is also on megestrol for appetite stimulation, which has not been working, and I will consider discontinuing it considering risk associated with DVT. I will start her on intravenous fluids considering she is on amphotericin. 5. History of hyperthyroidism: I stopped METHIMAZOLE on 05/14 considering possible side effect of agranulocytosis. DISPOSITION: I will continue to monitor patient inside the hospital. Her condition and prognosis are quite guarded at the moment. I am continuing to address them with the patient and her family at bedside. cc: MD FANY Villeda
[2019-05-16] MEDS: REMERON PO SCH (20:34)
[2019-05-17] MEDS: TOBRADEX OPH SUSP BOTH EYES SCH ×4 (01:50→20:01)
[2019-05-17] MEDS: PRILOSEC PO SCH (06:26)
[2019-05-17] MEDS: MERREM 2 GM in NS 100 ML IV SCH ×3 (06:26→21:35)
[2019-05-17 07:48] LABS: AGAP 10; BUN 27 mg/dL (8-22); CALCIUM 8.6 mg/dL (8.8-10.2); CHLORIDE 98 mmol/L (98-107); COSMO 284; CREATININE 0.5 mg/dL (0.5-0.9); ESTIMATED GFR > 60; GLUCOSE 129 mg/dL (70-104); POTASSIUM 2.9 mmol/L (3.5-5.1); SODIUM 139 mmol/L (136-145); TCO2 31 mmol/L (25-35)
[2019-05-17 07:59] LABS: FREE T4 0.75 ng/dL (0.93-1.70); TSH 0.59 uIUmL (0.27-4.20)
[2019-05-17 08:07] LABS: HEMATOCRIT 26.1 % (37.0-47.0); HEMOGLOBIN 8.5 g/dL (12.0-16.0); LYMPH# 0.23 X1000 (1.2-3.4); LYMPH% 65.7 % (20.5-51.1); MCH 27.1 PG (27-31); MCHC 32.6 g/dL (33-37); MCV 83.1 FL (81-99); MPV 11.7 FL (7.4-10.4); NEUT# 0.12 X1000 (1.4-6.5); NEUT% 34.3 % (42.2-75.2); PLT 23 X1000 (130-400); RBC 3.14 XMIL (4.2-5.4); RDW 16.3 % (11.5-14.5); WBC 0.35 X1000 (4.8-10.8)
[2019-05-17] MEDS: GRANIX SUBQ SCH (10:33)
[2019-05-17] MEDS: MYCELEX TROCHE PO SCH ×5 (10:33→20:02)
[2019-05-17] MEDS: PAXIL PO SCH (10:33)
[2019-05-17] MEDS: ZYLOPRIM PO SCH ×2 (10:33→20:02)
[2019-05-17] MEDS: VITAMIN D PO SCH (10:33)
[2019-05-17] MEDS: LR 1,000 ML IV SCH (10:34)
[2019-05-17] MEDS: MIRALAX PO SCH (10:34)
--- NOTE | 2019-05-17 11:04 | INFECTIOUS DISEASE PROGRESS NO ---
DATE: 05/17/2019 PRESENT ILLNESS: The patient is pancytopenic following chemotherapy for leukemia. She has the following infections: 1. Bibasilar pneumonia. 2. Oral candidiasis. 3. Conjunctivitis. 4. Sinusitis. 5. The patient may have a preseptal or an orbital cellulitis. MEDICATIONS: The patient has been on meropenem now for 5 days and daptomycin and AmBisone each for 2 days. Finally, the patient does have TobraDex drops put in the eyes every 6 hours. PHYSICAL EXAMINATION: Vital Signs: Temperature is 99 degrees, pulse 96, respirations 18, blood pressure 152/64. General: This is an ill-appearing elderly female. She also is lethargic. She does not appear to be in any acute distress however. HEENT: There has been a marked decrease in the periorbital swelling on the right side. The patient's right eyes shows swelling, but the patient states that it is feeling better and she can see through it. The patient has a faint white coverage of the tongue. Neck: No pain or stiffness. Lungs: Clear to auscultation. Cardiovascular: Heart rate is regular. Abdomen: Soft and nontender. Extremities: Patient has a PICC in her right arm. The site is not erythematous or bleeding. Neurologic: Patient is lethargic. She did respond to verbal stimuli. She does not have a tremor. LAB AND X-RAY: CBC shows a white count of 350, hemoglobin 12, platelet count is 0.5. GFR is greater than 60. On the CBC, the patient's white blood cell count is 350 with an absolute neutrophil count of 120. The hemoglobin is 8.5. The platelet count is 23,000. ASSESSMENT AND PLAN: The patient has pancytopenia, but it appears that that is getting better. The patient's temperature is down, which I think also is a good sign. The patient is being treated now for the following infections: Bibasilar pneumonia, pansinusitis, oral candidiasis, orbital versus preseptal cellulitis on the right side. Since the patient clinically is getting better and her CBC appears to be recovering from the chemotherapy, I think it would be reasonable to continue treatment with the following medications: Meropenem, AmBisone, and daptomycin. Also, the patient has TobraDex eyedrops put in every 6 hours. COMORBIDITIES: The patient is elderly. She has lymphoma and she is receiving chemotherapy for acute leukemia. 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 cc: Juan Gardner MD MTDD
[2019-05-17] MEDS: CUBICIN 500 MG in NS 100 ML IV SCH (12:40)
--- NOTE | 2019-05-17 14:44 | PROGRESS NOTE ---
DATE: 05/17/2019 INTERVAL HISTORY: No acute events overnight. The patient did have episode of fever with temperature of 100.9 degrees overnight. She was able to sit by the side of the bed today. I encouraged her to take oral nutrition. Her sister is at bedside. We had a discussion about IV nutrition through NG tube. I explained to them that considering her ongoing pancytopenia and thrombocytopenia NG tube could cause esophageal bleeding. I also explained to her that considering ongoing fever and already a fungal infection of mouth and suspicion of fungal infection of the sinuses IV nutrition could increase the risk of further infections. So after discussion with her, we have decided to hold on parenteral nutrition and encourage the oral intake as much as possible. VITALS: Temperature of 97.9 degrees, pulse 103, respiratory rate 18, blood pressure 140/59, saturating 95% room air. PHYSICAL EXAMINATION: Not in any acute distress. HEENT: Her right eyelid and maxillary edema and erythema is decreasing. She has epistaxis affecting right nostril. Oral cavity: She does have a candidiasis affecting tongue. The pharyngeal candidiasis seems to have resolved. Lungs: Air entry bilaterally equal. No wheeze or rhonchi. Inspiratory crackles at bilateral infrascapular region. Cardiovascular: S1, S2 normal. No murmur, rub, or gallop. Tachycardic. Abdomen: Soft, nontender. Extremity: Edema she is alert and oriented x3. Neurological: She is able to move all extremities spontaneously. Her pupils are bilaterally equal reacting to light. LABS: Suggestive of improving WBC count rather slow rate normocytic anemia, persistent thrombocytopenia. Her neutrophil count is improving. Her hypokalemia is currently being repleted. She does have acceptable range of TSH, though it has decreased. MICROBIOLOGY: No positive data. ASSESSMENT AND PLAN: 1. Right orbital preseptal cellulitis, likely secondary from severe right-sided ethmoidal and maxillary sinusitis. Continue broad-spectrum intravenous antibiotics and intravenous antifungals. ENT physician has taken some scrapings from around her middle meatus. The final reports are pending to rule out invasive fungal or mucormycosis sinusitis. 2. Neutropenic fever, bilateral lower lobe pneumonia. Continue intravenous for neutropenic fever, bilateral lower lobe pneumonia and acute sinusitis and acute preseptal cellulitis. Continue intravenous daptomycin, intravenous meropenem and intravenous amphotericin as per Infectious Disease recommendation. 3. Thyrotoxicosis. I am holding her methimazole due to concerns of it contributing to her agranulocytosis since May 14. I will monitor her thyroid function tests periodically. She may need either methimazole or propylthiouracil back depending on her blood tests and symptoms eventually. 4. 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 I will continue Granix for pancytopenia and follow up with blood counts. We will transfuse her as necessary to keep platelet count more than 10,000 or more than 20,000 with bleeding. DISPOSITION: Continue to monitor patient in medical unit. Plan of care discussed with the patient and her sister. Their questions have been answered. cc: Luiz Hillman MD
[2019-05-17] MEDS: D5W IV SCH (15:43)
[2019-05-17] MEDS: AMBISOME IV SCH (15:43)
[2019-05-17] MEDS: D5W 50 ML IV SCH (15:43)
[2019-05-17] MEDS: NORCO-5 PO PRN (18:52)
[2019-05-17] MEDS: REMERON PO SCH (20:01)
[2019-05-18] MEDS: TOBRADEX OPH SUSP BOTH EYES SCH ×4 (05:52→23:10)
[2019-05-18] MEDS: LR 1,000 ML IV SCH (06:23)
[2019-05-18] MEDS: PRILOSEC PO SCH (06:23)
[2019-05-18 07:42] LABS: HEMATOCRIT 24.3 % (37.0-47.0); HEMOGLOBIN 8.2 g/dL (12.0-16.0); IMM GRAN# 0.04 X1000 (0.0-0.04); IMM GRAN% 8.7 % (0.0-0.5); LYMPH# 0.26 X1000 (1.2-3.4); LYMPH% 56.5 % (20.5-51.1); MCH 28.4 PG (27-31); MCHC 33.7 g/dL (33-37); MCV 84.1 FL (81-99); MONO# 0.01 X1000 (0.11-0.59); MONO% 2.2 % (1.7-9.3); NEUT# 0.15 X1000 (1.4-6.5); NEUT% 32.6 % (42.2-75.2); PLT 11 X1000 (130-400); RBC 2.89 XMIL (4.2-5.4); RDW 16.3 % (11.5-14.5); WBC 0.46 X1000 (4.8-10.8)
[2019-05-18] MEDS ORDERED: NS 500 ML IV ONE (07:47)
--- NOTE | 2019-05-18 07:50 | Diag Imaging Result Doc PS360 ---
CHEST-1 VIEW - 05/18/2019 INDICATION: pneumonia COMPARISON: 05/14/2019 FINDINGS: Stable left PICC line in good position. Stable moderately low lung volumes. Stable significant retrocardiac left lower lobe atelectasis or infiltrate. Stable patchy infiltrate or atelectasis at the right lung base as well. Heart size remains normal. IMPRESSION: No change from prior. Electronically signed by Tyler Babin 05/18/2019 7:48 AM
[2019-05-18] MEDS: MERREM 2 GM in NS 100 ML IV SCH ×3 (09:12→23:03)
[2019-05-18] MEDS: ZYLOPRIM PO SCH ×2 (09:20→23:02)
[2019-05-18] MEDS: MYCELEX TROCHE PO SCH ×3 (09:20→14:07)
[2019-05-18] MEDS: VITAMIN D PO SCH (09:20)
[2019-05-18] MEDS: PAXIL PO SCH (09:20)
[2019-05-18 09:48] LABS: AGAP 11; BUN 23 mg/dL (8-22); CALCIUM 8.1 mg/dL (8.8-10.2); CHLORIDE 97 mmol/L (98-107); COSMO 278; CREATININE 0.4 mg/dL (0.5-0.9); ESTIMATED GFR > 60; GLUCOSE 116 mg/dL (70-104); MAGNESIUM 1.8 mg/dL (1.5-2.7); POTASSIUM 2.9 mmol/L (3.5-5.1); SODIUM 137 mmol/L (136-145); TCO2 29 mmol/L (25-35)
[2019-05-18] MEDS: GRANIX SUBQ SCH (10:44)
[2019-05-18] MEDS: CUBICIN 500 MG in NS 100 ML IV SCH (12:51)
[2019-05-18] MEDS: AMBISOME IV SCH (14:02)
[2019-05-18] MEDS: D5W IV SCH (14:02)
[2019-05-18] MEDS: D5W 50 ML IV SCH (14:05)
--- NOTE | 2019-05-18 16:26 | INFECTIOUS DISEASE PROGRESS NO ---
DATE: 05/18/2019 PRESENT ILLNESS: The patient is pancytopenic following chemotherapy. She has the following infections: 1. Bibasilar pneumonia. 2. Oral candidiasis. 3. Conjunctivitis. 4. Sinusitis. 5. Preseptal or orbital cellulitis. MEDICATIONS: The patient has been on meropenem now for 6 days, daptomycin, and AmBisone for 3 days with each antimicrobial agent and finally TobraDex eyedrops. PHYSICAL EXAMINATION: Vital Signs: Temperature is 99 degrees, pulse 96, respirations 16, blood pressure 124/41. General: This is an ill-appearing elderly female. She actually looks better. There is much less swelling on her face and she does not seem quite as lethargic. She still however is not eating hardly anything. Head, eyes, ears, nose, and throat: There is decreased swelling in the right periorbital area. Also the right eye is less swollen and it is draining less. She can see through it. Neck: No stiffness. Lungs: Clear to auscultation. Cardiovascular: Heart rate is regular. Abdomen: Soft and nontender. Extremities: The patient has a PICC in her right arm. The site is not purulent or bleeding. LAB AND X-RAY: Lab for today shows white count 460, hemoglobin 8.2, platelet count 11,000. Patient's creatinine is 0.4. GFR is greater than 60. The chest x-ray today shows significant retrocardiac left lower lobe atelectasis or infiltrate and stable patchy infiltrate and atelectasis in the right lung. ASSESSMENT AND PLAN: The patient's blood counts are recovering. I plan on continuing the same antimicrobial agents for her pneumonia, pansinusitis, and orbital versus preseptal cellulitis. COMORBIDITIES: The patient is elderly. She has lymphoma and she is on chemotherapy for leukemia. She previous had a splenectomy. cc: Juan Gardner MD
[2019-05-18] MEDS: NORCO-5 PO PRN (16:28)
[2019-05-18] MEDS: MYCOSTATIN SUSP PO SCH ×2 (16:28→23:15)
--- NOTE | 2019-05-18 19:04 | HEMO/ONC PROGRESS NOTE ---
DATE: 05/18/2019 Ms. Fatima is really clinically overall stable. Her white count seems to be trending upward, though very slowly. We would still encourage monitoring her throughout the holidays and seeing where she is at on 05/21/2019. We did briefly discuss patient's wishes today, and it seems like she would like to see what her counts do over the next couple days. We will be back on 05/21/2019 to review those counts. Continue to transfuse as needed. Agree with platelet transfusion today at 11,000. She will continue with Granix daily as well. Again, her ANC is up ever so slightly to 150. Dictated by DALILA Duncan for Ld Pappas MD cc: Ld Pappas MD
[2019-05-18 19:35] LABS: MPV 9.5 FL (7.4-10.4)
--- NOTE | 2019-05-18 19:55 | PROGRESS NOTE ---
DATE: 05/18/2019 INTERVAL HISTORY: No acute events overnight. SUBJECTIVE: Ms. Fatima states she is feeling the same. No new complaints. She denies any chest pain, shortness of breath or cough and denies any nausea, vomiting, abdominal pain. Her daughter is at bedside. Ms. Fatima was able to sit at the side of the bed. She is still having headache. VITALS: Temperature of 99.2 degrees, pulse 98, respiratory rate 16, blood pressure 130/52, saturating 95% on room air. PHYSICAL EXAMINATION: General: She is in mild distress because of headache. HEENT: Oral cavity is moist. She still has oral candidiasis affecting tongue. Her right orbital swelling and the conjunctival swelling has significantly improved. There is no erythema anymore. Lungs: Air entry bilaterally equal. No wheeze or rhonchi. Inspiratory crackles bilateral infrascapular region. Cardiovascular: S1, S2 normal. No murmur or gallop. Abdomen: Soft, nontender. Extremity: Mild lower extremity edema. Neurologic: She is alert and oriented x3. 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 She is only eating bites of her food. LABS: Suggestive of improvement in WBC, stable hemoglobin, thrombocytopenia for which she is receiving platelet transfusion. Electrolytes suggest hypokalemia, which is currently being repleted. She has improvement in her BUN, stable creatinine. Microbiology: No new data. No new imaging, except chest x-ray which suggests low lung volumes and bilateral lower lung infiltrate. ASSESSMENT AND PLAN: 1. Right preseptal cellulitis likely secondary from severe right-sided ethmoidal and maxillary sinusitis. Continue broad-spectrum IV antibiotics and IV antifungals. ENT physician has taken some scrapings from around her middle meatus. Follow up the report of it to rule out invasive fungal or mucormycosis sinusitis. Previously, I had contacted launch operator at [facility]'s clinic and he had recommended nonsurgical management with intravenous antibiotics. 2. Neutropenic fever, bilateral lower lobe pneumonia. Continue neutropenic precautions, broad- spectrum intravenous antibiotics including daptomycin and intravenous meropenem, intravenous amphotericin B liposomal as per Infectious Disease recommendation. 3. History of thyrotoxicosis. I am holding methimazole due to concerns of it contributing to her agranulocytosis. I will continue to recheck her thyroid function tests periodically. Outpatient records from her regular provider's office are awaited regarding her baseline thyroid disease. 4. History of diffuse large B-cell lymphoma, status post R-CHOP in October 2016; acute myeloid leukemia, currently on venetoclax and Dacogen; Heme-Onc on board. Her chemotherapy is currently on hold. Continue Granix for pancytopenia and transfuse to keep platelet count more than 10,000 or more than 20,000 if she was bleeding. DISPOSITION: She has a rather slow improvement in her blood counts. She is still at risk of developing neutropenic complications. She previously had splenectomy. Her condition is sick. I discussed plan of care with the patient and her daughter today who is at bedside. All of their questions have been answered. cc: Luiz Hillman MD MTDHansel
[2019-05-18] MEDS: POTASSIUM CHLORIDE 20 MEQ/SWI 20 MEQ/100 ML IVPB IV SCH (22:57)
[2019-05-18] MEDS: REMERON PO SCH (23:02)
[2019-05-18] MEDS: KLOR-CON PO SCH (23:03)
[2019-05-19] MEDS: KLOR-CON PO SCH (00:13)
[2019-05-19] MEDS: PRILOSEC PO SCH ×2 (00:13→06:17)
[2019-05-19] MEDS: POTASSIUM CHLORIDE 20 MEQ/SWI 20 MEQ/100 ML IVPB IV SCH (00:39)
[2019-05-19] MEDS: NORCO-5 PO PRN ×2 (01:24→09:44)
[2019-05-19] MEDS: TOBRADEX OPH SUSP BOTH EYES SCH ×4 (02:28→23:53)
[2019-05-19] MEDS: LR 1,000 ML IV SCH (05:04)
[2019-05-19 07:47] LABS: HEMATOCRIT 21.7 % (37.0-47.0); HEMOGLOBIN 7.2 g/dL (12.0-16.0); LYMPH# 0.32 X1000 (1.2-3.4); LYMPH% 54.2 % (20.5-51.1); MCH 27.4 PG (27-31); MCHC 33.2 g/dL (33-37); MCV 82.5 FL (81-99); MONO# 0.01 X1000 (0.11-0.59); MONO% 1.7 % (1.7-9.3); MPV 10.4 FL (7.4-10.4); NEUT# 0.26 X1000 (1.4-6.5); NEUT% 44.1 % (42.2-75.2); PLT 33 X1000 (130-400); RBC 2.63 XMIL (4.2-5.4); RDW 15.9 % (11.5-14.5); WBC 0.59 X1000 (4.8-10.8)
[2019-05-19] MEDS: ZYLOPRIM PO SCH ×2 (09:44→23:54)
[2019-05-19] MEDS: MERREM 2 GM in NS 100 ML IV SCH ×3 (09:44→23:51)
[2019-05-19] MEDS: PAXIL PO SCH (09:45)
[2019-05-19] MEDS: VITAMIN D PO SCH (09:45)
[2019-05-19] MEDS: MYCOSTATIN SUSP PO SCH ×4 (09:45→23:54)
[2019-05-19] MEDS: GRANIX SUBQ SCH (10:38)
[2019-05-19] MEDS: ZOFRAN PO PRN (10:38)
[2019-05-19] MEDS: CUBICIN 500 MG in NS 100 ML IV SCH (12:10)
[2019-05-19] MEDS: D5W 50 ML IV SCH (13:50)
[2019-05-19] MEDS: D5W IV SCH (13:50)
[2019-05-19] MEDS: AMBISOME IV SCH (13:50)
--- NOTE | 2019-05-19 14:25 | INFECTIOUS DISEASE PROGRESS NO ---
DATE: 05/19/2019 PRESENT ILLNESS: The patient has the following infections. 1. Bibasilar pneumonia. 2. Oral candidiasis. 3. Conjunctivitis. 4. Sinusitis. 5. Preseptal or orbital cellulitis. MEDICATIONS: The patient has been on meropenem for 7 days, daptomycin and ampicillin for 4 days, and TobraDex eye drops. PHYSICAL EXAMINATION: Vital Signs: Temperature is 98.5 degrees, pulse 89, respirations 18, blood pressure 149/64. General: This is an ill-appearing, elderly female. She is in no acute distress. HEENT: There has been almost complete resolution of the right eye infections. Most all of the swelling on the outside has gone and the right eye is less swollen. There is no erythema and there is hardly any drainage coming from the eye. Neck: No stiffness. Lungs: Clear to auscultation. Cardiovascular: Heart rate is regular. Abdomen: Soft and nontender. Extremities: The patient has a PICC in the right arm. The site is not purulent or erythematous. LAB AND X-RAY: Chest x-ray shows bilateral infiltrates/atelectasis. CBC shows a white count of 590 with an absolute neutrophil count of 260, hemoglobin 7.2, platelet count is 33,000. Creatinine is 0.4. GFR is greater than 60. ASSESSMENT AND PLAN: The patient is pancytopenic following chemotherapy for leukemia. She has the infections mentioned above, namely pneumonia, oral candidiasis, conjunctivitis, sinusitis, and preseptal or orbital cellulitis. I plan on continuing the current antimicrobial agents consisting of AmBisome, daptomycin, meropenem, nystatin swish and swallow, and TobraDex eye drops. COMORBIDITIES: The patient is elderly. She also has a lymphoma and she is receiving chemotherapy for leukemia. The patient previously had a splenectomy. cc: Juan Gardner MD
--- NOTE | 2019-05-19 15:40 | Diag Imaging Result Doc PS360 ---
CT MAXILLOFACIAL(SINUS) W/O CO - 05/19/2019 INDICATION: sinusitis TECHNIQUE: COMPARISON: 05/14/2019 FINDINGS: There is severe diffuse sinusitis. There is no change from prior. IMPRESSION: Severe diffuse sinusitis with no change in the past five days. Electronically signed by Tyler Babin 05/19/2019 3:38 PM
--- NOTE | 2019-05-19 19:05 | PROGRESS NOTE ---
DATE: 05/19/2019 SUBJECTIVE: The patient is resting comfortably. The patient has been having serosanguineous discharge from her right nostril. Also, the patient has not been eating well. OBJECTIVE: Vital Signs: Temperature 98.3, blood pressure 153/63, heart rate 90, respirations 20, O2 saturation 99% on room air. General: This is an elderly female lying in bed in no acute distress. Heart: S1, S2 normal. Regular rate and rhythm. Lungs: Equal air entry bilaterally. No wheezing. No rales. Abdomen: Positive bowel sounds. Soft, nontender, nondistended. Extremities: No edema, no cyanosis. Neurologic: The patient is alert and oriented x3. LABS: White blood cell count 0.5, hemoglobin 7.2, hematocrit 21, platelets 33. ANC 0.2. ASSESSMENT AND PLAN: 1. Bilateral lobe pneumonia. Continue with the current antibiotic regimen as directed by Dr. Gardner. 2. Severe pansinusitis. Continue with the current treatment regimen as directed by Dr. Gardner. 3. Thrush. Continue with Nystatin swish and swallow. 4. Neutropenia. Continue on Granix. The patient will remain on neutropenic precautions. 5. Pancytopenia. Continue to monitor the counts and transfuse p.r.n. 6. Acute myeloid leukemia. Aware. Oncology is following. 7. Severe protein calorie malnutrition. We will switch the patient to Marinol. Continue with Ensure. 8. Hyperthyroidism. Continue on Tapazole. 9. History of diffuse large B-cell lymphoma. Aware. 9. Orbital cellulitis. Improving. Continue on antibiotic therapy. cc: Sapphire Keating MD [facility]
[2019-05-19] MEDS: MARINOL PO SCH (23:50)
[2019-05-19] MEDS: REMERON PO SCH (23:54)
[2019-05-20] MEDS: TOBRADEX OPH SUSP BOTH EYES SCH ×4 (02:34→23:17)
[2019-05-20] MEDS: TYLENOL PO PRN (03:36)
[2019-05-20] MEDS: PRILOSEC PO SCH (06:59)
[2019-05-20 07:30] LABS: HEMATOCRIT 20.7 % (37.0-47.0); HEMOGLOBIN 6.9 g/dL (12.0-16.0); LYMPH# 0.35 X1000 (1.2-3.4); LYMPH% 45.5 % (20.5-51.1); MCH 27.6 PG (27-31); MCHC 33.3 g/dL (33-37); MCV 82.8 FL (81-99); MONO# 0.01 X1000 (0.11-0.59); MONO% 1.3 % (1.7-9.3); MPV 11.2 FL (7.4-10.4); NEUT% 53.2 % (42.2-75.2); RDW 15.9 % (11.5-14.5); WBC 0.77 X1000 (4.8-10.8)
[2019-05-20] MEDS ORDERED: NS 500 ML IV ONE ×2 (07:31→07:46)
[2019-05-20 07:42] LABS: NEUT# 0.41 X1000 (1.4-6.5); PLT 11 X1000 (130-400)
[2019-05-20 07:57] LABS: AGAP 7; ALB/GLOB RATIO 0.6; ALBUMIN 1.7 g/dL (3.5-5.0); ALKALINE PHOSPHATASE 262 U/L (32-104); BUN 18 mg/dL (8-22); CALCIUM 8.1 mg/dL (8.8-10.2); CHLORIDE 100 mmol/L (98-107); COSMO 275; CREATININE 0.5 mg/dL (0.5-0.9); ESTIMATED GFR > 60; GLUCOSE 113 mg/dL (70-104); GOT 16 U/L (10-30); GPT 25 U/L (10-36); MAGNESIUM 1.7 mg/dL (1.5-2.7); PHOSPHORUS 3.1 mg/dL (2.7-4.5); POTASSIUM 3.2 mmol/L (3.5-5.1); SODIUM 136 mmol/L (136-145); TCO2 29 mmol/L (25-35); TOTAL BILIRUBIN 0.96 mg/dL (0.20-1.00); TOTAL PROTEIN 4.6 g/dL (6.3-8.3)
[2019-05-20] MEDS: MERREM 2 GM in NS 100 ML IV SCH ×2 (08:02→23:16)
[2019-05-20 08:13] LABS: ANISOCYTOSIS 3+; HYPOCHROM 4+; LYMPHS 65 % (21-51); NRBC 2 % (0-0); POIKILOCYTOSIS 3+; POLYCHROM 1+; SEGS 35 % (42-75); TARGET CELLS 1+
[2019-05-20] MEDS ORDERED: KLOR-CON PO ONE (08:23)
[2019-05-20 08:52] LABS: FREE T4 0.76 ng/dL (0.93-1.70); TSH 0.47 uIUmL (0.27-4.20)
[2019-05-20] MEDS: VITAMIN D PO SCH (10:51)
[2019-05-20] MEDS: MYCOSTATIN SUSP PO SCH ×4 (10:51→23:03)
[2019-05-20] MEDS: PAXIL PO SCH (10:52)
[2019-05-20] MEDS: ZYLOPRIM PO SCH ×2 (10:52→23:02)
[2019-05-20] MEDS: MARINOL PO SCH ×2 (10:52→23:02)
[2019-05-20] MEDS: GRANIX SUBQ SCH (11:20)
[2019-05-20] MEDS: CUBICIN 500 MG in NS 100 ML IV SCH (13:26)
[2019-05-20] MEDS: D5W 50 ML IV SCH (13:26)
[2019-05-20] MEDS: D5W IV SCH (13:27)
[2019-05-20] MEDS: AMBISOME IV SCH (13:27)
--- NOTE | 2019-05-20 15:33 | PROGRESS NOTE ---
DATE: 05/20/2019 SUBJECTIVE: The patient is resting comfortably. She is still not eating very much. She also has swelling involving her right arm. OBJECTIVE: Vital Signs: Temperature 97.3 degrees, blood pressure 146/62, heart rate 96, respirations 18, O2 saturation 96% on room air. General: This is an elderly female lying in bed in no acute distress. Heart: S1, S2 normal. Tachycardic. Lungs: Equal air entry bilaterally. No crackles. No rales. Abdomen: Positive bowel sounds. Soft, nontender, nondistended. Extremities: No edema, no cyanosis. Neurologic: The patient is alert and oriented x3. LABS: White blood cell count 0.7, hemoglobin 6.9, hematocrit 20, platelets 11. ANC 0.41. Sodium 136, potassium 3.2, albumin 1.7. BUN 18, creatinine 0.5. ASSESSMENT AND PLAN: 1. Bilateral lobe pneumonia. Continue on the current antibiotic regimen. 2. Severe pansinusitis. Continue with antibiotic therapy as directed by Dr. Gardner. 3. Neutropenia. Continue on Granix. Continue with neutropenic precautions. 4. Pancytopenia. We will transfuse 1 unit of packed red blood cells and 1 unit of platelets today. 5. Acute myeloid leukemia. Aware. 6. Severe protein calorie malnutrition. Continue on Marinol and Ensure. 7. Hyperthyroidism. Continue on Tapazole. 8. History of diffuse large B-cell lymphoma. Aware. 9. Right upper extremity swelling. We will order a right upper extremity venous Doppler to rule out pulmonary embolism. 10. Orbital cellulitis. Improving. Continue with antibiotic therapy. cc: MD FANY Perry
[2019-05-20] MEDS ORDERED: LASIX IV ONE (17:00)
[2019-05-20] MEDS: LR 1,000 ML IV SCH (18:07)
[2019-05-20] MEDS: REMERON PO SCH (23:02)
[2019-05-20] MEDS: FIORICET PO PRN (23:03)
[2019-05-20] MEDS: ZOFRAN PO PRN (23:04)
[2019-05-21] MEDS: MERREM 2 GM in NS 100 ML IV SCH ×3 (05:41→21:04)
[2019-05-21] MEDS: LR 1,000 ML IV SCH ×2 (05:42)
[2019-05-21] MEDS: TOBRADEX OPH SUSP BOTH EYES SCH ×4 (05:42→21:06)
[2019-05-21] MEDS: PRILOSEC PO SCH (06:14)
[2019-05-21 07:30] LABS: HEMATOCRIT 25.8 % (37.0-47.0); HEMOGLOBIN 8.7 g/dL (12.0-16.0); IMM GRAN# 0.19 X1000 (0.0-0.04); IMM GRAN% 17.1 % (0.0-0.5); LYMPH# 0.45 X1000 (1.2-3.4); LYMPH% 40.5 % (20.5-51.1); MCH 27.7 PG (27-31); MCHC 33.7 g/dL (33-37); MCV 82.2 FL (81-99); MONO# 0.03 X1000 (0.11-0.59); MONO% 2.7 % (1.7-9.3); NEUT% 39.7 % (42.2-75.2); RBC 3.14 XMIL (4.2-5.4); RDW 16.1 % (11.5-14.5); WBC 1.11 X1000 (4.8-10.8)
[2019-05-21 07:32] LABS: NEUT# 0.44 X1000 (1.4-6.5); PLT 37 X1000 (130-400)
[2019-05-21 07:39] LABS: AGAP 10; BUN 18 mg/dL (8-22); CALCIUM 8.7 mg/dL (8.8-10.2); CHLORIDE 102 mmol/L (98-107); COSMO 286; CREATININE 0.5 mg/dL (0.5-0.9); ESTIMATED GFR > 60; GLUCOSE 118 mg/dL (70-104); MAGNESIUM 1.7 mg/dL (1.5-2.7); POTASSIUM 3.3 mmol/L (3.5-5.1); SODIUM 142 mmol/L (136-145); TCO2 30 mmol/L (25-35)
[2019-05-21] MEDS: VITAMIN D PO SCH (09:50)
[2019-05-21] MEDS: MYCOSTATIN SUSP PO SCH ×4 (09:50→21:08)
[2019-05-21] MEDS: GRANIX SUBQ SCH (09:50)
[2019-05-21] MEDS: PAXIL PO SCH (09:50)
[2019-05-21] MEDS: MARINOL PO SCH ×2 (09:50→21:05)
[2019-05-21] MEDS: ZYLOPRIM PO SCH ×2 (09:51→21:04)
[2019-05-21] MEDS: CUBICIN 500 MG in NS 100 ML IV SCH (12:44)
[2019-05-21] MEDS: D5W IV SCH (12:53)
[2019-05-21] MEDS: AMBISOME IV SCH (12:53)
[2019-05-21] MEDS: D5W 50 ML IV SCH (12:54)
--- NOTE | 2019-05-21 14:55 | INFECTIOUS DISEASE PROGRESS NO ---
DATE: 05/21/2019 PRESENT ILLNESS: The patient is being treated for the following infections: 1. Bibasilar pneumonia. 2. Oral candidiasis. 3. Conjunctivitis. 4. Sinusitis. 5. Preseptal or orbital cellulitis. MEDICATIONS: The patient has been on meropenem for 8 days, daptomycin. The daptomycin and AmBisome for 5 days and TobraDex eyedrops and nystatin swish and swallow. PHYSICAL EXAMINATION: Vital Signs: Temperature is 98.6 degrees, pulse 99, respirations 18, blood pressure is 163/77. General: This is an ill-appearing elderly female. She is in no acute distress. Head/eyes/ears/nose/throat: The patient's swelling about the right eye is almost completely gone. The right eye is not erythematous or draining. Neck: No pain with movement. Lungs: Clear to auscultation. Cardiovascular: Heart rate is regular. Abdomen: Soft and nontender. Extremities: The patient has a PICC in the right arm. The site is not bleeding or purulent. Neurologic: The patient is alert. She is able to talk in a coherent fashion. There is no tremor. LAB AND X-RAY: A repeat CT maxillofacial scan showed still the presence of severe sinusitis which is diffuse. The CBC shows a white count of 1110 with an absolute neutrophil count of 400, hemoglobin is 8.7, platelet count is 37,000. Creatinine 0.5, GFR is greater than 60. ASSESSMENT AND PLAN: The patient is pancytopenic following chemotherapy for leukemia. She is being treated with antimicrobial agents for bibasilar pneumonia, oral candidiasis, conjunctivitis which appears to have cleared, sinusitis, and preseptal orbital cellulitis also appears to be clearing up COMORBIDITIES: The patient is elderly. She has a lymphoma and unfortunately she has developed leukemia for which she is receiving chemotherapy. 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 cc: Juan Gardner MD
--- NOTE | 2019-05-21 18:07 | PROGRESS NOTE ---
DATE: 05/21/2019 SUBJECTIVE: The patient is resting comfortably in bed. The patient had a period of confusion yesterday. OBJECTIVE: Vital Signs: Temperature 98.4 degrees, blood pressure 165/60, heart rate 87, respirations 20, O2 saturation is 98% on room air. General: This is a chronically ill-appearing, elderly female lying in bed, in no acute distress. Heart: S1, S2. Normal. Lungs: Equal air entry bilaterally. No wheezing. No rales. Abdomen: Positive bowel sounds. Soft, nontender, nondistended. Extremities: No edema. No cyanosis. Neurologic: The patient is alert and oriented x3. LABS: White blood cell count 1.1, hemoglobin 8.7, hematocrit 25, platelets 37,000. Sodium 142, potassium 3.3, chloride 102, CO2 30, BUN 18, creatinine 0.5, glucose 118. ASSESSMENT AND PLAN: 1. Bilateral lobe pneumonia. Continue with antibiotic therapy. 2. Severe pansinusitis. Continue with the current treatment regimen. 3. Neutropenia. Unchanged. Continue on Granix and neutropenic precautions. 4. Pancytopenia. Continue to monitor closely and transfuse as needed. 5. Acute myeloid leukemia. Aware. 6. Hypertension. We will start the patient on Norvasc. 7. Severe protein calorie malnutrition. Continue to encourage the patient to eat. We will also continue on Marinol and Ensure. 8. Hyperthyroidism. Continue on Tapazole. 9. History of B-cell lymphoma. Aware. 10. Right upper extremity swelling. A venous Doppler of the right upper extremity has been ordered to rule out DVT. 11. Orbital cellulitis. Improved. Continue with antibiotic therapy and the antibiotic eye drops. cc: Sapphire Keating MD MTDD
--- NOTE | 2019-05-21 19:17 | HEMO/ONC PROGRESS NOTE ---
DATE: 05/21/2019 SUBJECTIVE: Ms. Fatima is lying in her hospital bed. Her sister is at bedside. The patient reports that she is feeling better. OBJECTIVE: Vital Signs: Temperature 98.6 degrees, heart rate 99, respirations 18, blood pressure 163/77, O2 saturation 95% on room air. LABORATORY: White blood cells are 1.11, hemoglobin 8.7, platelet count 37,000, ANC is 440. PHYSICAL EXAMINATION: Cardiovascular: S1, S2 heard. No murmurs, gallops, rubs appreciated. Respiratory: Chest is clear. Gastrointestinal: Abdomen is soft with normoactive bowel sounds. Musculoskeletal: No obvious bony abnormalities. Extremities: Some trace bilateral lower extremity edema. Head: The right eye swelling has improved. ASSESSMENT AND PLAN: 1. Acute myeloid leukemia. The patient's treatment is currently on hold. She will continue to hold until she follows back up with us in the office. We will discuss treatment plans including the possibility of transitioning to hospice when she returns to our office. The hope is that she will be able to leave here in the next 1 to 2 days. Her counts are not likely to improve much beyond their current level given her underlying disease. Clinically, she is quite improved. 2. Bilateral lobe pneumonia. She is on an antibiotic regimen per Dr. Gardner. 3. Severe pansinusitis. Again, on antibiotics per Dr. Gardner. 4. Pancytopenia. This is secondary to her underlying disease as well as previous treatment. However, her treatment has been held for some time now and the effects that we are seeing are likely just her underlying disease at this point. She is still on Granix while she is in the hospital. Continue to transfuse as needed. 5. Orbital cellulitis. This seems to be improving. DISPOSITION: From our standpoint, we would favor the patient leaving here either tomorrow or the day after. She will follow up with us in the office and we will talk about proceeding with further treatment versus hospice. She will also need lab checks regularly in our office, which we will also get set up once she is discharged. Dictated by DALILA Duncan for Cindi Koroma MD cc: Cindi Koroma MD I have seen and examined the patient and the above note reflects my history, physical exam, assessment and plan. Cindi SOARES
[2019-05-21] MEDS: FIORICET PO PRN (21:04)
[2019-05-21] MEDS: REMERON PO SCH (21:05)
[2019-05-21] MEDS: NORVASC PO SCH (21:05)
[2019-05-22] MEDS: TOBRADEX OPH SUSP BOTH EYES SCH ×4 (03:32→21:58)
--- NOTE | 2019-05-22 06:29 | Diag Imaging Result Doc PS360 ---
EXAM: CHEST-1 VIEW HISTORY: pneumonia TECHNIQUE: Single view COMPARISON: 05/18/2019 FINDINGS: Poor inspiratory effort. There are bilateral infiltrates. These are more prominent than on the prior study. Small left pleural effusion with basilar atelectasis. No change in the left-sided PICC line. IMPRESSION: Interval worsening Electronically signed by Ha Guan 05/22/2019 6:26 AM
[2019-05-22] MEDS: PRILOSEC PO SCH (06:30)
[2019-05-22] MEDS: MERREM 2 GM in NS 100 ML IV SCH ×3 (06:30→20:35)
[2019-05-22] MEDS: LR 1,000 ML IV SCH ×2 (06:30→21:58)
[2019-05-22 07:51] LABS: BASO# 0.01 X1000 (0.0-0.2); BASO% 0.8 % (0.0-0.8); HEMATOCRIT 24.2 % (37.0-47.0); LYMPH# 0.38 X1000 (1.2-3.4); LYMPH% 29.5 % (20.5-51.1); MCH 27.4 PG (27-31); MCHC 33.1 g/dL (33-37); MCV 82.9 FL (81-99); MONO# 0.03 X1000 (0.11-0.59); MONO% 2.3 % (1.7-9.3); NEUT# 0.87 X1000 (1.4-6.5); NEUT% 67.4 % (42.2-75.2); RBC 2.92 XMIL (4.2-5.4); WBC 1.29 X1000 (4.8-10.8)
[2019-05-22 07:53] LABS: PLT 11 X1000 (130-400)
[2019-05-22 08:24] LABS: AGAP 8; BUN 19 mg/dL (8-22); CHLORIDE 101 mmol/L (98-107); CK TOTAL < 7 U/L (24-173); COSMO 281; CREATININE 0.4 mg/dL (0.5-0.9); ESTIMATED GFR > 60; GLUCOSE 112 mg/dL (70-104); MAGNESIUM 1.6 mg/dL (1.5-2.7); SODIUM 139 mmol/L (136-145); TCO2 30 mmol/L (25-35)
[2019-05-22] MEDS ORDERED: NS 500 ML IV ONE (08:58)
[2019-05-22] MEDS: GRANIX SUBQ SCH (09:40)
[2019-05-22] MEDS: MYCOSTATIN SUSP PO SCH ×4 (09:40→20:35)
[2019-05-22] MEDS: ZYLOPRIM PO SCH ×2 (09:40→20:35)
[2019-05-22] MEDS: PAXIL PO SCH (09:40)
[2019-05-22] MEDS: NORVASC PO SCH ×2 (09:40→20:34)
[2019-05-22] MEDS: VITAMIN D PO SCH (09:40)
[2019-05-22] MEDS: MARINOL PO SCH ×2 (09:40→20:35)
[2019-05-22] MEDS ORDERED: MAGNESIUM SULFATE 2 GM/S.W.I. 2 GM/50 ML IVPB IV ONE (10:16)
[2019-05-22] MEDS ORDERED: KLOR-CON PO ONE (10:16)
[2019-05-22] MEDS: CUBICIN 500 MG in NS 100 ML IV SCH (11:35)
[2019-05-22] MEDS: D5W 50 ML IV SCH (13:53)
[2019-05-22] MEDS: AMBISOME IV SCH (13:54)
[2019-05-22] MEDS: D5W IV SCH (13:54)
--- NOTE | 2019-05-22 15:04 | PROGRESS NOTE ---
DATE: 05/22/2019 SUBJECTIVE: The patient is resting comfortably in bed. She states that she feels okay. She states that she has no appetite and has not really been eating at all. OBJECTIVE: Vital Signs: Temperature 99 degrees, blood pressure 130/61, heart rate 101, respirations 20, O2 saturation 94% on room air. General: This is a chronically ill-appearing elderly female lying in bed in no acute distress. Heart: S1, S2 normal. Tachycardic. Lungs: Equal air entry bilaterally. No wheezing. No rales. Abdomen: Positive bowel sounds. Soft, nontender, nondistended. Extremities: No edema, no cyanosis. Neurologic: The patient is alert and oriented x4. LABORATORY DATA: White blood cell count 1.28, ANC 0.87, platelets 11,000, hematocrit 24. Sodium 139, potassium 3, chloride 101, CO2 30, BUN 19, creatinine 0.4, glucose 112, magnesium 1.6. Chest x-ray shows interval worsening of the bilateral infiltrates. ASSESSMENT AND PLAN: 1. Bilateral lobe pneumonia. The x-ray done today shows worsening. Continue with antibiotics as directed by Dr. Gardner. 2. Severe pansinusitis. Continue with antibiotic treatments. 3. Neutropenia. Slowly improving. The patient's ANC today is 870. Continue with Granix and neutropenic precautions. 4. Pancytopenia. The patient will receive 2 units of platelets today. 5. Acute myeloid leukemia. Aware. The patient will follow up with Dr. Koroma as outpatient to discuss the treatment plan going forward. 6. Hypertension. Stable. Continue on Norvasc. 7. Severe protein calorie malnutrition. Continue on Marinol and Ensure. 8. Hyperthyroidism. Continue on Tapazole. 9. History of B-cell lymphoma. Aware. 10. Orbital cellulitis. Improved. Continue with antibiotic therapy. cc: Sapphire Keating MD [facility]
--- NOTE | 2019-05-22 15:21 | INFECTIOUS DISEASE PROGRESS NO ---
DATE: 05/22/2019 PRESENT ILLNESS: The patient has the following infections: 1. Bibasilar pneumonia. 2. Oral candidiasis. 3. Conjunctivitis. 4. Sinusitis. 5. Preseptal or orbital cellulitis. MEDICATIONS: The patient has been on meropenem for 9 days. The patient has been on daptomycin and AmBisone for 6 days. The patient also is receiving TobraDex eyedrops and nystatin swish and swallow for her oral candidiasis. PHYSICAL EXAMINATION: Vital Signs: Temperature is 99 degrees, pulse 101, respirations 20, blood pressure 130/61. General: This is an ill-appearing elderly female. She is in no acute distress. Head/eyes/ears/nose/throat: The patient's swelling of her face has gone. There is very little erythema of the conjunctiva of both eyes. There is a serosanguineous drainage coming from the patient's right nostril. Neck: There is no pain with movement. Lungs: Clear to auscultation. Cardiovascular: Heart rate is regular. Abdomen: Soft and nontender. Extremities: Patient has a PICC in the right arm. The site is not erythematous or tender. Neurologic: The patient is lethargic, but she is able to become alert and can carry on a conversation. LAB AND X-RAY: CBC shows a white count of 1290 with an absolute neutrophil count of 800. CK is less than 7. Creatinine is 0.4. GFR is greater than 60. Procalcitonin is 0.83 which translates into the patient very likely having pneumonia. Chest x-ray shows bilateral infiltrates. ASSESSMENT AND PLAN: Patient remains pancytopenic from chemotherapy, although it appears her white blood cell count, hemoglobin and platelets are coming up slowly. My plan is to continue treatment for her infections, namely pneumonia, oral candidiasis, conjunctivitis, sinusitis, and preseptal or orbital cellulitis with her current agents, which are meropenem, daptomycin, AmBisone, TobraDex eyedrops and nystatin swish and swallow. COMORBIDITIES: For this patient include that she is elderly. She has a lymphoma and unfortunately, she has developed leukemia for which she is receiving chemotherapy. 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 cc: MD FANY Goyal
[2019-05-22] MEDS: REMERON PO SCH (20:34)
[2019-05-22] MEDS: TYLENOL PO PRN (20:38)
[2019-05-23] MEDS: TOBRADEX OPH SUSP BOTH EYES SCH ×4 (01:57→21:17)
[2019-05-23] MEDS: PRILOSEC PO SCH (06:09)
[2019-05-23] MEDS: MERREM 2 GM in NS 100 ML IV SCH ×3 (06:09→21:17)
[2019-05-23 07:48] LABS: BASO# 0.01 X1000 (0.0-0.2); BASO% 0.6 % (0.0-0.8); HEMATOCRIT 23.2 % (37.0-47.0); HEMOGLOBIN 7.7 g/dL (12.0-16.0); IMM GRAN# 0.26 X1000 (0.0-0.04); IMM GRAN% 15.8 % (0.0-0.5); LYMPH# 0.36 X1000 (1.2-3.4); LYMPH% 21.8 % (20.5-51.1); MCH 27.7 PG (27-31); MCHC 33.2 g/dL (33-37); MCV 83.5 FL (81-99); MONO# 0.11 X1000 (0.11-0.59); MONO% 6.7 % (1.7-9.3); MPV 11.8 FL (7.4-10.4); NEUT# 0.91 X1000 (1.4-6.5); NEUT% 55.1 % (42.2-75.2); PLT 59 X1000 (130-400); RBC 2.78 XMIL (4.2-5.4); RDW 16.1 % (11.5-14.5); WBC 1.65 X1000 (4.8-10.8)
[2019-05-23 08:06] LABS: AGAP 10; BUN 18 mg/dL (8-22); CALCIUM 7.8 mg/dL (8.8-10.2); CHLORIDE 104 mmol/L (98-107); COSMO 285; CREATININE 0.4 mg/dL (0.5-0.9); ESTIMATED GFR > 60; GLUCOSE 103 mg/dL (70-104); POTASSIUM 2.8 mmol/L (3.5-5.1); SODIUM 142 mmol/L (136-145); TCO2 28 mmol/L (25-35)
[2019-05-23] MEDS: MYCOSTATIN SUSP PO SCH ×4 (08:27→21:17)
[2019-05-23] MEDS: PAXIL PO SCH (08:27)
[2019-05-23] MEDS: VITAMIN D PO SCH (08:27)
[2019-05-23] MEDS: MARINOL PO SCH ×2 (08:27→21:15)
[2019-05-23] MEDS: NORVASC PO SCH ×2 (08:27→21:15)
[2019-05-23] MEDS: ZYLOPRIM PO SCH ×2 (08:27→21:15)
--- NOTE | 2019-05-23 10:26 | Extremity Venous Study ---
PROCEDURE NAME: Venous U/S Right Arm - 05/21/2019 REFERRING PHYSICIAN: Dr. Keating. INTERPRETING PHYSICIAN: Dr. Centeno. DIRECTOR MICROBIOLOGY: Marija. INDICATION: The patient has swelling in the right upper extremity. FINDINGS: The right internal jugular, subclavian, axillary, brachial, basilic and cephalic veins are imaged in the right upper extremity. All are compressible. INTERPRETATION: No evidence of deep or superficial venous thrombosis in the right upper extremity in the veins identified. cc: MD Sapphire Gooden MD
[2019-05-23] MEDS: CUBICIN 500 MG in NS 100 ML IV SCH (12:23)
[2019-05-23] MEDS: D5W 50 ML IV SCH ×2 (12:27→17:11)
[2019-05-23] MEDS: D5W IV SCH (12:27)
[2019-05-23] MEDS: AMBISOME IV SCH (12:27)
[2019-05-23] MEDS: NORCO-5 PO PRN (12:54)
[2019-05-23] MEDS: LR 1,000 ML IV SCH (16:54)
[2019-05-23] MEDS ORDERED: KLOR-CON PO ONE (17:33)
--- NOTE | 2019-05-23 18:07 | PROGRESS NOTE ---
DATE: 05/23/2019 SUBJECTIVE: The patient is resting comfortably. She has no complaints at this time. OBJECTIVE: Vital signs: Temperature 98.6 degrees, blood pressure 130/51, heart rate 96, respirations 20, O2 saturation 94% on room air.General: This is a chronically ill-appearing elderly female, lying in bed in no acute distress. Heart: S1, S2, normal. Regular rate and rhythm. Lungs clear to auscultation bilaterally. Abdomen: Positive bowel sounds. Soft, nontender, nondistended. Extremities: No edema, no cyanosis. Neurologic: The patient is alert and oriented x4. LABORATORY DATA: White blood cell count 1.6, ANC 910, hemoglobin 7.7, hematocrit 23, platelets 59,000. Sodium 142, potassium 2.8, chloride 104, BUN 18, creatinine 0.4, glucose 103. ASSESSMENT AND PLAN: 1. Bilateral lobe pneumonia. Continue with antibiotic therapy. 2. Severe pansinusitis. Continue on the current antibiotic regimen. 3. Neutropenia. Slowly improving. The patient's ANC is 910 today. Continue with Granix and neutropenic precautions. 4. Pancytopenia. Continue to monitor closely and transfuse as necessary. 5. Acute myeloid leukemia. Aware. The patient will follow up with Dr. Koroma upon discharge to discuss further treatment. 6. Severe protein-calorie malnutrition. Continue on Marinol and Ensure. 7. Hyperthyroidism. Continue on Tapazole. 8. History of B-cell lymphoma. Aware. 9. Orbital cellulitis. Improved. 10. We will consult Physical Therapy. cc: Sapphire Keating MD
[2019-05-23] MEDS: REMERON PO SCH (21:15)
[2019-05-24] MEDS: MERREM 2 GM in NS 100 ML IV SCH ×3 (06:16→21:46)
[2019-05-24] MEDS: PRILOSEC PO SCH (06:17)
[2019-05-24] MEDS: TOBRADEX OPH SUSP BOTH EYES SCH ×4 (06:17→21:38)
[2019-05-24 08:05] LABS: EOS# 0.01 X1000 (0.0-0.7); EOS% 0.5 % (0.0-10.0); HEMATOCRIT 23.1 % (37.0-47.0); HEMOGLOBIN 7.6 g/dL (12.0-16.0); IMM GRAN# 0.03 X1000 (0.0-0.04); IMM GRAN% 1.6 % (0.0-0.5); LYMPH# 0.43 X1000 (1.2-3.4); LYMPH% 22.5 % (20.5-51.1); MCH 27.4 PG (27-31); MCHC 32.9 g/dL (33-37); MCV 83.4 FL (81-99); MONO# 0.01 X1000 (0.11-0.59); MONO% 0.5 % (1.7-9.3); MPV 11.7 FL (7.4-10.4); NEUT# 1.43 X1000 (1.4-6.5); NEUT% 74.9 % (42.2-75.2); RBC 2.77 XMIL (4.2-5.4); RDW 16.2 % (11.5-14.5); WBC 1.91 X1000 (4.8-10.8)
[2019-05-24 08:08] LABS: PLT 18 X1000 (130-400)
[2019-05-24 08:21] LABS: AGAP 10; BUN 20 mg/dL (8-22); CALCIUM 8.3 mg/dL (8.8-10.2); CHLORIDE 105 mmol/L (98-107); COSMO 288; CREATININE 0.4 mg/dL (0.5-0.9); ESTIMATED GFR > 60; GLUCOSE 113 mg/dL (70-104); SODIUM 143 mmol/L (136-145); TCO2 28 mmol/L (25-35)
[2019-05-24] MEDS: NORVASC PO SCH ×2 (08:41→21:37)
[2019-05-24] MEDS: VITAMIN D PO SCH (08:41)
[2019-05-24] MEDS: MYCOSTATIN SUSP PO SCH ×4 (08:41→21:37)
[2019-05-24] MEDS: MARINOL PO SCH ×2 (08:41→21:37)
[2019-05-24] MEDS: ZYLOPRIM PO SCH ×2 (08:42→21:37)
[2019-05-24] MEDS: PAXIL PO SCH (08:42)
[2019-05-24] MEDS ORDERED: NS 500 ML IV ONE (08:54)
[2019-05-24 09:11] LABS: ANISOCYTOSIS 2+; BANDS 2 % (0-1); HYPOCHROM 1+; LYMPHS 21 % (21-51); MICROCYTOSIS 2+; MONO 1 % (1-9); POLYCHROM 1+; SEGS 76 % (42-75)
[2019-05-24] MEDS: CUBICIN 500 MG in NS 100 ML IV SCH (11:55)
[2019-05-24] MEDS ORDERED: NS 500 ML ONE (12:58)
[2019-05-24] MEDS: D5W 50 ML IV SCH (13:20)
[2019-05-24] MEDS: LR 1,000 ML IV SCH (14:02)
--- NOTE | 2019-05-24 14:29 | INFECTIOUS DISEASE PROGRESS NO ---
DATE: 05/24/2019 PRESENT ILLNESS: The patient has the following infections: 1. Bibasilar pneumonia. 2. Oral candidiasis. 3. Conjunctivitis. 4. Sinusitis. 5. Preseptal or orbital cellulitis. MEDICATIONS: The patient has been on meropenem now for 11 days and daptomycin and AmBisome for 8 days. The patient also has been receiving TobraDex eyedrops and nystatin swish and swallow. PHYSICAL EXAMINATION: Vital Signs: Temperature is 98.6 degrees, pulse 101, respirations 19, blood pressure 145/57. General: This is an ill-appearing elderly female. She is in no acute distress and she looks much better than she has in the last week. Head/eyes/ears/nose/throat: There is swelling on the patient's face, but this swelling was present before she took her chemotherapy. Both eyes are not erythematous and there is no erythematous skin on the face either. There are no oral white patches. Neck: No pain with movement. Lungs: Clear to auscultation. Cardiovascular: Regular heart rate. Abdomen: Soft and nontender. Extremities: The patient has a PICC in the right arm. The site is not purulent or bleeding. Neurologic: The patient is more alert. She has begun to eat a little bit today. There is no tremor. LAB AND X-RAY STUDIES: I did not see any new radiographic study. The CBC shows a white count of 1910 with an absolute neutrophil count of 1430, hemoglobin 7.6, platelet count is 18,000, creatinine is 0.4, GFR is greater than 60. ASSESSMENT AND PLAN: The patient is having recovery of her bone marrow from chemotherapy. Her absolute neutrophil count is above 1000, so I am going to discontinue her antimicrobial agents today. I have discontinued AmBisome and if tomorrow the patient does not have fever overnight and her absolute neutrophil count remains above 1000, we will go ahead and stop daptomycin and meropenem and the TobraDex and nystatin. I think the patient probably will require maybe 3 to 4 more days of oral antibiotic such as a combination of Augmentin and Cipro to treat any remaining pneumonia or sinusitis. The preseptal or orbital cellulitis looks like it has cleared completely. COMORBIDITIES: The patient is elderly. She has a lymphoma and she has developed leukemia for which she is receiving chemotherapy. The patient has also had a splenectomy. cc: Juan Gardner MD
[2019-05-24] MEDS: NORCO-5 PO PRN (16:45)
[2019-05-24] MEDS ORDERED: KLOR-CON PO ONE (17:59)
--- NOTE | 2019-05-24 18:45 | PROGRESS NOTE ---
DATE: 05/24/2019 SUBJECTIVE: The patient is resting comfortably in bed. She is afebrile. She has no complaints. She is still not eating well. OBJECTIVE: Vital Signs: Temperature 98.2 degrees, blood pressure 152/53, heart rate 105, respirations 18, O2 saturation 95% on room air. General: This is a chronically ill-appearing elderly female lying in bed in no acute distress. Heart: S1, S2 normal. Tachycardic. Lungs: Equal air entry bilaterally. No wheezing. No rales. Abdomen: Positive bowel sounds. Soft, nontender, nondistended. Extremities: No edema. No cyanosis. Neurologic: The patient is alert and oriented x4. LABS: White blood cell count 1.9, hemoglobin 7.6, hematocrit 23, platelets 18,000. ANC 1430. Sodium 143, potassium 3, chloride 105, CO2 28, BUN 20, creatinine 0.4, glucose 113. ASSESSMENT AND PLAN: 1. Bilateral lobe pneumonia. Continue on the current antibiotic regimen as directed by Dr. Gardner. 2. Severe pansinusitis. Continue on the current treatment regimen. 3. Neutropenia. Resolved. The patient's ANC is 1430. We will discontinue neutropenic precautions at this time. 4. Pancytopenia. The patient will be transfused with two units of platelets today. 5. Acute myeloid leukemia. Aware. The patient will follow up with Dr. Koroma upon discharge to discuss further treatment options. 6. Hyperthyroidism. Continue on Tapazole. 7. Severe protein-calorie malnutrition. Continue on Ensure and Marinol. 8. Orbital cellulitis. Improved. The patient is on antibiotic therapy. 9. History of B-cell lymphoma. Aware. 10. Continue with physical therapy. cc: Sapphire Keating MD
[2019-05-24] MEDS: REMERON PO SCH (21:37)
[2019-05-25] MEDS: TOBRADEX OPH SUSP BOTH EYES SCH ×2 (04:15→08:33)
[2019-05-25] MEDS: MERREM 2 GM in NS 100 ML IV SCH ×3 (05:07→21:32)
[2019-05-25] MEDS: PRILOSEC PO SCH (06:06)
[2019-05-25] MEDS: ZOFRAN PO PRN (06:31)
[2019-05-25 07:33] LABS: BASO# 0.01 X1000 (0.0-0.2); BASO% 0.5 % (0.0-0.8); HEMATOCRIT 23.5 % (37.0-47.0); HEMOGLOBIN 7.8 g/dL (12.0-16.0); LYMPH# 0.42 X1000 (1.2-3.4); LYMPH% 22.2 % (20.5-51.1); MCH 27.8 PG (27-31); MCHC 33.2 g/dL (33-37); MCV 83.6 FL (81-99); MONO# 0.03 X1000 (0.11-0.59); MONO% 1.6 % (1.7-9.3); MPV 10.8 FL (7.4-10.4); NEUT# 1.43 X1000 (1.4-6.5); NEUT% 75.7 % (42.2-75.2); PLT 100 X1000 (130-400); RBC 2.81 XMIL (4.2-5.4); RDW 16.5 % (11.5-14.5); WBC 1.89 X1000 (4.8-10.8)
[2019-05-25 08:06] LABS: AGAP 11; BUN 16 mg/dL (8-22); CALCIUM 8.5 mg/dL (8.8-10.2); CHLORIDE 106 mmol/L (98-107); COSMO 291; CREATININE 0.5 mg/dL (0.5-0.9); ESTIMATED GFR > 60; GLUCOSE 122 mg/dL (70-104); POTASSIUM 3.5 mmol/L (3.5-5.1); SODIUM 145 mmol/L (136-145); TCO2 28 mmol/L (25-35)
[2019-05-25] MEDS: ZYLOPRIM PO SCH ×2 (08:36→21:31)
[2019-05-25] MEDS: PAXIL PO SCH (08:36)
[2019-05-25] MEDS: MARINOL PO SCH ×2 (08:36→21:31)
[2019-05-25] MEDS: VITAMIN D PO SCH (08:36)
[2019-05-25] MEDS: MYCOSTATIN SUSP PO SCH (08:36)
[2019-05-25] MEDS: NORVASC PO SCH ×2 (08:36→21:32)
[2019-05-25] MEDS: LR 1,000 ML IV SCH ×2 (08:36→11:21)
[2019-05-25] MEDS: CUBICIN 500 MG in NS 100 ML IV SCH (11:41)
--- NOTE | 2019-05-25 12:38 | Diag Imaging Result Doc PS360 ---
EXAM: ABDOMEN FLAT/UPRIGHT 05/25/2019 HISTORY: nausea TECHNIQUE: Flat and upright abdomen COMMENT: There is gas throughout the colon. Small bowel is not distended. The stomach is not distended. There is no evidence of organomegaly or mass. IMPRESSION: Nonspecific abdomen. The possibility of mild ileus cannot be excluded. Electronically signed by Brian Hidalgo 05/25/2019 12:35 PM
[2019-05-25] MEDS: D5W 50 ML IV SCH (13:45)
--- NOTE | 2019-05-25 13:54 | Diag Imaging Result Doc PS360 ---
EXAM: CHEST-1 VIEW INDICATION: pneumonia TECHNIQUE: One view COMPARISON: 05/22/2019 FINDINGS: The left PICC line is in stable position. Bilateral infiltrates are stable to marginally improved as compared to the previous study. No new consolidation is identified. Cardiac silhouette is stable. IMPRESSION: Stable to marginal improvement of bilateral infiltrates as described. Electronically signed by Milton Scanlon 05/25/2019 1:52 PM
--- NOTE | 2019-05-25 14:10 | INFECTIOUS DISEASE PROGRESS NO ---
DATE: 05/25/2019 PRESENT ILLNESS: The patient has been treated for the following infections. #1 bibasilar pneumonia. 2. Oral candidiasis. 3. Conjunctivitis. 4. Sinusitis and 5. Preseptal or orbital cellulitis. I think the patient's oral candidiasis and conjunctivitis and preseptal or orbital cellulitis have all cleared. The patient may still have a pneumonia or it could be that the patient just has pulmonary venous congestion. The patient's sinusitis may have cleared. MEDICATION: Daptomycin, meropenem. nystatin, and tobradex. PHYSICAL EXAMINATION: Vital Signs: Temperature is 98.1 degrees, pulse 110, respirations 14, blood pressure 155/57. General: This is an ill-appearing elderly female. She is in no acute distress. She tells me she does feel nauseated. Head/eyes/ears/nose/throat: She can hear my spoken words and see near objects. There is no further swelling on patient's face and there are no white patches on her tongue and there is no erythema in her throat. Neck: No pain with movement. Lungs: Clear to auscultation. Cardiovascular: Regular heart rate. Abdomen: Soft and nontender. Neurologic: The patient is awake. She can move her extremities. There is no tremor. LAB AND X-RAY: CBC today shows a white count of 1890 with a absolute neutrophil count of 1430. Creatinine is 0.5. GFR is greater than 60. X-ray of the abdomen showed gas in the colon, possibly due to an ileus. CK is less than 7. Hemoglobin 7.8 and platelet count is 100,00. One week ago the patient's procalcitonin was 0.83. Chest x-ray shows bilateral infiltrates from a few days ago. ASSESSMENT AND PLAN: I have gone ahead and discontinued daptomycin, nystatin and tobradex. The patient is still is on meropenem. For tomorrow a BMP and CBC have been ordered. I have also ordered another procalcitonin. I have also ordered a chest x-ray for tomorrow. COMORBIDITIES: The patient is elderly. She has a lymphoma and she developed leukemia for which she is receiving chemotherapy. The patient also had a splenectomy in the past. cc: Juan Gardner [facility]
--- NOTE | 2019-05-25 17:49 | PROGRESS NOTE ---
DATE: 05/25/2019 SUBJECTIVE: The patient is resting comfortably. The patient complains of abdominal pain and no appetite. OBJECTIVE: Vital Signs: Temperature 98.1 degrees, blood pressure 129/50, heart rate 102, respirations 14, O2 saturation is 92% on room air. General: This is an elderly female lying in bed, in no acute distress. Heart: S1, S2 normal. Tachycardic. Lungs: Clear to auscultation bilaterally. No wheezing. No rales. No rhonchi. Abdomen: Positive bowel sounds. Soft, nontender, nondistended. Extremities: No edema. No cyanosis. Neurologic: The patient is alert and oriented x3. LABS: White blood cell count 1.8, hemoglobin 7.8, hematocrit 23 platelets 100,000. Sodium 145, potassium 3.5, chloride 106, CO2 28, BUN 16, creatinine 0.5, glucose 122. ASSESSMENT AND PLAN: 1. Bilateral lobe pneumonia. Continue on meropenem as directed by Dr. Gardner. 2. Pansinusitis. Continue on the current antibiotic regimen as directed by Dr. Gardner. 3. Oral candidiasis. Resolved. 4. Orbital cellulitis. Continue with antibiotic therapy. 5. Pancytopenia. Continue to monitor the counts closely and transfuse as necessary. 6. Neutropenia. Resolved. The ANC is 1,430. 7. Acute myeloid leukemia. Aware. The patient will follow up with Dr. Koroma upon discharge to discuss further treatment options. 8. Hyperthyroidism. Continue on Tapazole. 9. Severe protein calorie malnutrition. Continue on Ensure and Marinol. 10. History of B-cell lymphoma. Aware. 11. Continue with physical therapy. The patient will likely need home health upon discharge from the hospital. cc: Sapphire Keating MD [facility]
[2019-05-25] MEDS: REMERON PO SCH (21:31)
[2019-05-26] MEDS: MERREM 2 GM in NS 100 ML IV SCH ×2 (06:06→13:15)
[2019-05-26] MEDS: PRILOSEC PO SCH (06:06)
[2019-05-26] MEDS: LR 1,000 ML IV SCH (06:30)
[2019-05-26 07:28] LABS: BASO# 0.01 X1000 (0.0-0.2); BASO% 0.5 % (0.0-0.8); HEMATOCRIT 21.9 % (37.0-47.0); HEMOGLOBIN 7.2 g/dL (12.0-16.0); IMM GRAN# 0.02 X1000 (0.0-0.04); IMM GRAN% 1.1 % (0.0-0.5); LYMPH# 0.43 X1000 (1.2-3.4); LYMPH% 23.2 % (20.5-51.1); MCH 27.6 PG (27-31); MCHC 32.9 g/dL (33-37); MCV 83.9 FL (81-99); MONO# 0.01 X1000 (0.11-0.59); MONO% 0.5 % (1.7-9.3); MPV 11.5 FL (7.4-10.4); NEUT# 1.38 X1000 (1.4-6.5); NEUT% 74.7 % (42.2-75.2); RBC 2.61 XMIL (4.2-5.4); RDW 16.5 % (11.5-14.5); WBC 1.85 X1000 (4.8-10.8)
[2019-05-26 07:29] LABS: PLT 32 X1000 (130-400)
[2019-05-26 07:37] LABS: AGAP 9; BUN 17 mg/dL (8-22); CALCIUM 8.6 mg/dL (8.8-10.2); CHLORIDE 105 mmol/L (98-107); COSMO 284; CREATININE 0.5 mg/dL (0.5-0.9); ESTIMATED GFR > 60; GLUCOSE 126 mg/dL (70-104); MAGNESIUM 1.9 mg/dL (1.5-2.7); POTASSIUM 3.4 mmol/L (3.5-5.1); SODIUM 141 mmol/L (136-145); TCO2 27 mmol/L (25-35)
[2019-05-26] MEDS: MARINOL PO SCH ×2 (08:01→23:05)
[2019-05-26] MEDS: PAXIL PO SCH (08:02)
[2019-05-26] MEDS: ZYLOPRIM PO SCH ×2 (08:02→23:05)
[2019-05-26] MEDS: NORVASC PO SCH ×2 (08:03→23:06)
[2019-05-26] MEDS: VITAMIN D PO SCH (08:04)
--- NOTE | 2019-05-26 08:30 | HEMO/ONC PROGRESS NOTE ---
DATE: 05/25/2019 CHIEF COMPLAINT: A little better. HISTORY OF PRESENT ILLNESS: Ms. Fatima has noted some nausea overnight and has received some Zofran this morning. Otherwise she has been feeling better. Her family is concerned that she is eating poorly. She received 2 units of platelets over the weekend and has not had any further bleeding. PHYSICAL EXAMINATION: Vital Signs: Temperature 98.1 degrees, pulse 110, respiratory rate 14, blood pressure 155/57, O2 saturation 93% on room air. General: This is a chronically ill- appearing elderly woman in no acute distress. She is accompanied by 2 family members at the bedside today. Eyes: Sclerae anicteric. Conjunctiva pale. Cardiovascular: Tachycardic, but regular rhythm. No murmurs, rubs, or gallops. Pulmonary: Coarse bilateral breath sounds. No wheezes, rales, or rhonchi. Abdomen: Soft, nontender, nondistended with no rebound or guarding. LABORATORY DATA: White count 1.89, hemoglobin 7.8, platelet count 100,000, absolute neutrophil count 1.43, creatinine 0.5. She has. ASSESSMENT AND PLAN: 1. Acute myeloid leukemia secondary. She is status post treatment and is continuing to recover her blood counts. We have discontinued growth factor support at this time. I do not expect her counts to improve much further from this point. Continue supportive care. 2. Anemia: Disease related. Transfuse as needed, symptomatically. Continue to monitor. 3. Thrombocytopenia: Significantly improved after transfusions yesterday. Continue to transfuse as needed. Bleeding precautions discussed. 4. Orbital cellulitis: Improved. Antibiotics and antifungals are being tapered. Continue to monitor. 5. Pneumonia versus pulmonary venous congestion: Repeat procalcitonin tomorrow per DR. Gardner. Continue to monitor. 6. Nausea: Continue Zofran p.r.n. Abdominal imaging pending to evaluate for constipation. cc: Cindi Koroma MD
[2019-05-26] MEDS ORDERED: COZAAR PO ONE (13:40)
--- NOTE | 2019-05-26 13:48 | INFECTIOUS DISEASE PROGRESS NO ---
DATE: 05/26/2019 PRESENT ILLNESS: I think the patient's main present illness is bibasilar pneumonia. I think her oral candidiasis, conjunctivitis, sinusitis, and preseptal or orbital cellulitis have cleared and primarily now were repeating a pneumonia. The patient could still have some remains of a sinusitis as well. MEDICATIONS: The patient is on meropenem as a single agent. This is the patient's 14th day of being on meropenem. PHYSICAL EXAMINATION: Vital Signs: Temperature is 98.1 degrees, pulse 108, respirations 14, blood pressure is 160/58. General: This is an ill-appearing elderly female. She is in no acute distress. Head/eyes/ears/nose/throat: She can hear my spoken words and see near objects. She does not have any drainage coming from the nose. There is no swelling of the face. There is no white coating of the tongue. Neck: No pain with movement. Lungs: Clear to auscultation. Cardiovascular: Regular heart rate. Abdomen: Soft and nontender. Neurologic: The patient is awake. She can move her extremities but she is very weak. She does not have a tremor and she is not eating much either. Extremities: The left arm PICC site is not red or purulent. LAB AND X-RAY: The patient's CBC shows a white count of 1850 with an absolute neutrophil count of 1380, hemoglobin 7.2, platelet count is 32,000. Creatinine is 0.5. GFR is greater than 60. Chest x-ray shows improvement in the patient's infiltrates. Procalcitonin level is 0.95 which translates into the patient very likely having pneumonia. ASSESSMENT AND PLAN: The patient appears to still have pneumonia and possibly sinusitis. I think for now we can do 1 of 2 options. 1) Continue meropenem or switch the patient over to an oral regimen such as Augmentin and ciprofloxacin. COMORBIDITIES: The patient is elderly. She has a lymphoma and she is now getting over chemotherapy for her leukemia. The patient has also had a splenectomy. cc: Juan Gardner MD [facility]
--- NOTE | 2019-05-26 13:50 | INFECTIOUS DISEASE PROGRESS NO ---
DATE: 05/26/2019 PRESENT ILLNESS: As far as infections go, I think the patient has 2 infections partially remaining, 1 is pneumonia and 2 is sinusitis. The other infections she had I think have cleared. MEDICATIONS: The patient is on meropenem as a single agent. This is the 14th day of treatment with it. PHYSICAL EXAMINATION: Vital Signs: Temperature is 98.1 degrees, pulse 108, respirations 14, blood pressure 160/58. General: This is an ill-appearing elderly female. She is in no acute distress. Head/Eyes/Ears/Nose/Throat: She can hear my spoken words and see near objects. She does not have any white coating on her tongue. There is no swelling or erythema of the face, and both eyes are not injected or draining. Neck: No stiffness. Lungs: Clear to auscultation. Cardiovascular: Regular heart rate. Extremities: Patient has a PICC in the left arm. The site is not erythematous or draining. Neurologic: The patient is alert. She can move her extremities. She is very, very weak and could not stand. The left arm PICC site is not red or purulent. LAB AND X-RAY: The patient's CBC today shows a white count of 1850 with an absolute neutrophil count of 1380, hemoglobin 7.2, platelet count is 32,000. Creatinine 0.5, GFR is greater than 60. Procalcitonin is 0.95 which translates into the patient having a bilateral pneumonia. I think she probably still has her pansinusitis. ASSESSMENT AND PLAN: I have discussed the patient with Dr. Hillman and the patient. I think we all agree that the patient is going to require rehab because she is so weak and cannot stand at all. As far as her antibiotics go, the plan is to continue meropenem and start the patient on a combination of Augmentin and Cipro, both being given by mouth. I think she probably would need the antibiotics for another 7 to 14 days. COMORBIDITIES: The patient is elderly. She has a lymphoma, and she has undergone chemotherapy for leukemia. The patient has also had a splenectomy. cc: Juan Gardner MD [facility]
--- NOTE | 2019-05-26 15:28 | PROGRESS NOTE ---
DATE: 05/26/2019 INTERVAL HISTORY: No acute events overnight. The patient's sister is at bedside. We had discussion about Dr. Koroma's encounter yesterday. SUBJECTIVE: Ms. Fatima is feeling really, really weak. She also appears a little short of breath, though she denies any chest pain or shortness of breath. She states she was trying to sit at the edge of the bed but started feeling really, really weak. VITALS: She has been afebrile. Her temperature is 99 degrees, pulse 104, respiratory rate 12, blood pressure 150/50, saturating 92% on room air. PHYSICAL EXAMINATION: She has significantly dry oral cavity. Her right orbital cellulitis has resolved. There is no conjunctival erythema anymore. Lungs: Air entry bilaterally equal. No wheeze or rhonchi. Inspiratory crackles in bilateral infra-axillary region. Cardiovascular: S1, S2 normal. Tachycardic. No murmur, rub, or gallop. Abdomen: Soft, nontender. She has generalized anasarca affecting bilateral upper and lower extremities. She is alert and oriented x3. LABS: Suggestive of WBC of 1.8, hemoglobin of 7.2, platelets of 32,000. She does have hypokalemia which is currently being repleted. MICROBIOLOGY: No new data. IMAGING: No new imaging. Chest x-ray yesterday had marginal improvement in bilateral infiltrates. ASSESSMENT AND PLAN: 1. Bilateral lower lobe pneumonia, pansinusitis, esophageal candidiasis, preseptal orbital cellulitis in the setting of pancytopenia. She has been on intravenous vancomycin, intravenous meropenem, intravenous fluconazole, and intravenous amphotericin B over the last almost 3 weeks of admission. Antibiotics have been changed to oral Augmentin and ciprofloxacin as per infectious disease recommendations. Her pneumonia, preseptal cellulitis, and pansinusitis appear stable at the moment and improved. 2. Neutropenia on admission, frequent thrombocytopenia and pancytopenia requiring 4 units of packed red blood cells and 9 units of platelets since admission. This is likely in the setting of her acute myeloid leukemia. We will check blood counts and we will transfuse as needed. Hematology/oncology team on board. 3. 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 Her chemotherapy has been on hold. Her bone marrow did not respond, unfortunately, and she has been requiring frequent transfusions. I will consult palliative care for further goals of care discussion. 4. Hyperthyroidism. Since her count has improved, I will start her back on a lower dose of her home methimazole. 5. Severe protein calorie malnutrition. Continue Marinol and Ensure. 6. Disposition. Continue physical therapy. At this point, it appears the patient has reached maximum benefit from medical admission. However, she is still dependent on her activities of daily living and she is still requiring frequent blood transfusions. I will consult manager social services to see if she could be a candidate for rehab or an intermediate care facility where she could get transfusions as needed. At the same time, I will also consult palliative care for goals of care discussion and possibly hospice eventually. Plan of care was discussed with the patient and her sister at bedside. Their questions have been satisfactorily answered. cc: Luiz Hillman MD
[2019-05-26] MEDS: LASIX PO SCH (15:53)
[2019-05-26] MEDS: POTASSIUM CHLORIDE 20 MEQ/SWI 20 MEQ/100 ML IVPB IV SCH ×2 (16:00→18:14)
[2019-05-26] MEDS: CIPRO PO SCH (23:05)
[2019-05-26] MEDS: REMERON PO SCH (23:05)
[2019-05-26] MEDS: AUGMENTIN PO SCH (23:06)
[2019-05-27] MEDS: PRILOSEC PO SCH (06:42)
[2019-05-27] MEDS ORDERED: NS 500 ML IV ONE (07:33)
[2019-05-27 07:35] LABS: PLT 11 X1000 (130-400)
[2019-05-27] MEDS: VITAMIN D PO SCH (09:02)
[2019-05-27] MEDS: COZAAR PO SCH (09:02)
[2019-05-27] MEDS: CIPRO PO SCH (09:02)
[2019-05-27] MEDS: AUGMENTIN PO SCH (09:03)
[2019-05-27] MEDS: LASIX PO SCH (09:04)
[2019-05-27] MEDS: NORVASC PO SCH ×2 (09:04→20:32)
[2019-05-27] MEDS: PAXIL PO SCH (09:04)
[2019-05-27] MEDS: TAPAZOLE PO SCH (09:04)
[2019-05-27] MEDS: ZYLOPRIM PO SCH ×2 (09:04→20:32)
[2019-05-27] MEDS: MARINOL PO SCH ×2 (09:16→20:32)
--- NOTE | 2019-05-27 12:00 | INFECTIOUS DISEASE PROGRESS NO ---
DATE: 05/27/2019 PRESENT ILLNESS: The patient has two infections that may be remaining. One is pneumonia and the other is sinusitis. The other infections have cleared. MEDICATIONS: Yesterday, I started the patient on a combination of Augmentin and ciprofloxacin. Unfortunately, today, she has an erythematous punctate rash on her arms and legs, which I assume means that she is allergic to the two oral agents that I had her on, namely Augmentin and ciprofloxacin. PHYSICAL EXAMINATION: Vital Signs: Temperature is 98 degrees, pulse 106, respirations 24, blood pressure is 118/59. General: This is an ill-appearing, elderly female. She is in no acute distress. She is very lethargic. Head, Eyes, Ears, Nose, and Throat: No drainage was noted from the nose or ears. I did not see any white coating of her tongue. Neck: No stiffness and it does not seem the patient is having any pain when her neck is moved. Lungs: Clear to auscultation. Cardiovascular: Heart rate is regular. Abdomen: Soft and nontender. Extremities: The patient has a PICC in the left arm. The site is not erythematous or purulent. Integument: The patient has an erythematous punctate rash on both arms and legs which started after starting the two oral antibiotics, namely Augmentin and Cipro. Neurologic: The patient is very lethargic. She did follow requests to open her mouth. LAB AND X-RAY: Procalcitonin is 0.95 which means the patient is very likely to have pneumonia. I also think that the patient could well have sinusitis on x-ray. ASSESSMENT AND PLAN: I have stopped Augmentin and ciprofloxacin. I have put the patient back on meropenem. I have ordered for tomorrow a CBC, a BMP, a chest x-ray, and a sinus x-ray. Both x- rays are to be done at bedside. COMORBIDITIES: The patient is elderly, she has a lymphoma, and has undergone chemotherapy for leukemia. The patient has also had a splenectomy. cc: Juan Gardner MD
[2019-05-27] MEDS: MERREM 2 GM in NS 100 ML IV SCH ×2 (12:46→20:32)
--- NOTE | 2019-05-27 16:11 | PROGRESS NOTE ---
DATE: 05/28/2019 INTERVAL HISTORY: No acute events overnight. She did develop thrombocytopenia for which she is getting 1 unit of platelet transfusion. She also developed rash after she was started on Augmentin and ciprofloxacin yesterday, so they have been discontinued and patient was started back on meropenem. SUBJECTIVE: Patient denies new complaints. She states she is feeling weak, though her oxygen levels have been within acceptable range. She has not been on DVT prophylaxis because of thrombocytopenia. VITALS: Temperature 98.1 degrees, pulse 100, respiratory 24, blood pressure 101/57. She is saturating 93% on room air. PHYSICAL EXAMINATION: General: She is not in any acute distress. Mouth: The oral cavity is dry. Lungs: Air entry bilaterally equal. No wheeze or rhonchi. Inspiratory crackles in bilateral infra-axillary region. Cardiovascular: S1, S2 normal. Tachycardic. No murmur, rub, or gallop. Abdomen: Obese, soft, nontender. Active bowel sounds. Extremities: She has anasarca affecting bilateral upper and lower extremities. Neurologic: She is alert and oriented x3. However, she is not able to complete her sentences because of shortness of breath. LABS: Consists of no CBC today, except platelet count which is 11,000. MICROBIOLOGY/IMAGING: No new microbiological or imaging data. ASSESSMENT AND PLAN: 1. Bilateral lower lobe pneumonia, pansinusitis, esophageal candidiasis, preseptal orbital cellulitis in the setting of pancytopenia. Continue intravenous meropenem. Follow up with x- ray of chest and sinuses tomorrow as per Infectious Disease recommendation. 2. Neutropenia on admission which has resolved; give transfusion of platelets as needed. She is status post 9 units of platelets and 4 units of packed red blood cells since presentation. This is in the setting of her acute myeloid leukemia. 3. History of diffuse large B-cell lymphoma, status post R-CHOP in 2017, and secondary to acute myeloid leukemia for which she was on Venetoclax and Dacogen outpatient. Her chemotherapy has been on hold. 4. History of thyrotoxicosis and hyperthyroidism. Continue her home methimazole at a reduced dose. 5. Severe protein energy malnutrition. Continue Marinol, Ensure. I will start her on multivitamins. DISPOSITION: Continue physical therapy. [employer] [place] has been consulted to see if the patient could be discharged to rehab. However, her long-term prognosis is guarded to poor. I also have consulted Palliative Care. Plan of care discussed with the patient. All questions have been answered. cc: Luiz Hillman MD
[2019-05-27] MEDS: THERA M PLUS PO SCH (17:54)
[2019-05-27] MEDS: REMERON PO SCH (20:32)
[2019-05-28] MEDS: MERREM 2 GM in NS 100 ML IV SCH ×3 (05:40→21:25)
[2019-05-28] MEDS: PRILOSEC PO SCH ×2 (05:40→06:10)
--- NOTE | 2019-05-28 07:20 | Diag Imaging Result Doc PS360 ---
EXAM: CHEST-1 VIEW 05/28/2019 HISTORY: pneumonia TECHNIQUE: AP portable at 0627 COMMENT: There is a PICC line on the left with its tip in the superior vena cava. There is patchy alveolar opacity present in the right lower lobe, left upper lobe and denser opacification of the left lower lobe. This is slightly worse than on 05/25/2019. IMPRESSION: Pulmonary edema and/or pneumonia. Electronically signed by Brian Hidalgo 05/28/2019 7:18 AM
--- NOTE | 2019-05-28 07:22 | Diag Imaging Result Doc PS360 ---
EXAM: SINUSES 05/28/2019 HISTORY: sinusitis TECHNIQUE: Sinus series 3 views COMMENT: There is hazy opacity over the ethmoid and left frontal sinuses. There are no air-fluid levels demonstrated. IMPRESSION: Possible chronic left frontal and ethmoid sinusitis. Electronically signed by Brian Hidalgo 05/28/2019 7:20 AM
[2019-05-28 08:01] LABS: BASO# 0.01 X1000 (0.0-0.2); BASO% 0.6 % (0.0-0.8); HEMATOCRIT 20.4 % (37.0-47.0); HEMOGLOBIN 6.5 g/dL (12.0-16.0); LYMPH# 0.48 X1000 (1.2-3.4); LYMPH% 28.1 % (20.5-51.1); MCH 27.2 PG (27-31); MCHC 31.9 g/dL (33-37); MCV 85.4 FL (81-99); MONO# 0.01 X1000 (0.11-0.59); MONO% 0.6 % (1.7-9.3); MPV 12.1 FL (7.4-10.4); NEUT# 1.21 X1000 (1.4-6.5); NEUT% 70.7 % (42.2-75.2); PLT 62 X1000 (130-400); RBC 2.39 XMIL (4.2-5.4); RDW 16.8 % (11.5-14.5); WBC 1.71 X1000 (4.8-10.8)
[2019-05-28 08:39] LABS: AGAP 10; BUN 21 mg/dL (8-22); CALCIUM 8.3 mg/dL (8.8-10.2); CHLORIDE 105 mmol/L (98-107); COSMO 292; CREATININE 0.6 mg/dL (0.5-0.9); ESTIMATED GFR > 60; GLUCOSE 131 mg/dL (70-104); POTASSIUM 3.2 mmol/L (3.5-5.1); SODIUM 144 mmol/L (136-145); TCO2 29 mmol/L (25-35)
[2019-05-28] MEDS: NORVASC PO SCH ×2 (10:03→21:25)
[2019-05-28] MEDS: TAPAZOLE PO SCH (10:03)
[2019-05-28] MEDS: PAXIL PO SCH (10:03)
[2019-05-28] MEDS: VITAMIN D PO SCH (10:03)
[2019-05-28] MEDS: COZAAR PO SCH (10:03)
[2019-05-28] MEDS: THERA M PLUS PO SCH (10:03)
[2019-05-28] MEDS: ZYLOPRIM PO SCH ×2 (10:03→21:25)
[2019-05-28] MEDS: MARINOL PO SCH ×2 (10:04→21:37)
[2019-05-28] MEDS: LASIX PO SCH (10:04)
[2019-05-28] MEDS ORDERED: NS 250 ML ONE (15:32)
[2019-05-28] MEDS: POTASSIUM CHLORIDE 20 MEQ/SWI 20 MEQ/100 ML IVPB IV SCH ×3 (15:41→18:28)
[2019-05-28] MEDS: KLOR-CON PO SCH ×3 (15:45→21:29)
--- NOTE | 2019-05-28 19:08 | INFECTIOUS DISEASE PROGRESS NO ---
DATE: 05/28/2019 PRESENT ILLNESS: Ms. Fatima is being treated for pneumonia and has also been found to have a probable chronic sinusitis on the left. MEDICATIONS: She is receiving meropenem 2 g IV every 8 hours. PHYSICAL EXAMINATION: Vital Signs: Temperature is 98.2 degrees, pulse rate 104, respiratory rate 16, blood pressure 117/51, O2 saturation is 100% on room air. General: This is a chronically ill- appearing, elderly female. She is lying in bed, currently in no acute distress. HEENT: Atraumatic, normocephalic. Oral mucous membranes are pink and dry. Conjunctivae are pale. Cardiovascular: Heart rate and rhythm are regular. Normal sinus rhythm on the monitor. Respiratory: Lung sounds have wheezing to the right upper lobe, rales to the left side. Diminished to the right, mid and bases. Abdomen: Soft, obese, nontender. Bowel sounds are active. Integumentary: Skin is warm and dry. There is a PICC line in place to the left upper arm. The site is without edema, erythema, or drainage. Neurologic: She is drowsy and lethargic, but arousable and will nod her head and follow commands appropriately. Nonverbal at this time. LABORATORY AND X-RAY: Today, her white count is 1.71 hemoglobin 6.5, platelet count 62,000. Absolute neutrophil count is 1210. Creatinine is 0.6. Estimated GFR is greater than 60. A sinus x-ray done this morning shows possible chronic left frontal and ethmoid sinusitis. Chest x- ray shows pulmonary edema and/or pneumonia. ASSESSMENT AND PLAN: Ms. Fatima is being treated for pneumonia on top of pancytopenia which seems to be improving somewhat. She has a continued pneumonia as well as a probable, chronic left-sided sinusitis. Yesterday we tried to change her to Augmentin and Cipro, but unfortunately she had an allergic-type reaction with a rash. Today the rash appears to have subsided. She is now back on the meropenem, which we will continue at this time. These plans have been discussed with and recommended by Dr. Gardner. COMORBIDITIES: For Ms. Fatima include that she is elderly with acute myeloid leukemia, pancytopenia and protein-calorie malnutrition. Dictated by KANCHAN Sy for Juan Gardner MD cc: Juan Gardner MD MTDD
--- NOTE | 2019-05-28 19:45 | HEMO/ONC PROGRESS NOTE ---
DATE: 05/28/2019 SUBJECTIVE: Ms. Fatima is lying in the hospital bed. Her sister is at bedside. She is in no acute distress. VITAL SIGNS: Temperature 97.9 degrees, heart rate 102, respirations 16, blood pressure 125/40, O2 saturation 100% on 2 L nasal cannula. LABS: Today, white blood cells 1.71, hemoglobin 6.5, platelets are 62, absolute neutrophil count is 1.21. PHYSICAL EXAMINATION: CV: Tachycardia noted, but regular rhythm. Respiratory: Normal respiratory effort. Coarse breath sounds. Gastrointestinal: Abdomen is soft. Normoactive bowel sounds noted. Extremities: She has some trace bilateral extremity edema noted. ASSESSMENT AND PLAN: 1. Acute myeloid leukemia. She is status post treatment, but currently her Dacogen and venetoclax are on hold. We do not expect her counts to improve much further from this point. We had a conversation with the patient and her sister today about goals of care. We talked about the patient proceeding with hospice care. She seems open to hospice. Palliative Care has already been consulted. We have updated the palliative care nurse about the conversation and their interest in proceeding with hospice. 2. Anemia. This is disease related. Patient's hemoglobin is on 6.5. We will proceed with 1 unit of packed red blood cells at this time. 3. Thrombocytopenia. Improved after transfusion. 4. Orbital cellulitis with pneumonia and oral thrush, as well as viral infection. All of these have improved. All of the management has been by Dr. Gardner and will continue to follow his recommendations. 5. Disposition. Again, we have recommended hospice and per our last conversation with the patient, she is open to proceeding with hospice admission. We will continue to follow the patient while she is here in the hospital. Dictated by DALILA Duncan for Cindi Koroma MD cc: Cindi Koroma MD I have seen and examined the patient. The above note reflects my history, physical exam, assessment and plan Cindi SOARES
[2019-05-28] MEDS: REMERON PO SCH (21:25)
[2019-05-29] MEDS: MERREM 2 GM in NS 100 ML IV SCH ×3 (04:27→20:10)
[2019-05-29] MEDS: PRILOSEC PO SCH (06:44)
[2019-05-29 07:37] LABS: MPV 11.1 FL (7.4-10.4)
[2019-05-29] MEDS: VITAMIN D PO SCH (10:35)
[2019-05-29] MEDS: NORVASC PO SCH ×2 (10:36→20:11)
[2019-05-29] MEDS: MARINOL PO SCH ×2 (10:36→20:11)
[2019-05-29] MEDS: COZAAR PO SCH (10:36)
[2019-05-29] MEDS: TAPAZOLE PO SCH (10:37)
[2019-05-29] MEDS: THERA M PLUS PO SCH (10:37)
[2019-05-29] MEDS: PAXIL PO SCH (10:37)
[2019-05-29] MEDS: ZYLOPRIM PO SCH ×2 (10:38→20:10)
--- NOTE | 2019-05-29 11:38 | INFECTIOUS DISEASE PROGRESS NO ---
DATE: 05/29/2019 PRESENT ILLNESS: The patient is being treated for pneumonia and sinusitis. MEDICATIONS: The patient is receiving meropenem. PHYSICAL EXAMINATION: Vital Signs: Temperature is 98.3 degrees, pulse 102, respirations 18, blood pressure 139/52. General: This is a chronically ill-appearing, elderly female. She today is much more alert, and she is able to move much more also. Head/eyes/ears/nose/throat: She can hear my spoken words and see near objects. She does not have any drainage coming from her nose or ears. She does still have some white coating on her tongue. Neck: No pain with movement. Lungs: Clear to auscultation. Cardiovascular: Heart rate is regular. Abdomen: Soft and nontender. Extremities: Patient has a PICC in the left arm. The site is not erythematous or purulent. Neurologic: The patient is much more alert today. She can move her extremities, and she can talk in a coherent fashion. Integument: The patient's rash that she developed when I switched her over to oral antibiotics is still present. It may be that she is becoming allergic to meropenem also. LAB AND X-RAY: There is no new lab or x-ray for today. ASSESSMENT AND PLAN: Patient has completed her first treatment for her leukemia. I plan to continue her meropenem because she had a rash when I switched her to oral agents, and meropenem she seemed to tolerate well. COMORBIDITIES: The patient is elderly and unfortunately she has acute myeloid leukemia, and she has pancytopenia and protein calorie malnutrition. cc: Juan Gardner MD
[2019-05-29] MEDS ORDERED: BENADRYL CREAM TOP PRN (18:58)
[2019-05-29] MEDS ORDERED: KLOR-CON PO ONE (19:30)
--- NOTE | 2019-05-29 19:58 | PROGRESS NOTE ---
DATE: 05/29/2019 INTERVAL HISTORY: No acute events overnight. SUBJECTIVE: Ms. Fatima denies new complaints. Denies chest pain or shortness of breath. She is complaining of some itchiness in bilateral hands. Denies shortness of breath. She states she is still thinking about hospice, and has not made up her mind. Will meet hospice person tomorrow. VITALS: Temperature of 98.1 degrees, pulse 86, respiratory rate 18, blood pressure 114/37, and saturating 100% on room air. PHYSICAL EXAMINATION: Not in acute distress.HEENT: Oral cavity is moist. Lungs: Air entry bilaterally equal. No wheeze or rhonchi. Inspiratory crackles bilateral infrascapular region. Heart: S1, S2 normal. Non tachycardic. Abdomen: Soft, nontender. Skin: She has an itchy papular rash affecting bilateral hands with some erythema. She also has bruises all over her arms and forearms. LABORATORY: Suggestive of a platelet count of 29,000. No new microbiological data. No new imaging. ASSESSMENT AND PLAN: 1. Bilateral lower lobe pneumonia, pansinusitis, esophageal candidiasis, preseptal orbital cellulitis. 2. Pancytopenia, neutropenic in the setting of acute myeloid leukemia. 3. History of diffuse treated large B-cell lymphoma. 4. History of thyrotoxicosis and hyperthyroidism. 5. Severe protein energy malnutrition. PLAN: Continue intravenous meropenem. I will start her on topical hydrocortisone cream. I will also give her a dose of Lasix tomorrow for her crackles. We will supplement her potassium. Awaiting the patient's final discussion with hospice team about possible discharge to hospice. cc: Luiz Hillman MD
[2019-05-29] MEDS: REMERON PO SCH (20:11)
[2019-05-30] MEDS: MERREM 2 GM in NS 100 ML IV SCH ×3 (04:54→20:38)
[2019-05-30] MEDS ORDERED: LASIX PO ONE (06:00)
[2019-05-30] MEDS: PRILOSEC PO SCH (06:02)
[2019-05-30] MEDS: THERA M PLUS PO SCH (09:23)
[2019-05-30] MEDS: TAPAZOLE PO SCH (09:23)
[2019-05-30] MEDS: COZAAR PO SCH (09:23)
[2019-05-30] MEDS: NORVASC PO SCH (09:23)
[2019-05-30] MEDS: ZYLOPRIM PO SCH ×2 (09:23→20:34)
[2019-05-30] MEDS: VITAMIN D PO SCH (09:23)
[2019-05-30] MEDS: PAXIL PO SCH (09:23)
[2019-05-30] MEDS: MARINOL PO SCH ×2 (09:24→20:34)
[2019-05-30] MEDS ORDERED: LOPRESSOR IV ONE (15:54)
[2019-05-30] MEDS ORDERED: LOPRESSOR PO SCH (16:00)
[2019-05-30] MEDS ORDERED: NS 500 ML IV ONE (16:47)
[2019-05-30] MEDS ORDERED: LASIX IV SCH (17:00)
[2019-05-30] MEDS ORDERED: KLOR-CON PO ONE (17:45)
--- NOTE | 2019-05-30 18:12 | PROGRESS NOTE ---
DATE: 05/30/2019 INTERVAL HISTORY: The patient went into tachycardia, and the rhythm strip sent over by the telemetry team suggests narrow-complex irregular supraventricular tachycardia, likely atrial fibrillation. I ordered a stat dose of metoprolol, with oral metoprolol and IV metoprolol, since the patient's heart rate was in excess of 150s. She came right back to a heart rate of 90s. EKG is currently pending. SUBJECTIVE: Ms. Fatima denies any chest pain, shortness of breath or palpitations. She states she has not made any decision regarding going home on hospice, but she is going to have a discussion with her sister today. OBJECTIVE: Vital signs: Currently temperature 97.9 degrees, pulse 102, respiratory rate 40, blood pressure 130/49, saturating 100% on room air. On physical examination not in acute distress. Oral cavity is moist. Air entry bilaterally equal. No wheeze or rhonchi. Inspiratory crackles in infrascapular region. S1, S2 normal. Irregularly irregular. No murmur or gallop. Abdomen is obese, soft, nontender. She has bilateral lower extremity edema. She is alert and oriented x3, appears comfortable. LABORATORY DATA: No CBC or BMP today. ASSESSMENT AND PLAN: 1. Bilateral lower lobe pneumonia, pansinusitis, esophageal candidiasis and preseptal orbital cellulitis. Continue intravenous meropenem. I appreciate Infectious Disease recommendation about changing her to oral antibiotics in the near future as we plan discharge. 2. Pancytopenia and neutropenic fever in the setting of acute myeloid leukemia, now stable. Her neutropenia has resolved. 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 I will give her a unit of blood and a unit of platelet today, since she is going to be in the hospital. She is status post multiple doses of filgrastim subcutaneously. 3. Atrial fibrillation with rapid ventricular rate. I will start the patient on oral metoprolol. Considering her thrombocytopenia, she is not a candidate for anticoagulation. Official electrocardiogram is awaited. 4. Essential hypertension. The patient is on amlodipine as well as losartan. I am starting her on metoprolol for atrial fibrillation, so I am discontinuing both medication. In future I will consider adding losartan back depending on her blood pressure. 5. Bilateral pedal edema. I will give the patient interim doses of intravenous Lasix after each transfusion today, and also will keep her on oral potassium. 6. Thyrotoxicosis and hyperthyroidism. Follow up on TSH and free T4. 7. History of diffuse treated large B-cell lymphoma and severe protein-energy malnutrition. DISPOSITION: Ms. Fatima's condition and prognosis remain poor, considering bone marrow failure which did not respond to chemotherapy in the setting of her acute myeloid leukemia. She is about to have a detailed discussion about long-term care plan with her sister shena. I explained to her that she is at risk of accruing more medical problems being in the hospital, such as catching pneumonia or urine infection, and that she should make a decision soon to avoid such complication. She is in agreement. cc: Luiz Hillman MD
[2019-05-30] MEDS: REMERON PO SCH (20:34)
--- NOTE | 2019-05-30 22:18 | EKG Report ---
Test Performed on : 05/30/2019 5:53:42 PM Test Reason : Evaluate for heart rhythm Blood Pressure : / mmHG Vent. Rate : 089 BPM Atrial Rate : 089 BPM P-R Int : 140 ms QRS Dur : 090 ms QT Int : 364 ms P-R-T Axes : 058 -15 074 degrees QTc Int : 442 ms Normal sinus rhythm. Normal ECG When compared with ECG of 01-MAY-2018 09:05, Inverted T waves have replaced nonspecific T wave abnormality in Lateral leads Confirmed by Diego ALEX, Osmin Jones ([id number]) on 06/01/2019 9:28:41 AM
[2019-05-30] MEDS: LOPRESSOR PO SCH (22:50)
[2019-05-31] MEDS ORDERED: LASIX IV ONE (03:26)
[2019-05-31] MEDS: MERREM 2 GM in NS 100 ML IV SCH ×3 (03:46→19:41)
[2019-05-31] MEDS: LOPRESSOR PO SCH ×4 (04:46→20:26)
[2019-05-31 07:53] LABS: BASO# 0.02 X1000 (0.0-0.2); BASO% 0.9 % (0.0-0.8); EOS# 0.01 X1000 (0.0-0.7); EOS% 0.5 % (0.0-10.0); HEMATOCRIT 31.3 % (37.0-47.0); HEMOGLOBIN 10.2 g/dL (12.0-16.0); LYMPH# 0.87 X1000 (1.2-3.4); LYMPH% 39.7 % (20.5-51.1); MCH 27.1 PG (27-31); MCHC 32.6 g/dL (33-37); MCV 83.2 FL (81-99); MONO# 0.05 X1000 (0.11-0.59); MONO% 2.3 % (1.7-9.3); MPV 9.4 FL (7.4-10.4); NEUT# 1.24 X1000 (1.4-6.5); NEUT% 56.6 % (42.2-75.2); PLT 61 X1000 (130-400); RBC 3.76 XMIL (4.2-5.4); RDW 16.2 % (11.5-14.5); WBC 2.19 X1000 (4.8-10.8)
[2019-05-31] MEDS: TAPAZOLE PO SCH (08:51)
[2019-05-31] MEDS: PAXIL PO SCH (08:51)
[2019-05-31] MEDS: THERA M PLUS PO SCH (08:52)
[2019-05-31] MEDS: ZYLOPRIM PO SCH ×3 (08:52→20:26)
[2019-05-31] MEDS: PRILOSEC PO SCH (08:52)
[2019-05-31] MEDS: VITAMIN D PO SCH (08:52)
[2019-05-31] MEDS: MARINOL PO SCH ×3 (08:52→20:26)
[2019-05-31 08:54] LABS: TSH 3.4 uIUmL (0.27-4.20)
[2019-05-31 08:55] LABS: FREE T4 0.72 ng/dL (0.93-1.70)
--- NOTE | 2019-05-31 13:10 | INFECTIOUS DISEASE PROGRESS NO ---
DATE: 05/31/2019 PRESENT ILLNESS: The patient is receiving antimicrobial therapy for pneumonia and sinusitis. She has just finished chemotherapy for acute leukemia. MEDICATIONS: The patient is on meropenem and this is day 4. I initially had stopped meropenem but I restarted it because when she was put on oral antibiotics, namely Augmentin and ciprofloxacin, she developed a rash. PHYSICAL EXAMINATION: Vital Signs: Temperature is 98.4 degrees, pulse 90, respirations 16, blood pressure is 121/46. General: This is a chronically ill-appearing, elderly female. She is alert today and she told me she is eating more. Head/eyes/ears/nose/throat: She can hear my spoken words and see near objects. I do not see any white coating on her tongue. Neck: She does not have any pain when she moves her neck. Lungs: Clear to auscultation. Cardiovascular: Heart rate is regular. Abdomen: Soft and nontender. Extremities: Patient has a PICC in the left arm. The site is not erythematous or tender. Neurologic: The patient is awake. She is more alert today than she was a couple days ago. She also tells me that she is eating more. She can barely move her extremities because she is so weak due to deconditioning. Integument: The patient's rash that she had when I started her on oral antibiotics has almost completely cleared. LAB AND X-RAY: CBC today showed a white count of 2190, hemoglobin 10.2, platelet count 61,000. The absolute neutrophil count was 1240. ASSESSMENT AND PLAN: The patient is being treated for pneumonia and sinusitis. I plan to continue meropenem for a few more days because there will not be an oral regimen that I can switch her to because she had an allergic reaction to Augmentin and ciprofloxacin. 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 She also now is malnourished because of lack of food intake. cc: Juan Gardner MD
[2019-05-31 13:25] LABS: BANDS 20 % (0-1); LYMPHS 24 % (21-51); SEGS 52 % (42-75)
--- NOTE | 2019-05-31 14:05 | PROGRESS NOTE ---
DATE: 05/31/2019 INTERVAL HISTORY: Ms. Fatima had an episode of tachycardia yesterday which looked like supraventricular. Since then she has been maintaining normal sinus rhythm, and her blood pressure has been well controlled. SUBJECTIVE: Ms. Fatima denies new complaints. She states she is drinking liquids. Vitals: Temperature 98.4 degrees, pulse 90, respiratory rate 16, blood pressure 120/46, saturating 99% room air. She tolerated blood transfusion well, and she was given intravenous Lasix after blood transfusion. PHYSICAL EXAMINATION: General: Not in any acute distress. Oral cavity: Moist. Lungs: Air entry bilaterally equal. No wheeze or rhonchi. She has crackles bilateral infrascapular region with decreased air entry. Cardiovascular: S1, S2 normal. Appears regular. No murmur, rub, or gallop. Abdomen: Obese, soft, nontender. Extremities: Bilateral lower extremity edema. Neurologic: She is alert and oriented x3 though appears intermittently confused; however, engaging in the conversation meaningfully. LABS: Suggestive of a rise in hemoglobin and platelets. Potassium of 3.2, which is currently being repleted. Her TSH and free T4 are within acceptable range. ASSESSMENT AND PLAN: 1. Bilateral lower lobe pneumonia, pansinusitis, esophageal candidiasis, and preseptal orbital cellulitis. Continue intravenous meropenem as per ID recommendation and consider changing it to oral at the time of discharge. 2. Pancytopenia and neutropenic fever in the setting of acute myeloid leukemia. She has been requiring intermittent platelet and packed red blood cell transfusions. She is status post filgrastim subcutaneously. 3. Paroxysmal supraventricular tachycardia. EKG could not capture it. I will keep her on oral metoprolol. She is not a candidate of anticoagulation. 4. Essential hypertension. Currently on metoprolol, and I will add back her home losartan as tolerated. 5. Bilateral pedal edema, status post intravenous Lasix. She has a risk of DVT as well. However, considering thrombocytopenia, not a candidate for chemical anticoagulation. 6. Thyrotoxicosis and hypothyroidism. TSH and free T4 are acceptable range. I will continue her home methimazole. 7. History of treated large B-cell lymphoma and severe protein energy malnutrition. Aware. 8. Disposition. At this point the patient has still not made any decision with regards to her future plan, whether she would want to go home with hospice or rehab. She states that she wanted to have time until Saturday. I again reiterated with the patient that she is at risk of accruing more medical problems being in the hospital such as pneumonia, urine infection, blood clot versus others, and I suggested that she should expedite her decision making. She understands it. I again revisited the patient when her sister came by. At this time her brother and [id number] are also present in the room. I explained to them about the patient's clinical condition, failure of bone marrow to respond. I answered all of their questions. I again reiterated and explained to them about need for decision making to avoid a hospital-acquired conditions. They understood it, and patient is thinking about that. I also offered the patient help from social staff worker and palliative care team which would be available tomorrow if she had any questions, and she states she would get in touch with them as necessary. cc: Luiz Hillman MD
[2019-05-31] MEDS: KLOR-CON PO SCH (16:04)
[2019-05-31] MEDS: REMERON PO SCH ×2 (19:42→20:26)
[2019-05-31] MEDS: NORCO-5 PO PRN (19:42)
[2019-06-01] MEDS: MERREM 2 GM in NS 100 ML IV SCH (04:12)
[2019-06-01] MEDS: LOPRESSOR PO SCH ×4 (04:12→21:07)
[2019-06-01] MEDS: ZYLOPRIM PO SCH ×2 (08:07→21:07)
[2019-06-01] MEDS: MARINOL PO SCH ×2 (08:07→21:07)
[2019-06-01] MEDS: PRILOSEC PO SCH (08:07)
[2019-06-01] MEDS: THERA M PLUS PO SCH (08:07)
[2019-06-01] MEDS: PAXIL PO SCH (08:07)
[2019-06-01] MEDS: VITAMIN D PO SCH (08:07)
[2019-06-01] MEDS: TAPAZOLE PO SCH (08:07)
[2019-06-01 09:08] LABS: AGAP 12; BUN 15 mg/dL (8-22); CALCIUM 8.4 mg/dL (8.8-10.2); CHLORIDE 104 mmol/L (98-107); COSMO 292; CREATININE 0.6 mg/dL (0.5-0.9); ESTIMATED GFR > 60; GLUCOSE 109 mg/dL (70-104); POTASSIUM 3.9 mmol/L (3.5-5.1); SODIUM 146 mmol/L (136-145); TCO2 30 mmol/L (25-35)
--- NOTE | 2019-06-01 15:03 | INFECTIOUS DISEASE PROGRESS NO ---
DATE: 06/01/2019 The patient does not have any active infection at this time. I think unfortunately her outlook is very poor. I am going to discontinue meropenem. Previously when the patient was on Augmentin and ciprofloxacin, she developed a rash. It would be very hard for me to come up with a good oral regimen of antibiotics for her and also I do not think she requires any antibiotics at this time. I am signing off of her case. cc: Juan Gardner MD
--- NOTE | 2019-06-01 16:52 | PROGRESS NOTE ---
DATE: 06/01/2019 INTERVAL HISTORY: No acute events overnight. SUBJECTIVE: Ms. Fatima denies any chest pain, shortness of breath or cough. VITAL SIGNS: Temperature 98.9 degrees, pulse 95, respiratory 15, blood pressure 106/58, saturating 96% on room air. PHYSICAL EXAMINATION: Not in acute distress.HEENT: Oral cavity is moist. Lungs: Air entry bilaterally equal except decreased lung sound in left lower quadrant with inspiratory crackles. Cardiovascular: S1, S2 normal. Not tachycardic. No murmur or gallop. Abdomen: Soft, nontender. Extremity: No lower extremity edema. Neurologic: She is alert oriented x3. She appears pretty weak. LABORATORY DATA: BMP suggestive of normal electrolytes and normal kidney function. No new microbiological or imaging data. ASSESSMENT AND PLAN: 1. Bilateral lower lobe pneumonia, pansinusitis, esophageal candidiasis, preseptal orbital cellulitis. 2. Pancytopenia and neutropenic fever in the setting of acute myeloid leukemia. 3. Paroxysmal supraventricular tachycardia. Though the EKG could not capture it, telemetry did detect heart rate as high as more than 150. 4. Essential hypertension. 5. Thyrotoxicosis and hypothyroidism. 6. History of treated large B-cell lymphoma and severe protein energy malnutrition. PLAN: 1. I will continue her on intravenous meropenem as per Infectious Disease recommendation. 2. I will continue her on metoprolol for rate control as well as essential hypertension. 3. She is on methimazole for her thyrotoxicosis and dronabinol for protein energy malnutrition to increase appetite, which has not worked so far. DISPOSITION: I again encouraged the patient to make a decision regarding if she would want to go home on home hospice. I explained to her about the complications of being in the hospital and risk of hospital-acquired infections and other conditions. She understood it. I explained to her that if her goal was to really go home on hospice, I wanted to facilitate and help her achieve that goal and for that it was important that we expedite the discharge process so that she does not catch up any hospital-acquired condition. She understood it. She states she is going to make a decision by Saturday and I told her to expedite that process if possible and she states that she would talk to her sister. I had an extensive discussion about the entire process with her sister and today with her friend as well. All of their questions have been answered. cc: Luiz Hillman MD
--- NOTE | 2019-06-01 20:21 | HEMO/ONC PROGRESS NOTE ---
DATE: 06/01/2019 SUBJECTIVE: Ms. Fatima is lying in her hospital bed. There is a family friend at bedside. She is in no acute distress at this time. OBJECTIVE: Vital signs: Temperature 98.9 degrees, heart rate 95, respirations 15, blood pressure 116/58, O2 saturation 96% on room air. LABS AND OTHER STUDIES.: There are no new labs for today. Her most recent CBC does show a platelet count of 61,000, and overall white count of 2.1 with a granulocyte count of 1.24. She also has a hemoglobin of 10.2. PHYSICAL EXAM: The patient is resting comfortably and is in no acute distress. ASSESSMENT AND PLAN: 1. Acute myeloid leukemia. We previously treated the patient with Dacogen and venetoclax. Those treatments have been stopped while she is acutely ill. Unfortunately, her current performance status would not support any further treatment at this time. We also believe that the treatment has not been very effective and is no longer helping the patient's disease or current situation. We have again come in today and discussed with the patient that we believe hospice care at this point would be her better option. We also discussed that we will support her though if she does decide to go home with home health. We would be very willing to see her in the office to provide supportive care as needed. We, again, briefly discuss the services that hospice can provide. [facility] enrollment representative has already been to the patient's room as well. I did encourage the patient to try to make a decision here hopefully today or tomorrow, so, therefore, she can be discharged so she does not open herself up to some sort of secondary hospital infection. The patient verbalized understanding. 2. Multiple infections. The patient has been on antifungal as well as antibiotics. Dr. Gardner has evaluated the patient and feels that she no longer needs any of these medications as her infections have resolved. 3. Pancytopenia. This is now secondary to her disease. Again, we have noted that we do not feel like her counts are going to improve much beyond their current state. We recommend hospice care as per above. 4. Disposition. We recommend hospice. The patient is also considering home with home health. I will be happy to assist the patient with either in any way that we can. We will continue to follow along with the patient here in the hospital and if need be, we can follow along too with her as an outpatient. Dictated by DALILA Duncan for Cindi Koroma MD cc: Cindi Koroma MD I have seen and examined the patient and the above note reflects my history, physical exam, assessment and plan. Cindi Koroma MD [facility]
[2019-06-01] MEDS: REMERON PO SCH (21:07)
[2019-06-02] MEDS: LOPRESSOR PO SCH ×4 (04:35→21:23)
[2019-06-02] MEDS: PRILOSEC PO SCH (07:05)
[2019-06-02 08:14] LABS: BASO# 0.04 X1000 (0.0-0.2); BASO% 1.3 % (0.0-0.8); EOS# 0.02 X1000 (0.0-0.7); EOS% 0.7 % (0.0-10.0); HEMATOCRIT 31.4 % (37.0-47.0); HEMOGLOBIN 10.3 g/dL (12.0-16.0); LYMPH# 1.34 X1000 (1.2-3.4); LYMPH% 44.7 % (20.5-51.1); MCH 27.4 PG (27-31); MCHC 32.8 g/dL (33-37); MCV 83.5 FL (81-99); MONO% 3.3 % (1.7-9.3); MPV 10.9 FL (7.4-10.4); RBC 3.76 XMIL (4.2-5.4)
[2019-06-02 08:15] LABS: PLT 20 X1000 (130-400)
[2019-06-02] MEDS: TAPAZOLE PO SCH (09:35)
[2019-06-02] MEDS: MARINOL PO SCH ×2 (09:35→21:23)
[2019-06-02] MEDS: THERA M PLUS PO SCH (09:35)
[2019-06-02] MEDS: VITAMIN D PO SCH (09:35)
[2019-06-02] MEDS: ZYLOPRIM PO SCH ×2 (09:35→21:23)
[2019-06-02] MEDS: PAXIL PO SCH (09:35)
[2019-06-02 09:47] LABS: BANDS 2 % (0-1); LYMPHS 44 % (21-51); NRBC 4 % (0-0); SEGS 54 % (42-75)
[2019-06-02] MEDS ORDERED: NS 500 ML IV ONE (18:34)
[2019-06-02] MEDS: REMERON PO SCH (21:23)
--- NOTE | 2019-06-02 23:21 | PROGRESS NOTE ---
DATE: 06/02/2019 SUBJECTIVE: The patient is resting in bed. She states that she does not feel well today. She has not been eating. OBJECTIVE: Vital Signs: Temperature 98.9 degrees, blood pressure 135/50, heart rate 90, respirations 18, O2 saturation 94% on room air. General: This is a chronically ill-appearing, elderly female lying in bed, in no acute distress. Heart: S1, S2 normal. Regular rate and rhythm. Lungs: Clear to auscultation bilaterally. Abdomen: Positive bowel sounds. Soft, nontender, nondistended. Extremities: No edema. No cyanosis. Neurologic: The patient is alert and oriented x3. LABS: Platelets 20,000, white blood cell count 3, hemoglobin 10, hematocrit 31. ASSESSMENT AND PLAN: 1. Bilateral lobe pneumonia. Resolved. The patient has completed the antibiotic regimen. 2. Pansinusitis. Resolved. 3. Oral candidiasis. Resolved. 4. Orbital cellulitis. Improved and resolved. 5. Pancytopenia. The patient's platelet count is 20,000 today. We will give the patient a transfusion of platelets. 6. Neutropenia. Resolved. 7. Acute myeloid leukemia. Aware. The patient and her family have had a discussion with Dr. Koroma and they are no further plans for treatment at this time. The patient and her family have decided to go home with hospice tomorrow. 8. Hypothyroidism. Continue on Tapazole. 9. History of B-cell lymphoma. Aware. 10. Disposition. The patient and her family have decided to be discharged home with hospice tomorrow. Anna Chase has contacted [facility] and we will plan to discharge the patient home tomorrow, once all the equipment has been delivered to the patient's home. cc: Sapphire Keating MD
[2019-06-03 08:20] VITALS: BP 131/49
[2019-06-03] MEDS: TAPAZOLE PO SCH (09:07)
[2019-06-03] MEDS: MARINOL PO SCH (09:07)
[2019-06-03] MEDS: ZYLOPRIM PO SCH (09:07)
[2019-06-03] MEDS: VITAMIN D PO SCH (09:07)
[2019-06-03] MEDS: PAXIL PO SCH (09:07)
[2019-06-03] MEDS: PRILOSEC PO SCH (09:07)
[2019-06-03] MEDS: LOPRESSOR PO SCH (09:07)
[2019-06-03] MEDS: THERA M PLUS PO SCH (09:08)
[2019-06-03 10:47] LABS: HEMATOCRIT 28.5 % (37.0-47.0); HEMOGLOBIN 9.1 g/dL (12.0-16.0); MCHC 31.9 g/dL (33-37); MCV 84.6 FL (81-99); RBC 3.37 XMIL (4.2-5.4); RDW 15.6 % (11.5-14.5); WBC 2.26 X1000 (4.8-10.8)
--- NOTE | 2019-06-13 20:56 | DISCHARGE SUMMARY ---
ADMISSION DATE: 05/07/2019 DISCHARGE DATE: 06/03/2019 FINAL DISCHARGE DIAGNOSES: 1. Bilateral lobe pneumonia. 2. Neutropenic fever. 3. Pansinusitis. 4. Oral candidiasis. 5. Preseptal orbital cellulitis. 6. Pancytopenia. 7. Neutropenia. 8. Acute myeloid leukemia. 9. Hypothyroidism. 10. History of B-cell lymphoma. CONSULTATIONS: 1. ID consultation with Dr. Gardner. 2. Oncology consultation with Dr. Koroma. HOSPITAL COURSE: Ms. Fatima is a 78-year-old female with a history of diffuse B-cell lymphoma with AML who presented to the ER with a neutropenic fever. Imaging was done on admission that revealed severe bilateral pneumonia. The patient was admitted to the hospitalist service. Blood cultures were obtained and urine culture was obtained, as well as an influenza swab and the patient was admitted this PVC and started on broad-spectrum antibiotics, as well as fluids. After further assessment, the patient was noted to be suffering from a severe sinus infection, as well as orbital cellulitis. ID was consulted for assistance with management, as well as Oncology due to the patient's diagnosis of AML. The patient was noted to be severely neutropenic with an ANC of 0 on admission. The patient was placed on neutropenic precautions and treated aggressively with antifungal agents and antibiotics. The patient did develop oral candidiasis and treatment was initiated for that as well. The patient had a prolonged hospitalization due to her severe pancytopenia. The patient did require multiple transfusions of packed red blood cells and platelets over the course of her hospitalization. Slowly, the patient's counts started to improve. She was started on Granix and response was seen after several weeks of treatment. Eventually, the patient's pneumonia also improved and ultimately it resolved and so the antibiotics were discontinued. The patient had a discussion with the Oncology service about further treatment upon discharge from the hospital. It was then that the family and the patient decided that they were interested in hospice services. Palliative Care was consulted to assist with initiation. The patient was ultimately discharged home with hospice services. cc: Sapphire Keating MD
== END 2019-06-03 14:57 | disposition hospice, home (50) | DRG 193 ==
LOC: ED 11:20 → 2N 15:30 → SUATTDRO 15:30 → 3N 05-12 01:35
PROVIDERS: ATTEND Internal Medicine